=== PATIENT | female | born 1975 | race Caucasian/White ===

== ENCOUNTER → 2021-03-05 10:38 | Outpatient (CLI) | payer OTHER, SELFPAY ==
[2021-03-05 20:55] LABS: SARS-CoV-2 RNA PCR Negative
== END ==
PROVIDERS: PCP Physician Assistant; Visit Provider Physician Assistant
DX: R50.9 Fever, unspecified (principal); Z20.822 Contact with and (suspected) exposure to COVID-19
CPT/HCPCS: C9803; U0003; U0005

== ENCOUNTER 2021-09-01 18:06 | Emergency (ER) | payer OTHER, SELFPAY ==
--- NOTE | ~2021-09-01 | XR_ITS ---
EXAM: XR knee LT min 4V DATE: 09/01/2021 19:47 HISTORY: pain, swelling . COMPARISON: None available. FINDINGS: Normal mineralization. No fracture or dislocation. No lytic or blastic lesion. Joint space s are maintained. No erosion or periosteal change. Soft tissues within normal limits. IMPRESSION: No acute osseous finding in the left knee. Reviewed, dictated and finalized at location K.
[2021-09-01 18:10] VITALS: BP 152/83; PULSE 87; RESP 20; TEMP 36.8; O2SAT 99
--- NOTE | 2021-09-01 19:10 | ED.LOWEXIN ---
HPI - Extremity Injury (Lower) General Chief Complaint: Extremity Injury, Lower <Gracy Griffin PA-C - Last Filed: 09/02/21 01:37> Stated Complaint: left knee injury <CONRADO Garcia Last Filed: 09/02/21 01:37> Time Seen by Provider: 09/01/21 18:53 <CONRADO Garcia Last Filed: 09/02/21 01:37> Source: patient <CONRADO Garcia Last Filed: 09/02/21 01:37> Mode of arrival: ambulatory <CONRADO Garcia Last Filed: 09/02/21 01:37> Limitations: no limitations <CONRADO Garcia Last Filed: 09/02/21 01:37> History of Present Illness HPI Narrative: Patient is a 45-year-old female who presents the ED with report of left knee pain. Patient reports she sustained a twisting injury in June and has had significant pain in her left knee since then. No fall at that time. She was seen at a hospital in [place] in July and had x-rays done, which did not show any acute findings. She has not seen her primary or any usability specialist for this. The pain has since continued. Pain became worse yesterday and today, prompting her evaluation to the ED. She states the pain is worse after prolonged sitting or with walking. She has been utilizing ibuprofen, Tylenol, ice, elevation at home without much relief. No further injury. No fever, chills, redness or warmth of knee. No significant swelling. No numbness/tingling. Patient does have a history of rheumatoid arthritis. <CONRADO Garcia Last Filed: 09/02/21 01:37> Related Data Allergies/Adverse Reactions: Allergies Allergy/AdvReac Type Severity Reaction Status Date / Time Quinolones Allergy Severe throat Verified 09/01/21 18:34 swells [id number] Antimigraine Allergy Mild Unknown Verified 09/01/21 18:34 Agents amoxicillin Allergy Unknown Unknown Verified 09/01/21 18:34 ciprofloxacin Allergy Unknown Rash Verified 09/01/21 18:34 levofloxacin Allergy Unknown Rash Verified 09/01/21 18:34 zolpidem Allergy Unknown Rash Verified 09/01/21 18:34 PIPERACILLIN SODIUM Allergy Unknown Unknown Uncoded 09/01/21 18:34 TAZOBACTAM SODIUM Allergy Unknown Unknown Uncoded 09/01/21 18:34 <Gracy Griffin PA-C - Last Filed: 09/02/21 01:37> Review of Systems Review of Systems: CONSTITUTIONAL: Denies fever, chills. CARDIOVASCULAR: Denies chest pain. RESPIRATORY: Denies dyspnea. SKIN: Denies redness or warmth of L knee. Denies L knee swelling. MUSCULOSKELETAL: Reports L knee pain. NEUROLOGIC: Denies numbness, tingling, or weakness. <Gracy Griffin PA-C - Last Filed: 09/02/21 01:37> All systems reviewed & are unremarkable except as noted in HPI and below <Gracy Griffin PA-C - Last Filed: 09/02/21 01:37> [facility] Past Medical History Medical History: Medical History Anemia, unspecified Yajaira's thyroiditis Hypothyroidism, unspecified Restless leg syndrome Rheumatoid arthritis Vitamin D deficiency <Gracy Griffin PA-C - Last Filed: 09/02/21 01:37> Surgical History Surgical History: Surgical History (Updated 09/01/21 @ 20:07 by Gracy Griffin PA-C) History of section History of ear surgery <Gracy Griffin PA-C - Last Filed: 09/02/21 01:37> Family History Family History: Family History (Updated 09/26/15 @ 23:21 by DOCTOR UNKNOWN) Mother Family history of diabetes mellitus in first degree relative Family history of type 2 diabetes mellitus Father Patient's father is in good health Grandparent Family history of type 2 diabetes mellitus Other Family history of cardiovascular disease <Gracy Griffin PA-C - Last Filed: 09/02/21 01:37> Social History Social History: Social History Smoking status: Never smoker Alcohol intake: never <Gracy Griffin PA-C - Last Filed: 09/02/21 01:37> Exam Narrative: GENERAL: Well appearing, well-nourished, non-t
[2021-09-01] MEDS: KETOROLAC (*BKC) 60 MG/2 ML VIAL IM (20:08)
== END 2021-09-01 20:11 | disposition home or self-care (01) ==
PROVIDERS: Emergency Provider Emergency Medicine; PCP Physician Assistant
DX: M23.92 Unspecified internal derangement of left knee (principal); D64.9 Anemia, unspecified; E03.9 Hypothyroidism, unspecified; M19.90 Unspecified osteoarthritis, unspecified site; G25.81 Restless legs syndrome
CPT/HCPCS: 73564; 96372; 99283; J1885

== ENCOUNTER → 2021-09-17 09:14 | Outpatient (CLI) | payer OTHER, SELFPAY ==
--- NOTE | ~2021-09-17 | MR_ITS ---
EXAMINATION: MR knee LT wo con DATE: 09/17/2021 09:43 INDICATION: Left knee pain and swelling post injury one month prior. TECHNIQUE: Magnetic resonance imaging (MRI) of the left knee was performed without intravenous contra st. Sequences included coronal PD-weighted FSE, coronal PD-weighted FS FSE, sagittal T2-weighted FSE , sagittal PD-weighted FS FSE and axial PD weighted fat saturated FSE. COMPARISON: None. FINDINGS: Medial compartment: Medial meniscus is normal. There is a nondisplaced chondral flap tear which begins along the surface of the articular cartilage at the lateral aspect of the anterior weightbearing medial femoral condyle and which extends approximately 8 mm posteriorly and medially where it involves greater than 50% the cartilage thickness. Articular cartilage is otherwise normal. Lateral compartment: Lateral meniscus is normal. Articular cartilage is normal. Patellofemoral compartment: Additional small deep chondral fissuring with small region of delamination along the bone chondral in terface measuring approximate 5 mm medial to lateral at the central aspect of the medial patellar fac et. Heterogeneous cartilage signal suggesting deep fissuring at the caudal left. The trochlear groove . Ligaments and tendons: Anterior and posterior cruciate ligaments are normal. The medial collateral ligament and fibular libia ateral ligament complex are normal. The extensor mechanism is normal. The visualized medial and later al hamstring tendons as well as the iliotibial band are normal. Fluid: Physiologic amount of fluid in the joint space. No loose osteochondral bodies identified. Focal mild pretibial edema without discrete bursal fluid collection. Osseous/other: Normal marrow signal. No fracture or pathologic marrow replacing process. IMPRESSION: 1. Nondisplaced deep chondral flap tear at the anterior weightbearing medial femoral condyle. 2. Deep chondral fissuring at the central medial patellar facet and inferior aspect of the trochlear groove, the former also with associated small region of delamination at the bone chondral interface. Reviewed, dictated and finalized at location A. IMPRESSION: 1. Nondisplaced deep chondral flap tear at the anterior weightbearing medial fe moral condyle. 2. Deep chondral fissuring at the central medial patellar facet and inferior as pect of the trochlear groove, the former also with associated small region of d elamination at the bone chondral interface.
== END ==
PROVIDERS: PCP Physician Assistant; Visit Provider Orthopaedic Surgery
DX: S76.012A Strain of muscle, fascia and tendon of left hip, initial encounter (principal); X58.XXXA Exposure to other specified factors, initial encounter
CPT/HCPCS: 73721

== ENCOUNTER 2021-10-20 00:51 | Day surgery (SDC) | payer OTHER, SELFPAY ==
[2021-10-13 14:05] VITALS: BMI 33.6
--- NOTE | 2021-10-13 17:31 | SUR.PREOP ---
Report to the Outpatient Waiting Room, entrance under the green pavilion located off [facility], at time 1030 on date 10/20/21. OR Time: 1230. - You and your visitor will be asked to self-screen and do not enter if you have any COVID symptoms. - Only one visitor and NO children visitors are allowed at this time. - The patient visitor is requested to leave or wait in car when not with patient due to restrictions. - A mask is required within the hospital. Patients may have clear liquids (water, carbonated beverages, clear teas, apple juice) until 3 hours prior to surgery with a maximum of 20 ounces. - No food from midnight until time of surgery - Infants may have breast milk until 4 hours before surgery, infant formula 6 hours prior to surgery. - Children will be allowed to drink immediately following surgery. If applicable, please bring a bottle or sippy cup to assist with drinking. Juice, water, soda, and popsicles are readily available. For infants on formula, please bring formula the day of surgery. Pacifiers are allowed. Take the following medications with a SIP of water the morning of surgery: levothyroxine Medications to discontinue per physician n/a Date to take last dose n/a Please no make-up, nail bulgarian, hairspray, perfume, deodorant, or body powder the day of surgery. No jewelry (including any body piercings) or valuables the day of surgery, leave them at home. Please take a shower or bath the night before, or the morning of, surgery with an antibacterial soap. Wear comfortable, loose fitting clothing. Children are encouraged to wear pajamas. - Jewelry must be removed prior to entering the operating room. Rings and piercings that are not removed may be cut off. - The hospital will not accept responsibility for valuables. - Please leave all valuables, including medications, at home the day of surgery. If you are going home after surgery, a licensed [employer] company driver must drive you home. - NO public transportation without another adult. - We recommend that an adult stay with you for 24 hours following discharge. - We also recommend that you do not drive, make important decision, drink alcoholic beverages, or take any drugs that were not prescribed by your health care provider for at least 24 hours after your discharge time. For Pediatric surgeries, we recommend two adults accompany the child home (only one inside the building at this time). Follow any additional instructions given to you from your surgeon. If you or anyone in your household have experienced Covid symptoms in the past week, please notify your surgeon or the nurse liaison at the phone number below for possible testing. Telephone instructions given to miladys cano and asked if any additional questions and then verbalized understanding. Patient advised to call surgeon office or pre surgery nurse liaison [phone] if any additional questions.
--- NOTE | 2021-10-19 11:36 | WPDANESEPPF ---
Anes - Initial Pre Proc Eval Procedure: Operation Date: 10/20/21 12:30 Proposed Procedures p Left Knee Arthroscopy with Repair Chondral Flap Versus Chondroplasty - Lukasz Rubio MD <Asa Rojas MD - Last Filed: 10/23/21 11:50> Date/Time: 10/19/21 11:36 <Asa Rojas MD - Last Filed: 10/23/21 11:50> Surgeon: Lukasz Rubio MD <Asa Rojas MD - Last Filed: 10/23/21 11:50> Pre Op Diagnosis: left knee medial chondral flap tear <Asa Rojas MD - Last Filed: 10/23/21 11:50> Patient Data Age: 45 Gender: F Height: 1.55 m Weight: 80.78 kg <Asa Rojas MD - Last Filed: 10/23/21 11:50> Allergies Allergy/AdvReac Type Severity Reaction Status Date / Time ciprofloxacin Allergy Severe Anaphylaxis Verified 10/20/21 12:01 levofloxacin Allergy Intermediate Hives Verified 10/20/21 12:01 zolpidem Allergy Mild Rash Verified 10/20/21 12:01 <Asa Rojas MD - Last Filed: 10/23/21 11:50> Home Medications Medication Instructions Recorded Confirmed Type infliximab-dyyb 100 mg intravenous See Rx Instructions IV .COMPLEX 10/06/21 10/20/21 History solution (Inflectra) levothyroxine 112 mcg capsule 112 mcg PO DAILY 10/06/21 10/20/21 History methotrexate sodium 10 mg tablet 20 mg PO WEEKLY 10/06/21 10/20/21 History hydrocodone 5 mg-acetaminophen 325 1 tablet PO BID PRN pain #14 tabs 10/20/21 Rx mg tablet <Asa Rojas MD - Last Filed: 10/23/21 11:50> Patient hx anesthesia problems: none <Taras Paulino DO - Last Filed: 10/20/21 13:48> Family hx anesthesia problems: none <Taras Paulino DO - Last Filed: 10/20/21 13:48> Results Review: All pre-operative results and documents have been reviewed as part of the pre-operative evaluation. <Asa Rojas MD - Last Filed: 10/23/21 11:50> [facility] Past Medical History Medical History: Medical History (Updated 10/06/21 @ 08:16 by Zeynep Aguillon RT(R)) Anemia, unspecified Yajaira's thyroiditis Hypothyroidism, unspecified Restless leg syndrome Rheumatoid arthritis Vitamin D deficiency Wears glasses <Asa Rojas MD - Last Filed: 10/23/21 11:50> Surgical History Surgical History: Surgical History (Updated 10/06/21 @ 08:17 by Zeynep Aguillon RT(R)) History of section History of ear surgery History of kidney surgery History of tympanoplasty <Asa Rojas MD - Last Filed: 10/23/21 11:50> Family History Family History: Family History (Updated 10/06/21 @ 08:18 by Zeynep Aguillon RT(R)) Mother Family history of diabetes mellitus in first degree relative Family history of type 2 diabetes mellitus Father Patient's father is in good health Grandparent Family history of type 2 diabetes mellitus Sibling Amyloidosis Other Diabetes mellitus Family history of cardiovascular disease <Asa Rojas MD - Last Filed: 10/23/21 11:50> Social History Social History: Social History Smoking status: Never smoker Alcohol intake: never Substance use: never Living arrangements: with family Gender identity (if verbalized by the patient): Female Spiritual care concerns: No <Asa Rojas MD - Last Filed: 10/23/21 11:50> Anes - Eval Final PreProcedure Day of Procedure 10/19/21 11:36 <Asa Rojas MD - Last Filed: 10/23/21 11:50> Patient weight: obese <Asa Rojas MD - Last Filed: 10/23/21 11:50> Heart: regular rate and rhythm <Asa Rojas MD - Last Filed: 10/23/21 11:50> Lungs: clear to auscultation and normal air movement <Asa Rojas MD - Last Filed: 10/23/21 11:50> Airway: Mallampati scale class II <Asa Rojas MD - Last Filed: 10/23/21 11:50> Neurological: alert and oriented <Asa Rojas MD - Last Filed: 10/23/21 11:50> Last oral intake:
[2021-10-20] VITALS (9 sets, daily range): BP systolic 107–134; BP diastolic 65–78; PULSE 65–91; RESP 10–16; TEMP 36.3–36.5; O2SAT 99–100
--- NOTE | 2021-10-20 07:11 | WPDHPUPDATE1 ---
History and Physical Update Update Date/Time: 10/20/21 07:11 History and Physical has been reviewed, including an updated exam of the patient. There are NO changes in the patient's condition. Risks, benefits, and alternatives have been discussed and questions answered. Patient agrees to proceed with procedure.
[2021-10-20] MEDS: LACTATED RINGERS 1,000 ML 30 ML IV CONT ×2 (12:05→16:04)
[2021-10-20] MEDS: ACETAMINOPHEN 500 MG TABLET 1000 MG PO (12:05)
[2021-10-20] MEDS: CELECOXIB 200 MG CAPSULE PO (12:05)
--- NOTE | 2021-10-20 12:10 | SUR.PREOP ---
pt states has used crutches before and comfortable using,ordered crutches for discharge.
[2021-10-20] MEDS: ceFAZolin 2 GM/D5W 50 ML 2 GM/50 ML BAG IVPB (15:03)
--- NOTE | 2021-10-20 16:10 | W.PM.PROC2 ---
Procedure Note - Detailed Date of Procedure 10/20/21 Pre-op Diagnosis left knee medial chondral flap tear Post-op Diagnosis Same Procedure Performed LEFT KNEE SCOPE Surgeon Lukasz Rubio MD Anesthesia General Description of Procedure PATIENT WAS TAKEN TO THE OPERATING ROOM SUITE. ANESTHESIA WAS INDUCED. THE LEFT LEG WAS PREPPED AND DRAPED STERILE. TROCARS WERE PLACED IN TO THE KNEE JOINT IN THE USUAL FASHION. THE CAMERA WAS INTRODUCED. THERE WAS MILD CHONDROMALACIA TO THE PATELLA FEMORAL JOINT. THE MEDIAL COMPARTMENT SHOWED A CHONDRAL FLAP LESION ON THE MAIN WEIGHT BEARING SURFACE OF THE MEDIAL FEMORAL CONDYLE MEASURING APPROXIMATELY [id number] WITH A DEPTH OF 3 MM. THE TEAR WAS IRREGULAR. THERE WAS VARYING THICKNESS. THERE WAS NO FULL THICKNESS COMPONENT TO THE TEAR AND THEREFORE NO SUBCHONDRAL BONE EXPOSED. THERE WAS NO CHONDROMALACIA TO THE PLATEAU. THERE WAS NO MEDIAL MENISCUS TEAR. USING A SHAVER THE TEAR WAS RESECTED DOWN TO A SMOOTH BASE AND CHONDROPLASTY WAS PREFORMED. SYNOVIUM WAS IMPINGING ON THE FLAP AND A SYNOVECTOMY WAS PREFORMED IN THE REGION. THE ACL WAS INTACT. THE LATERAL MENISCUS WAS NOT TORN. THE LATERAL COMPARTMENT HAD NO CHONDROMALACIA AT THE LATERAL PLATEAU OR LATERAL FEMORAL CONDYLE. THE PATELLA TRACKED WELL WITH THE TROCHLEA AND HAD NO TILT. THE INSTRUMENTS WERE REMOVED AFTER THOROUGH IRRIGATION OF THE KNEE JOINT. THE WOUNDS WERE APPROXIMATED WITH 4.0 NYLON. STERILE DRESSING WAS APPLIED. PATIENT WAS EXTUBATED. Estimated Blood Loss 5 Complications No immediate complications Condition Stable Disposition PACU
== END 2021-10-20 18:15 | disposition home or self-care (01) ==
PROVIDERS: PCP Physician Assistant; Visit Provider Orthopaedic Surgery
PROC: (CPT 29870; principal; 2021-10-20 12:30)
DX: M22.42 Chondromalacia patellae, left knee (principal); M23.8X2 Other internal derangements of left knee; S89.92XA Unspecified injury of left lower leg, initial encounter; X50.1XXA Overexertion from prolonged static or awkward postures, initial encounter; E06.3 Autoimmune thyroiditis; M06.9 Rheumatoid arthritis, unspecified; E55.9 Vitamin D deficiency, unspecified
CPT/HCPCS: 29877; A9270; J0690; J1100; J1170; J1885; J2250; J2405; J2704; J3010; J7120

== ENCOUNTER 2022-04-28 10:25 | Emergency (ER) | payer OTHER, BC, SELFPAY ==
--- NOTE | ~2022-04-28 | CT_ITS ---
EXAMINATION: CT abdomen pelvis wo con DATE: 04/28/2022 15:01 INDICATION: Left flank pain. Hematuria. CVA tenderness. TECHNIQUE: Computed tomography (CT) of the abdomen and pelvis was performed without intravenous contr ast. The dose-length product was 223.27 mGy-cm. Automated exposure control and iterative reconstructi on technique were employed. COMPARISON: CT dated 12/21/2013. FINDINGS: Heart size is normal. No significant pleural or pericardial effusion. The liver, spleen, pa ncreas, adrenal glands and kidneys are unremarkable. Gallbladder is present. Nonobstructive bowel gas pattern. Lung bases are unremarkable. No acute bone or joint abnormality. Nonobstructive bowel patte rn. No abnormal pelvic masses or fluid collections. No significant vascular abnormality. No lymphaden opathy. There is atrophy of the lower pole of the left kidney. Bladder is unremarkable. No hydronephr osis. IMPRESSION: 1. No acute abdominal abnormality. No findings to account for patient's symptoms. Reviewed, dictated and finalized at location B. ENTARY SUPERVISOR IMPRESSION: 1. No acute abdominal abnormality. No findings to account for patient's symptom s.
[2022-04-28 10:56] VITALS: BP 131/78; PULSE 72; RESP 18; TEMP 36.8; O2SAT 99
[2022-04-28 11:14] LABS: Appearance Urine Clear (Clear); Bacteria Urine None Seen /hpf; Bilirubin Urine Negative (Negative); Blood Urine 2+ (Negative); Color Urine Yellow (Yellow); Glucose Urine UA Negative (Negative); Ketones Urine Negative (Negative); Leukocyte Esterase Ur Negative LEU/UL (Negative); Nitrate Urine Negative (Negative); Non Pathogenic Casts 0-2; Protein Urine Negative (Negative); Specific Grav Ur 1.006 (1.001-1.035); Squamous Epithelial Cell Urine Few /hpf (Few); Urobilinogen Urine 0.2 mg/dL (<2.0); WBC Urine 0-5 /hpf
[2022-04-28 11:17] LABS: Add Urine Microscopic? YES
[2022-04-28 13:44] LABS: Basophils Absolute Auto 0.1 K/mm3 (0.0-0.1); Basophils Percent Auto 1.1 % (0.2-1.2); Eosinophils Absolute Auto 0.2 K/mm3 (0-0.3); Eosinophils Percent Auto 2.4 % (0-4.4); Hematocrit 44.1 % (37.0-47.0); Hemoglobin 14.9 g/dL (12.0-15.0); Immature Granulocyte Absolute 0.01 K/mm3 (0.00-0.031); Immature Granulocyte Percent A 0.1 % (0-0.5); Lymphocytes Absolute Auto 2.55 K/mm3 (0.9-3.2); Lymphocytes Percent Auto 33.8 % (18.3-44.2); Mean Corpuscular HGB Conc 33.8 g/dl (32-36); Mean Corpuscular Hemoglobin 30.7 pg (26-34); Mean Corpuscular Volume 90.9 fl (80-100); Mean Platelet Volume 11.3 fl (7.4-10.4); Monocytes Absolute Auto 0.6 K/mm3 (0.1-0.6); Monocytes Percent Auto 7.4 % (2.6-8.5); Neutrophils Absolute Auto 4.2 K/mm3 (1.3-6.7); Neutrophils Percent Auto 55.2 % (45.5-73.1); Platelet Count Result 343 k/mm3 (150-375); Red Blood Count 4.85 M/mm3 (4.2-5.4); Red Cell Distribution Width 13.5 % (11.5-14.5); White Blood Count 7.6 K/mm3 (4.5-10.0)
--- NOTE | 2022-04-28 14:11 | PC.NURSE ---
Dr. Beckwith at bedside to assess pt.
[2022-04-28] MEDS: SODIUM CHLORIDE 0.9% IV 1,000 ML 999 ML IV CONT (14:29)
[2022-04-28] MEDS: PHENAZOPYRIDINE HCL 100 MG TABLET PO (14:30)
[2022-04-28 14:32] LABS: Alanine Aminotransferase 20 U/L (6-35); Albumin Level 4.8 g/dL (3.5-5.1); Alkaline Phosphatase 86 U/L (38-126); Anion Gap 9 mmol/L (8-16); Aspartate Amino Transferase 23 U/L (14-36); Bilirubin,Total 0.5 mg/dL (0.2-1.3); Blood Urea Nitrogen 16 mg/dL (7-17); Calcium 9.2 mg/dL (8.4-10.2); Carbon Dioxide 22 mmol/L (22-30); Chloride 104 mmol/L (98-107); Estimated Glomerular Filt Rate > 60; Glucose 81 mg/dL (65-110); Potassium 4.1 mmol/L (3.4-5.0); Sodium 135 mmol/L (137-145)
--- NOTE | 2022-04-28 15:01 | ED.GENADULT ---
HPI - General Adult General Chief complaint: Urogenital-Female Stated complaint: KIDNEY INFECTION, FLANK PAIN Time Seen by Provider: 04/28/22 13:52 History of Present Illness HPI narrative: 46-year-old female with history of urinary tract infection presenting to the emergency department for evaluation of worsening back pain. Patient had previously been on Augmentin and was switched on Tuesday to Bactrim. Patient states that she is still having some lower back pain with associated nausea and chills. Related Data Home Medications Medication Instructions Recorded Confirmed infliximab-dyyb 100 mg intravenous See Rx Instructions IV .COMPLEX 10/06/21 12/04/21 solution (Inflectra) levothyroxine 112 mcg capsule 112 mcg PO DAILY 10/06/21 12/04/21 methotrexate sodium 10 mg tablet 20 mg PO WEEKLY 10/06/21 12/04/21 Allergies Allergy/AdvReac Type Severity Reaction Status Date / Time ciprofloxacin Allergy Severe Anaphylaxis Verified 04/28/22 13:22 levofloxacin Allergy Intermediate Hives Verified 04/28/22 13:22 zolpidem Allergy Mild Rash Verified 04/28/22 13:22 Review of Systems Review of Systems: All systems reviewed & are unremarkable except as noted in HPI and below PMFSH Past Medical History Medical History Anemia, unspecified Yajaira's thyroiditis Hypothyroidism, unspecified Restless leg syndrome Rheumatoid arthritis Vitamin D deficiency Wears glasses Surgical History Surgical History History of section History of ear surgery History of kidney surgery History of tympanoplasty Family History Family History Mother Family history of diabetes mellitus in first degree relative Family history of type 2 diabetes mellitus Father Patient's father is in good health Grandparent Family history of type 2 diabetes mellitus Sibling Amyloidosis Other Diabetes mellitus Family history of cardiovascular disease Social History Social History Smoking status: Never smoker Alcohol intake: never Substance use: never Living arrangements: with family Gender identity (if verbalized by the patient): Female Spiritual care concerns: No Exam Narrative: APPEARANCE: Well appearing, no pain, no distress, well-nourished. HEAD: normocephalic, atraumatic. EYES: PERRLA/EOMI, conjunctivae clear. NOSE: Normal no drainage NECK: Supple. No adenopathy, no masses. RESPIRATORY: Airway patent, respirations nonlabored. Clear to auscultation bilaterally, no rales, rhonchi, wheezing. CARDIOVASCULAR: Regular rate and rhythm without murmurs rubs or gallops. ABDOMINAL: Soft, nontender, nondistended, normal bowel sounds MUSCULOSKELETAL: Moves all extremities. Strength/ROM intact, No edema, No calf tenderness. NEURO: Alert. Cranial nerves II through XII intact. SKIN: Warm, dry. Normal Color Course Course Emergency Course: 46-year-old female with hematuria currently on antibiotics with concern for pyelonephritis. Patient is afebrile with no leukocytosis. Patient's CMP is similar to her previous. UA does show evidence of hematuria but no evidence of infection. CT abdomen pelvis was ordered to rule out ureteral calculi, patient has no prior history of ureteral calculi. Patient is currently on antibiotics and patient was encouraged to continue taking her antibiotics. Patient was updated the results of her CT scan showing no significant retained urinary calculi and no evidence of pyelonephritis. Patient was afebrile with no leukocytosis no tachycardia and was normotensive. All question concerns were addressed and patient was well-appearing and be discharged from the emergency department. Vital Signs Vital signs: Vital Signs Temperature 98.2 F 04/28/22 10:56 Pulse Rate 72 04/28/22 10:56 Res
== END 2022-04-28 16:29 | disposition home or self-care (01) ==
PROVIDERS: Emergency Provider Emergency Medicine; PCP Physician Assistant
DX: N39.0 Urinary tract infection, site not specified (principal); R10.9 Unspecified abdominal pain; E06.3 Autoimmune thyroiditis; E03.9 Hypothyroidism, unspecified; E55.9 Vitamin D deficiency, unspecified; G25.81 Restless legs syndrome; M06.9 Rheumatoid arthritis, unspecified; Z86.2 Personal history of diseases of the blood and blood-forming organs and certain disorders involving the immune mechanism
CPT/HCPCS: 36415; 74176; 80053; 81001; 85025; 96360; 96361; 99284; A9270; J7030

== ENCOUNTER → 2022-12-02 13:35 | Outpatient (CLI) | payer OTHER, BC, SELFPAY ==
--- NOTE | ~2022-12-02 | XR_ITS ---
XR chest 2V DATE: 12/02/2022 13:59 INDICATION: Cough TECHNIQUE: 2 views COMPARISON: 07/30/2015 PA and lateral chest FINDINGS: Normal heart size. No hilar or mediastinal enlargement. No pulmonary infiltrate or consolid ation, pleural effusion or pulmonary vascular congestion or pneumothorax is detected. IMPRESSION: No active cardiopulmonary disease Reviewed, dictated and finalized at location L.
== END ==
PROVIDERS: PCP Physician Assistant; Visit Provider Physician Assistant
DX: R05.9 Cough, unspecified (principal)
CPT/HCPCS: 71046

== ENCOUNTER 2024-05-25 12:13 | Outpatient (CLI) | payer OTHER, SELFPAY ==
--- NOTE | ~2024-05-25 | XR_ITS ---
EXAMINATION: XR chest 2V 05/25/2024 12:26 INDICATION: Low-grade pyrexia. Fever. PROCEDURE: 2 view chest COMPARISON: Comparison to multiple prior studies sequentially, with oldest reviewed study dated 09/2011. FINDINGS: The lungs are clear. The cardiomediastinal silhouette is within normal limits. There are no pleural effusions. There is no pneumothorax suspected. IMPRESSION: 1: NO ACUTE CARDIOPULMONARY DISEASE. Reviewed, dictated and finalized at location A.
== END 2024-05-25 12:14 | disposition home or self-care (01) ==
LOC: MICIMG 12:16
PROVIDERS: PCP Physician Assistant; Visit Provider Physician Assistant
DX: R50.9 Fever, unspecified (principal)
CPT/HCPCS: 71046

== ENCOUNTER 2024-07-04 09:37 | Emergency (ER) | payer OTHER, SELFPAY ==
--- NOTE | ~2024-07-04 | CT_ITS ---
EXAMINATION: CT abdomen pelvis w con DATE: 07/04/2024 12:25 INDICATION: Abdominal pain, nausea and vomiting TECHNIQUE: Computed tomography (CT) of the abdomen and pelvis was performed with 100 mL Omnipaque-350 intravenous contrast. Automated exposure control and iterative reconstruction technique were employe d. The dose-length product was 280.33 mGy-cm. COMPARISON: 04/28/2022 FINDINGS: Lung bases are clear. Heart size is normal. No pericardial or pleural effusion. 5 mm low-attenuation likely hepatic cyst versus hemangioma at the dome of the liver. Gallbladder, spleen, pancreas, bilate ral adrenal glands and right kidney are normal. 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 It is unclear from the provided images. There is fusion of the ureters proximal to the bladder or complete separate left ureters. Bladder is normal. 3.5 cm subserosal fibroid along the anterior body of the anteverted uterus. 1.7 cm left ovarian cyst/follicl e. Right ovary is unremarkable. Small amount of likely physiologic free fluid in the deep pelvis. [place] els including the appendix are normal. No abscess or free intraperineal gas. No pathologically enlarg ed abdominal or pelvic lymphadenopathy. Mild lumbar and lower thoracic spondylosis. IMPRESSION: 1. Small amount of likely physiologic free fluid in the deep pelvis. No other acute intra-abdominal/p elvic process. 2. Moderate atrophy at the lower pole of the left kidney likely secondary to a duplicated renal colle cting system which can predispose towards reflux and ascending urinary tract infection particularly i nvolving the lower pole and which may account for the chronic atrophy. Reviewed, dictated and finalized at location A. IMPRESSION: 1. Small amount of likely physiologic free fluid in the deep pelvis. No other a cute intra-abdominal/pelvic process. 2. 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
[2024-07-04 10:04] VITALS: BP 111/57; PULSE 84; RESP 16; TEMP 36.6; O2SAT 98
[2024-07-04 10:09] LABS: Basophils Percent Auto 0.2 % (0.2-1.2); Eosinophils Absolute Auto 0.1 K/mm3 (0-0.3); Eosinophils Percent Auto 1.3 % (0-4.4); Hematocrit 39.2 % (37.0-47.0); Hemoglobin 12.4 g/dL (12.0-15.0); Immature Granulocyte Absolute 0.03 K/mm3 (0.00-0.031); Immature Granulocyte Percent A 0.3 % (0-0.5); Lymphocytes Percent Auto 3.4 % (18.3-44.2); Mean Corpuscular HGB Conc 31.6 g/dl (32-36); Mean Corpuscular Volume 94.9 fl (80-100); Mean Platelet Volume 10.2 fl (7.4-10.4); Monocytes Absolute Auto 0.3 K/mm3 (0.1-0.6); Monocytes Percent Auto 3.2 % (2.6-8.5); Neutrophils Percent Auto 91.6 % (45.5-73.1); Platelet Count Result 230 k/mm3 (150-375); Red Blood Count 4.13 M/mm3 (4.2-5.4); Red Cell Distribution Width 14.6 % (11.5-14.5); White Blood Count 8.7 K/mm3 (4.5-10.0)
--- NOTE | 2024-07-04 10:10 | PC.NURSE ---
Patient asked to provide urine specimen. Patient reports she is unable at this time.
--- OUTSIDE RECORDS SUMMARY | 2024-07-04 10:12 | XMS_ITS | Encounter Summary ---
Author Organization [facility] Address [address] [place] [address] Care Team Providers Care Fbi Profiler Name Role Phone Gisele Medina Primary Care Pr ovider Rosita Aguilera MD Unavailable [phone] Encounter Details Date Type Department Care Team (Late st Contact Info) Description 07/03/2021 Orders Only [facility] Health Information Management [address] [place] [address] Scanning, Provider Social History Tobacco Use Types Packs/Day Years Used Date Smoking Tobacco: Never Smokeless Tobacco: Never Alcohol Use Standard Drinks/Week Comments Not Currently 0 (1 standard drink = 0.6 oz pur e alcohol) Comments Unknown Sex and Gender Information Value Date Recorded Sex Assigned at Not on file Legal Sex Female 11:57 PM [place]OVER Gender Identity Not on file Sexual Orientation Not on file documented as of this encounter Plan of Treatment Not on file documented as of this encounter Procedures Procedure Name Priority Date/Time Associated Diagnosis Comments SCAN - OTHER ORDERS 07/03/2021 documented in this encounter Results * SCAN - OTHER ORDERS (07/03/2021) us Provider Scanning Final Result documented in this encounter Visit Diagnoses Not on filedocumented in this encounter Additional Health Concerns Infection Onset Date Last Indicated Resolved Time COVID: Recovered Comment:Added based on recent COVID infection. 03/29/2021 03/31/2021 07/27/2021 3:05 AM C DT COVID: Suspected 01/01/2022 01/01/2022 01/02/2022 3:06 AM CDT COVID: Suspected 01/01/2022 01/01/2022 01/02/2022 8:59 AM CDT COVID: Suspected 07/02/2022 07/02/2022 07/02/2022 11:33 PM CDT COVID: Suspected 11/24/2022 11/24/2022 11/24/2022 3:44 PM CDT COVID: Suspected 05/18/2024 05/18/2024 05/18/2024 3:54 PM CDT documented as of this encounter Care Teams Fbi Profiler Relationship Specialty Start Date End Date Gisele Medina PA PCP - General 09/16/16 Rosita Aguilera MD [address] [place] [address] Medical Oncologist/Composition Weatherboard Installer Hematology 04/30/20 documented as of this encounter
--- OUTSIDE RECORDS SUMMARY | 2024-07-04 10:12 | XMS_ITS | Referral Summary ---
Author Organization [facility] Address [address] [place] [address] Care Team Providers Care Electric Blanket Wirer Name Role Phone Gisele Medina Primary Care Pr ovider Rosita Aguilera MD [facility] [phone] Encounters * This document contains information received from the source organization and may not represent a complete record from that organization. Date Type Department Care Team Description 06/14/2024 8:00 AM CDT Infusion [facility] Infusion Therapy [address] [facility] 5th [place] [address] [place] [address] Long-term current use of high risk medication other than anticoagulant (Primary Dx) 05/18/2024 9:39 AM CDT - 05/18/2024 11:59 PM CDT Hospital Encounter [facility] [address] [place] [address] Respiratory illness; Fever, unspecified fever cause; Cough, unspecified type; Body aches; Nonintractable headache, unspecified chronicity pattern, unspecified headache type; Sore throat; Nasal congestion; Runny nose; Fatigue, unspecified type Discharge Disposition: Discharge to home or self care 05/18/2024 9:45 AM CDT Clinical Support [facility] at [address] [address] Encounter for screening for COVID-19 [Z11.52] (Primary Dx) 05/17/2024 1:00 PM CDT Telemedicine [facility] Psychiatry [address] [facility] 2nd [address] [place] [id number] Leandra Yanez, JOSEPH Adjustment disorder with depressed mood in remission (Primary Dx) 05/10/2024 Telephone [facility] Cardiology [address] [facility] 8th [place] [address] [place] [address] Anand Portillo New Patient 05/03/2024 1:00 PM TEACHER OF GIFTED STUDENTS Infusion [facility] Infusion Therapy [address] [facility] 5th [place] [address] [place] [address] Long-term current use of high risk medication other than anticoagulant (Primary Dx) 04/19/2024 9:00 AM TEACHER OF GIFTED STUDENTS Office Visit [facility] Psychiatry [address] [facility] 2nd Floor [address] [place] [address] Leandra Yanez LCSW Adjustment disorder with depressed mood in remission (Primary Dx) 04/11/2024 10:15 AM TEACHER OF GIFTED STUDENTS Lab [facility] Endocrinology Metabolism and Lipid [address] [facility] 5th [place] [address] [place] [address] Rheumatoid arthritis of multiple sites with negative rheumatoid factor (HCC) 04/11/2024 9:40 AM TEACHER OF GIFTED STUDENTS Office Visit [facility] Rheumatology [address] [facility] 5th [place] [address] [place] [address] Denisa Izaguirre MD Rheumatoid arthritis of multiple sites with negative rheumatoid factor (HCC) (Primary Dx); Encounter for long-term (current) use of high-risk medication from Last 3 Months Allergies Active Allergy Reactions Criticality Noted Date Comments Ciprofloxacin Anaphylaxis High Levofloxacin Hives Medium 05/04/2016 Medications * This document contains information received from the source organization and may not represent a complete record from that organization. ALPRAZolam (XANAX) 0.25 mg tablet 2 12/21/19 18 Active omeprazole (PriLOSEC) 20 mg capsule Take by mouth daily 5 09/29/19 19 Active levothyroxine (SYNTHROID) 100 mcg tablet daily Active amoxicillin-clavul anate (AUGMENTIN) 875-125 mg per tablet amoxicillin 875 mg-potassium clavulanate 125 mg tablet TAKE 1 TABLET BY MOUTH EVERY 12 HOURS Active fluconazole (DIFLUCAN) 150 mg tablet fluconazole 150 mg tablet TAKE 1 TABLET BY MOUTH EVERY DAY FOR 1 DAY NEEDED Active ketorolac (ketorolac) 30 mg/mL (1 mL) injection 1 mL (30 mg total) every 6 hours Active Euthyrox 112 mcg tablet Take 1 tablet (112 mcg total) by mouth daily 05/29/19 22 Active folic acid (FOLVITE) 1 mg tablet Take 1 tablet (1 mg total) by mouth daily 90 tablet 3 04/07/19 23 Active ondansetron ODT (ZOFRAN-ODT) 4 mg disintegrating tablet DISSOLVE 1 TABLET ON THE TONGUE EVERY 6 HOURS NEEDED 09/10/19 24 Active levothyroxine (SYNTHROID) 75 mcg tablet Take 1 tablet (75 mcg total) by mouth daily 08/03/19 24 Active methotrexate 2.5 mg tabletIndications: Rheumatoid arthritis of multiple sites with negative rheumatoid factor (HCC) TAKE 8 TABLETS BY MOUTH ONCE A WEEK 96 tablet 04/23/19 25 Active Active Problems Problem Noted Date Diagnosed Date Rheumatoid arthritis [facility] with negative rheumatoid factor 12/24/2020 Assessment & Plan (12/24/2020 9:42 AM CDT): RA is well controlled on current therapy with MTX, SSZ, HCQ and Infliximab. She just finished loading dose regimen for infliximab in the beginning of November and will be starting maintenance dosing. We will wean off her triple therapy as she tolerates now that she is doing well on Infliximab. -Continue MTX 20 mg weekly, folic acid 1 mg daily, SSZ 1.5g BID, Infliximab 3 mg/kg Q8W -Stop HCQ -Consider weaning SSZ at next visit Corneal edema 04/02/2020 Assessment & Plan (04/02/2020 1:35 PM TEACHER OF GIFTED STUDENTS): Mild. Suspect was worse last 2 mornings. Pach ordered today- slightly thicker CCT than last measurements in 2018. rec no contact lens (CL) wear for 1 week, then remove earlier in the day after re-challenge. If symptoms return, rec corneal consult. If better- may consider dailies next Cl refit. Iron deficiency anemia 05/19/2018 Iron deficiency anemia, unspecified 05/18/2018 Long-term current use of hig h risk medication other than anticoagulant 09/15/2017 Assessment & Plan (12/24/2020 9:42 AM CDT): On MTX, SSZ, and infliximab for RA. She will be stopping HCQ. The Patient has had baseline CBC, CMP, HBV, HCV and TB screening. -CBC and CMP every 3 months -Ok to continue above medications unless results from above testing are concerning Optic disc cupping, bilateral 09/15/2017 Assessment & Plan (04/02/2020 1:34 PM TEACHER OF GIFTED STUDENTS): Monitor. Mild ocular HTN, chronic. Has follow up/ recall next Fall (and just saw Dr Calvo 12/28/19). Iron deficiency anemia due to chronic blood loss 09/16/2016 Menorrhagia 09/16/2016 Hypothyroidism 07/14/2013 Overview (06/02/2016): HYPOTHYROIDISM NOS Lymphocytic thyroiditis 07/14/2013 Overview (06/04/2016): CHR LYMPHOCYT THYROIDIT Immunizations Immunization Administration Dates Next Due Influenza, Trivalent, Cell C ulture-based MDCK, Preservative Free, Antibiotic Free, Intramuscular 12/20/2023 ZOSTER Recombinant 06/04/2020 Social History Tobacco Use Types Packs/Day Years Used Date Smoking Tobacco: Never Smokeless Tobacco: Never Tobacco Cessation:Counseling Given: Not Answered Alcohol Use Standard Drinks/Week Comments Not Currently 0 (1 standard drink = 0.6 oz pur e alcohol) AUDIT-C Answer Date Recorded Q1: How often do you have a drink containing alcohol? Never 02/16/2024 Q2: How many drinks containi ng alcohol do you have on a typical day when you are drinking? Patient does not drink Q3: How often do you have si x or more drinks on one occasion? Never 02/16/2024 PHQ-2 Answer Date Recorded PHQ-2 Total Score 2 02/23/2024 Exercise Vital Sign Answer Date Recorde d On average, how many days pe r week do you engage in moderate to strenuous exercise (like a brisk walk)? 6 days 02/16/2024 On average, how many minutes do you engage in exercise at this level? 40 min 02/16/2024 PHQ-9 Answer Date Recorded PHQ-9 Total Score 9 02/23/2024 Comments Unknown Sex and Gender Information Value Date Recorded Sex Assigned at Not on file Legal Sex Female 11:57 PM TEACHER OF GIFT[employer]UDENTS Gender Identity Not on file Sexual Orientation Not on file Last Filed Vital Signs Vital Sign Reading Time Taken Comments Blood Pressure 130/83 06/14/2024 8:01 AM CDT Pulse 69 06/14/2024 8:01 AM CDT Temperature 36.4 C (97.6 F) 04/11/2024 9:37 AM TEACHER OF GIFTED STUDENTS Respiratory Rate 14 06/14/2024 8:01 AM CDT Oxygen Saturation 100% 05/03/2024 1:13 PM TEACHER OF GIFT[employer]UDENTS Inhaled Oxygen Concentration - - Weight 62.6 kg (138 lb) 05/03/2024 12:40 PM TEACHER OF GIFT[employer]UD[employer] Height 157.5 cm (5' 2 ) 04/11/2024 9:37 AM TEACHER OF GIFTED STUDENTS Body Mass Index 25.24 04/11/2024 9:37 AM TEACHER OF GIFTED STUDENTS Plan of Treatment Not on file Procedures Procedure Name Priority Date/Time Associated Diagnosis Comments INFLUENZA A/B, RSV, AND COVID-19 PCR Routine 05/18/2024 9:39 AM CDT Respiratory illness Fever, unspecified fever cause Cough, unspecified type Body aches Nonintractable headache, unspecified chronicity pattern, unspecified headache type Sore throat Nasal congestion Runny nose Fatigue, unspecified type COMPREHENSIVE METABOLIC PANEL Routine 04/11/2024 10:15 AM TEACHER OF GIFTED STUDENTS Rheumatoid arthritis of multiple sites with negative rheumatoid factor (HCC) CBC WITH AUTO DIFFERENTIAL Routine 04/11/2024 10:15 AM TEACHER OF GIFTED STUDENTS Rheumatoid arthritis of multiple sites with negative rheumatoid factor (HCC) SCREENING MAMMOGRAM BILATERAL W HOLDEN Schedule Routine, Read Routine (OP Routine) 08/16/2023 8:13 AM CDT Screening mammogram, encounter for HEPATITIS C ANTIBODY Routine 06/04/2020 11:11 AM CDT Rheumatoid arthritis of multiple sites with negative rheumatoid factor (HCC) High risk medications (not anticoagulants) long-term use from Last 3 Months or Most Recently Relevant to Health Maintenance Results * Influenza A/B, RSV, and COVID-19 PCR Nasopharyngeal (05/18/2024 9:39 AM CDT) Pathologist [facility] [place] COVID-19 RNA Negative Negative Influenza A RNA Negative Negative [facility] Influenza B RNA Negative Negative [facility] RSV RNA Negative Negative [facility] Comment: Interpretive data: Testing performed by [facility]. This test is performed using the [employer] Xpert Xpress CoV-2/Flu/RSV plus assay. This is a multiplex, real-time reverse transcriptase PCR assay intended for the qualitative detection of nucleic acid from SARS-CoV-2, influenza A, influenza B, and respiratory syncytial virus. This assay has been cleared by the [place] Food and Drug administration. The performance characteristics have been verified by the [facility]. Results must be considered in the clinical context, and a negative result does not rule out infection. Interpretive Data last revised 2023 Nasopharyngeal 05/18/2024 9: 39 AM CDT 05/18/2024 3:04 PM CDT Narrative [facility] - 05/18/2024 3:53 PM CDT Bill to C0059 - [facility] Occupational Health Patient is employed by/enrolled at:->[facility] (All Locations) Type of [employer] employee/student:->[employer] Employee Is the patient experiencing any symptoms consistent with COVID (eg. Fever, cough, shortness of breath)?->Yes Reason for testing?->Symptomatic Is the Patient experiencing symptoms consistent with COVID?->Yes us Taras Rivera MD LAB MICROBIOLOGY - NERAL ORDERABLES Final Result [facility] [address] Department [place] [address] * CBC with auto differential (04/11/2024 10:15 AM TEACHER OF GIFTED STUDENTS) Pathologist [facility] White Blood Count 8.5 3.6 - 11.2 K/uL [facility] RBC 4.20 3.63 - 4.92 M/uL [facility] Hemoglobin 12.9 11.9 - 15.5 g/dL [facility] Hematocrit 38.5 36.1 - 44.3 % [facility] MCV 91.7 80.0 - 97.6 fL [facility] MCH 30.9 26.7 - 33.7 pg [facility] MCHC 33.7 32.7 - 35.5 g/dL [facility] RBC Dist Width 12.9 12.3 - 17.0 % [facility] Platelet Count 264 140 - 440 K/uL [facility] MPV 9.4 6.8 - 10.4 fL [facility] Neutrophils % 64.8 38.7 - 74.5 % [facility] Lymphocyte % 24.7 20.0 - 54.3 % [facility] Monocytes % 7.2 4.3 - 13.5 % [facility] Eosinophils % 2.4 0.0 - 6.0 % [facility] Basophil % 0.9 0.0 - 3.0 % [facility] Absolute Neutrophil 5.5 1.8 - 6.6 K/uL [facility] Absolute Lymphocyte 2.1 0.8 - 3.3 K/uL [facility] Absolute Monocyte 0.6 0.2 - 1.2 K/uL [facility] Absolute Eosinophil 0.2 0.0 - 0.5 K/uL [facility] Absolute Basophil 0.1 0.0 - 0.2 K/uL [facility] Nucleated RBC % 0.0 0.0 - 0.4 /100 WBC [facility] Blood 04/11/2024 10:1 5 AM TEACHER OF GIFTED STUDENTS 04/11/2024 11:06 AM TEACHER OF GIFTED STUDENTS us Denisa Izaguirre MD LAB BLOOD ORDERABLES Final Result [facility] * Comprehensive metabolic panel (04/11/2024 10:15 AM TEACHER OF GIFTED STUDENTS) Total Protein 7.5 6.1 - 8.4 g/dL [facility] Albumin 4.3 3.5 - 5.2 g/dL [facility] Calcium 9.3 8.6 - 10.3 mg/dL [facility] BUN 17 7 - 23 mg/dL [facility] Total Bilirubin 0.25 0.20 - 1.40 mg/dL [facility] Alk Phos, Total 53 35 - 129 IU/L [facility] AST (SGOT) 19 11 - 47 IU/L [facility] ALT (SGPT) 16 6 - 53 IU/L [facility] Creatinine 0.69 0.60 - 1.10 mg/dL [facility] Sodium 140 135 - 145 mmol/L [facility] Potassium 4.1 3.3 - 5.1 mmol/L [facility] Chloride 104 95 - 107 mmol/L [facility] CO2 Content 25 21 - 29 mmol/L [facility] Glucose 93 64 - 99 mg/dL [facility] Comment: NONFASTING GLUCOSE RANGE = 64-199 mg/dL FASTING GLUCOSE 64 - 99 = NORMAL FASTING GLUCOSE 100 - 125 = IMPAIRED FASTING GLUCOSE FASTING GLUCOSE >=126 = PROVISIONAL DIAGNOSIS OF DIABETES eGFR >90.0 >60.0 mL/min/1.7 3 m2 [facility] Blood 04/11/2024 10:1 5 AM TEACHER OF GIFTED STUDENTS 04/11/2024 11:06 AM TEACHER OF GIFTED STUDENTS Denisa Izaguirre MD LAB BLOOD ORDERABLES Final Result [facility] * Screening Mammogram Bilateral W Holden (08/16/2023 8:13 AM CDT) Anatomical Region Laterality Modality Breast Bilateral Mammography Narrative 08/17/2023 10:28 AM CDT Mammogram Technique: Bilateral Digital Breast Tomosynthesis, Bilateral C-view 2D Screening mammogram. Views obtained: bilateral craniocaudal and bilateral mediolateral oblique. Computer Aided Detection was performed. Mammogram Findings: The present examination has been compared to prior imaging studies performed at [facility] on 08/14/2020, 09/23/2021 and 08/13/2022. The breasts are heterogeneously dense, which may obscure small masses. There is no suspicious abnormality in either breast. There are no significant changes from the prior study. Impression: There is no mammographic evidence of malignancy. Annual screening mammography is recommended. If supplemental screening is desired, breast MRI would be recommended in this patient with heterogeneously dense breasts. OVERALL FINAL ASSESSMENT: BI-RADS CATEGORY 1: Negative. Procedure Note Xiomara Damon MD - 08/17/2023 Mammogram Technique: Bilateral Digital Breast Tomosynthesis, Bilateral C-view 2D Screening mammogram. Views obtained: bilateral craniocaudal and bilateral mediolateral oblique. Computer Aided Detection was performed. Mammogram Findings: The present examination has been compared to prior imaging studies performed at [facility] on 08/14/2020, 09/23/2021 and 08/13/2022. The breasts are heterogeneously dense, which may obscure small masses. There is no suspicious abnormality in either breast. There are no significant changes from the prior study. Impression: There is no mammographic evidence of malignancy. Annual screening mammography is recommended. If supplemental screeningis desired, breast MRI would be recommended in this patient with heterogeneously dense breasts. OVERALL FINAL ASSESSMENT: BI-RADS CATEGORY 1: Negative. us Self Screening Mammogram IMG MAMMO PROCEDURES Fi nal Result * Hepatitis C antibody (06/04/2020 11:11 AM CDT) Hep C Ab Nonreactive Nonreactive [facility] Comment:Antibodies to HCV no t detected. Does NOT exclude the possibility of recent exposure to HCV. Blood specimen (specimen) 06/04/2020 11:11 AM CDT 06/04/2020 11:25 AM CDT Piyush Yap MD LAB MICROBIOLOGY - GENER AL ORDERABLES Edited Result - Final [facility] Department [place] [address] from Last 3 Months or Most Recently Relevant to Health Maintenance Insurance [employer] H[employer] Address: [address] [address] [place] [address] [employer] Address: [address] [address] [place] [address] [employer] Address: [facility] [address] [place] [address] Care Teams Electric Blanket Wirer Relationship Specialty Start Date End Date Gisele Medina PA PCP - General 09/16/16 Rosita Aguilera MD [address] [place] [address] Medical Oncologist/Dragline Mechanic Hematology 04/30/20
--- OUTSIDE RECORDS SUMMARY | 2024-07-04 10:12 | XMS_ITS | Data Portability ---
Author Organization [facility], Main Office Address [address] [place] [address] Assessment No assessment recorded. Plan of Treatment Reminders Order Date Submit Date Provider Last Modified By Organization Details Last Modified Time Details Appointments None recorded. Lab TSH + free T4, serum 2022 024 [employer] [facility], [address], [address], [place], [address], 4 11:51:40 T3, free, serum or plasma 2022 024 [employer] [facility], [address], [address], [place], [address], 4 11:51:44 CMP, serum or plasma 2022 024 [employer] [facility], [address], [place], [address], 4 11:51:42 HbA1c (hemoglobin A1c), blood 2022 024 [employer] [facility], [address], [place], [address], 4 11:51:43 lipid panel, serum 2022 024 [employer] [facility], [address], [place], [address], 4 11:51:41 CBC w/ auto diff 2022 024 [employer] [facility], [address], [address], [place], [address], 4 11:51:45 iron + TIBC + ferritin, serum 2022 024 [employer] [facility], [address], [address], [place], [address], 4 11:51:38 TSH + free T4, serum 2022 023 [employer] [facility], [address], [address], [place], [address], 3 15:45:07 T3, free, serum or plasma 2022 023 [employer] [facility], [address], [address], [place], [address], 3 15:45:10 noninvasive colorectal cancer DNA + occult blood screening, QL, stool 2022 023 [employer] (Cologuard Orders Only), [address], [address], [place], [address], 3 14:27:07 lipid panel, serum 2022 023 [employer] [facility], [address], [address], [place], [address], 3 15:45:08 CMP, serum or plasma 2022 023 [employer] [facility], [address], [address], [place], [address], 3 15:45:09 Referral None recorded. Procedures None recorded. Surgeries None recorded. Imaging None recorded. Medication Orders None recorded. Patient TargetsNo targets recorded. Patient InstructionsNo instructions recorded. Reason for Referral None Reported. Results Created Date Observation Date Name Description Value Unit Range Abnormal Flag Note LastModifiedBy Organization Detail LastModifiedTime 06/30/19 23 06/29/2022 COLOG UARD cologuard result reportable Sample Could Not Be Proces sed n/a An empty colle ction kit was recei willie in the labor atory . The patie nt will be conta cted to initi ate a new sampl e colle ction . Not Available [facility] (Cologuard Orders Only) [address], [place], [address], 06/29/2022 14:27:07 06/21/19 24 06/21/2023 COLOG UARD cologuard result Cancel led - Order d not applic able Not Available [facility] (Cologuard Orders Only) [address], [place], [address], 06/21/2023 11:39:10 10/06/19 23 10/05/2022 COLOG UARD cologuard result Cancel led - Duplic ate Order not applic able Not Available [facility] (Cologuard Orders Only) [address], [place], [address], 10/05/2022 22:28:13 06/15/19 23 06/15/2022 TSH+F REE T4 TSH 3.17 mIU/L normal Refer ence Range > or = 20 Years 0.40- 4.50 Pregn mahendra Range s First trime ster 0.26- 2.66 Secon d trime ster 0.55- 2.73 Third trime ster 0.43- 2.91 Not Available [facility] [address] [place], [address], 06/15/2022 04:32:23 06/15/1906/15/2022 TSH+F REE T4 T4, free 1.1 NG/dL 0.8-1. 8 normal Not Available [facility] [address] [place], [address], 06/15/2022 04:32:23 06/15/19 23 06/15/2022 LIPID PANEL WITH RATIO S cholesterol, total 191 mg/dL <200 normal Not Available [facility] [address] [address] [place], [address], 06/15/2022 04:32:24 06/15/19 23 06/15/2022 LIPID PANEL WITH RATIO S HDL cholesterol 51 mg/dL > or = 50 normal Not Available [facility] [address] [address] [place], [address], 06/15/2022 04:32:24 06/15/19 23 06/15/2022 LIPID PANEL WITH RATIO S triglyceride s 166 mg/dL <150 high Not Available [facility] [address] [address] [place], [address], 06/15/2022 04:32:24 06/15/19 23 06/15/2022 LIPID PANEL WITH RATIO S LDL-choleste rol 112 mg/dL _(david c) high Refer ence range : <100 Andrew able range <100 mg/dL for prima ry preve ntion ; <70 mg/dL for patie nts with CHD or diabe tic patie nts with > or = 2 CHD risk facto rs. LDL-C is now calcu lated using the Esther n-Hop kins calcu jaden n, which is a valid ated novel bustero darlyn cuencate r accur acy than the Fried seb equat ion in the estim ation of LDL-C . Esther mccord SS et al. KARTHIK. 2013; 310(1 9): 2061- 2068 (http ://ed ucati on.Qu Adrian preston [employer]. com/f aq/FA Q164) Not Available [facility] [address] [address] [place], [address], 06/15/2022 04:32:24 06/15/19 23 06/15/2022 LIPID PANEL WITH RATIO S chol/HDLC ratio 3.7 (calc ) <5.0 normal Not Available [facility] [address] [address] [place], [address], 06/15/2022 04:32:24 06/15/19 23 06/15/2022 LIPID PANEL WITH RATIO S LDL/HDL ratio 2.2 (calc ) Below avera ge Risk: <2.34 [place] ge Risk: 2.35- 4.12 Moder ate Risk: 4.13- 5.56 High Risk: >5.57 Not Available [address], [address], 06/15/2022 04:32:24 06/15/19 23 06/15/2022 LIPID PANEL WITH RATIO S non HDL cholesterol 140 mg/dL _(david c) <130 high For patie nts with diabe tish plus 1 major ASCVD risk facto r, treat ing to a non-H DL-C goal of <100 mg/dL (LDL- C of <70 mg/dL ) is shaan reinoso pekatarzyna c optio n. Not Available [address], [address], 06/15/2022 04:32:24 06/15/1906/15/2022 COMPR EHENS EDNA METAB OLIC PANEL glucose 78 mg/dL 65-99 normal Fasti ng refer ence inter amanda Not Available [address], [address], 06/15/2022 04:32:25 06/15/1906/15/2022 COMPR EHENS EDNA METAB OLIC PANEL urea nitrogen (BUN) 13 mg/dL 7-25 normal Not Available [address], [address], 06/15/2022 04:32:25 06/15/1906/15/2022 COMPR EHENS EDNA METAB OLIC PANEL creatinine 0.85 mg/dL 0.50-0 .99 normal Not Available [address], [address], 06/15/2022 04:32:25 06/15/19 23 06/15/2022 COMPR EHENS EDNA METAB OLIC PANEL eGFR 85 mL/mi n/1.7 3m2 > or = 60 normal The eGFR is based on the CKD-E PI 2020 equat ion. To calcu late the new eGFR from a previ ous Creat inine or Cysta tin C resul t, go to https ://artie kendall.sánchez chavez/pr ofess ional s/ kdoqi /gfr% 5Fcal culat or Not Available [address], [address], 06/15/2022 04:32:25 06/15/19 23 06/15/2022 COMPR EHENS EDNA METAB OLIC PANEL BUN/creatini ne ratio NOT APPLIC ABLE (calc ) 6-22 Not Available [address], [address], 06/15/2022 04:32:25 06/15/19 23 06/15/2022 COMPR EHENS EDNA METAB OLIC PANEL sodium 135 mmol/ L 135-14 6 normal Not Available [address], [address], 06/15/2022 04:32:25 06/15/19 23 06/15/2022 COMPR EHENS EDNA METAB OLIC PANEL potassium 4.7 mmol/ L 3.5-5. 3 normal Not Available [facility] [place] [place] [address] [place], [address], 06/15/2022 04:32:25 06/15/19 23 06/15/2022 COMPR EHENS EDNA METAB OLIC PANEL chloride 102 mmol/ L 98-110 normal Not Available [facility] [address], [address], 06/15/2022 04:32:25 06/15/19 23 06/15/2022 COMPR EHENS EDNA METAB OLIC PANEL carbon dioxide 24 mmol/ L 20-32 normal Not Available [facility] [address], [address], 06/15/2022 04:32:25 06/15/19 23 06/15/2022 COMPR EHENS EDNA METAB OLIC PANEL calcium 9.1 mg/dL 8.6-10 .2 normal Not Available [address], [address], 06/15/2022 04:32:25 06/15/19 23 06/15/2022 COMPR EHENS EDNA METAB OLIC PANEL protein, total 7.4 g/dL 6.1-8. 1 normal Not Available [address], [address], 06/15/2022 04:32:25 06/15/19 23 06/15/2022 COMPR EHENS EDNA METAB OLIC PANEL albumin 4.2 g/dL 3.6-5. 1 normal Not Available [address], [address], 06/15/2022 04:32:25 06/15/19 23 06/15/2022 COMPR EHENS EDNA METAB OLIC PANEL globulin 3.2 g/dL_ (calc ) 1.9-3. 7 normal Not Available [address], [address], 06/15/2022 04:32:25 06/15/19 23 06/15/2022 COMPR EHENS EDNA METAB OLIC PANEL albumin/glob ulin ratio 1.3 (calc ) 1.0-2. 5 normal Not Available [address], [address], 06/15/2022 04:32:25 06/15/19 23 06/15/2022 COMPR EHENS EDNA METAB OLIC PANEL bilirubin, total 0.4 mg/dL 0.2-1. 2 normal Not Available [address], [address], 06/15/2022 04:32:25 06/15/19 23 06/15/2022 COMPR EHENS EDNA METAB OLIC PANEL alkaline phosphatase 83 U/L 31-125 normal Not Available [facility] [address] [address] [place], [address], 06/15/2022 04:32:25 06/15/19 23 06/15/2022 COMPR EHENS EDNA METAB OLIC PANEL AST 16 U/L 10-35 normal Not Available [facility] [address] [address] [place], [address], 06/15/2022 04:32:25 06/15/19 23 06/15/2022 COMPR EHENS EDNA METAB OLIC PANEL ALT 14 U/L 6-29 normal Not Available [facility] [address] [address] [place], [address], 06/15/2022 04:32:25 06/15/19 23 06/15/2022 HEMOG LOBIN A1C hemoglobin A1C 4.7 %_of_ total _HGB <5.7 normal For the purpo se of scree vibha for the prese nce of diabe tish: <5.7% Consi stent with the absen ce of diabe tish 5.7-6 .4% Consi stent with incre ased risk for diabe tish (pred iabet es) > or =6.5% Consi stent with diabe tish This assay resul t is consi stent with a decre ased risk of diabe tish. Curre ntly, no conse nsus exist s laura abdullahi use of hemog lobin A1c for diagn osis of diabe tish in child eleni. Accor ding to Ameri can Diabe tish Assoc iatio n (ADA) guide lines , hemog lobin A1c <7.0% repre sents optim al contr ol in non-p regna nt diabe tic patie nts. Diffe rent metri cs may apply to speci fic patie nt popul ation s. Stand ards of Medic al Care in Diabe tish(A DA). Not Available [facility] [address] [address] [place], [address], 06/15/2022 04:32:26 06/15/19 23 06/15/2022 T3, FREE T3, free 2.5 pg/mL 2.3-4. 2 normal Not Available [address], [address], 06/15/2022 04:32:26 06/15/19 23 06/15/2022 CBC (INCL UDES DIFF/ PLT) white blood cell count 6.2 thous and/u L 3.8-10 .8 normal Not Available [address], [address], 06/15/2022 04:32:27 06/15/19 23 06/15/2022 CBC (INCL UDES DIFF/ PLT) red blood cell count 4.24 tracey on/uL 3.80-5 .10 normal Not Available [address], [address], 06/15/2022 04:32:27 06/15/19 23 06/15/2022 CBC (INCL UDES DIFF/ PLT) hemoglobin 13.3 g/dL 11.7-1 5.5 normal Not Available [address], [address], 06/15/2022 04:32:27 06/15/1906/15/2022 CBC (INCL UDES DIFF/ PLT) hematocrit 40.6 % 35.0-4 5.0 normal Not Available [address], [address], 06/15/2022 04:32:27 06/15/19 23 06/15/2022 CBC (INCL UDES DIFF/ PLT) MCV 95.8 fL 80.0-1 00.0 normal Not Available [address], [address], 06/15/2022 04:32:27 04/17/06/15/2022 CBC (INCL UDES DIFF/ PLT) MCH 31.4 pg 27.0-3 3.0 normal Not Available [address], [address], 06/15/2022 04:32:27 06/15/19 23 06/15/2022 CBC (INCL UDES DIFF/ PLT) MCHC 32.8 g/dL 32.0-3 6.0 normal Not Available [address], [address], 06/15/2022 04:32:27 06/15/19 23 06/15/2022 CBC (INCL UDES DIFF/ PLT) RDW 14.4 % 11.0-1 5.0 normal Not Available [address], [address], 06/15/2022 04:32:27 06/15/19 23 06/15/2022 CBC (INCL UDES DIFF/ PLT) platelet count 264 thous and/u L 140-40 0 normal Not Available [address], [address], 06/15/2022 04:32:27 06/15/19 23 06/15/2022 CBC (INCL UDES DIFF/ PLT) MPV 10.7 fL 7.5-12 .5 normal Not Available [address], [address], 06/15/2022 04:32:27 06/15/19 23 06/15/2022 CBC (INCL UDES DIFF/ PLT) absolute neutrophils 3360 cells /uL 1500-7 800 normal Not Available [address], [address], 06/15/2022 04:32:27 06/15/19 23 06/15/2022 CBC (INCL UDES DIFF/ PLT) absolute lymphocytes 2127 cells /uL 850-39 00 normal Not Available [address] [place], [address], 06/15/2022 04:32:27 06/15/19 23 06/15/2022 CBC (INCL UDES DIFF/ PLT) absolute monocytes 546 cells /uL 200-95 0 normal Not Available [facility] [address], [address], 06/15/2022 04:32:27 06/15/19 23 06/15/2022 CBC (INCL UDES DIFF/ PLT) absolute eosinophils 99 cells /uL 15-500 normal Not Available [facility] [address], [address], 06/15/2022 04:32:27 06/15/19 23 06/15/2022 CBC (INCL UDES DIFF/ PLT) absolute basophils 68 cells /uL 0-200 normal Not Available [facility] [address], [address], 06/15/2022 04:32:27 06/15/19 23 06/15/2022 CBC (INCL UDES DIFF/ PLT) neutrophils 54.2 % normal Not Available [address], [address], 06/15/2022 04:32:27 06/15/19 23 06/15/2022 CBC (INCL UDES DIFF/ PLT) lymphocytes 34.3 % normal Not Available [address], [address], 06/15/2022 04:32:27 06/15/19 23 06/15/2022 CBC (INCL UDES DIFF/ PLT) monocytes 8.8 % normal Not Available [address], [address], 06/15/2022 04:32:27 06/15/19 23 06/15/2022 CBC (INCL UDES DIFF/ PLT) eosinophils 1.6 % normal Not Available [address], [address], 06/15/2022 04:32:27 06/15/19 23 06/15/2022 CBC (INCL UDES DIFF/ PLT) basophils 1.1 % normal Not Available [address], [address], 06/15/2022 04:32:27 06/15/19 23 06/15/2022 URINA LYSIS , COMPL ETE W/REF MADDISON TO CULTU RE color YELLOW yellow normal Not Available [address], [address], 06/15/2022 04:32:27 06/15/19 23 06/15/2022 URINA LYSIS , COMPL ETE W/REF MADDISON TO CULTU RE appearance CLEAR clear normal Not Available [address], [address], 06/15/2022 04:32:27 06/15/19 23 06/15/2022 URINA LYSIS , COMPL ETE W/REF MADDISON TO CULTU RE specific gravity 1.016 1.001- 1.035 normal Not Available [address], [address], 06/15/2022 04:32:27 06/15/19 23 06/15/2022 URINA LYSIS , COMPL ETE W/REF MADDISON TO CULTU RE pH 7.0 5.0-8. 0 normal Not Available [address], [address], 06/15/2022 04:32:27 06/15/19 23 06/15/2022 URINA LYSIS , COMPL ETE W/REF MADDISON TO CULTU RE glucose NEGATI VE negati ve normal Not Available [address], [address], 06/15/2022 04:32:27 06/15/19 23 06/15/2022 URINA LYSIS , COMPL ETE W/REF MADDISON TO CULTU RE bilirubin NEGATI VE negati ve normal Not Available [address], [address], 06/15/2022 04:32:27 06/15/19 23 06/15/2022 URINA LYSIS , COMPL ETE W/REF MADDISON TO CULTU RE ketones NEGATI VE negati ve normal Not Available [facility] [address], [address], 06/15/2022 04:32:27 06/15/19 23 06/15/2022 URINA LYSIS , COMPL ETE W/REF MADDISON TO CULTU RE occult blood NEGATI VE negati ve normal Not Available [address], [address], 06/15/2022 04:32:27 06/15/19 23 06/15/2022 URINA LYSIS , COMPL ETE W/REF MADDISON TO CULTU RE protein NEGATI VE negati ve normal Not Available [address], [address], 06/15/2022 04:32:27 06/15/19 23 06/15/2022 URINA LYSIS , COMPL ETE W/REF MADDISON TO CULTU RE nitrite NEGATI VE negati ve normal Not Available [facility] [address], [address], 06/15/2022 04:32:27 06/15/19 23 06/15/2022 URINA LYSIS , COMPL ETE W/REF MADDISON TO CULTU RE leukocyte esterase NEGATI VE negati ve normal Not Available [facility] [address], [address], 06/15/2022 04:32:27 06/15/19 23 06/15/2022 URINA LYSIS , COMPL ETE W/REF MADDISON TO CULTU RE WBC NONE SEEN /hpf < or = 5 normal Not Available [address], [address], 06/15/2022 04:32:27 06/15/19 23 06/15/2022 URINA LYSIS , COMPL ETE W/REF MADDISON TO CULTU RE RBC 0-2 /hpf < or = 2 normal Not Available [address], [address], 06/15/2022 04:32:27 06/15/19 23 06/15/2022 URINA LYSIS , COMPL ETE W/REF MADDISON TO CULTU RE squamous epithelial cells 6-10 /hpf < or = 5 abnormal Not Available [address], [address], 06/15/2022 04:32:27 06/15/19 23 06/15/2022 URINA LYSIS , COMPL ETE W/REF MADDISON TO CULTU RE bacteria NONE SEEN /hpf none seen normal Not Available [address], [address], 06/15/2022 04:32:27 06/15/19 23 06/15/2022 URINA LYSIS , COMPL ETE W/REF MADDISON TO CULTU RE hyaline cast NONE SEEN /lpf none seen normal Not Available [address], [address], 06/15/2022 04:32:27 06/15/19 23 06/15/2022 URINA LYSIS , COMPL ETE W/REF MADDISON TO CULTU RE note This urine was joann zed for the prese nce of WBC, RBC, bacte marlee, casts , and other forme d eleme nts. Only those eleme nts seen were repor yves. Not Available [address], [address], 06/15/2022 04:32:27 06/15/19 23 06/15/2022 REFLE XIVE URINE CULTU RE reflexive urine culture NO CULTU RE INDIC ATED Not Available [address], [address], 06/15/2022 04:32:28 06/15/19 23 06/15/2022 VITAM IN B12/F OLATE , SERUM PANEL vitamin B12 811 pg/mL 200-11 00 normal Not Available [address], [address], 06/15/2022 04:32:29 06/15/1906/15/2022 VITAM IN B12/F OLATE , SERUM PANEL folate, serum 15.5 NG/mL normal Refer ence Range Low: <3.4 Borde rline : 3.4-5 .4 Steph l: >5.4 Not Available [address], [address], 06/15/2022 04:32:29 12/12/1912/13/2022 TSH+F REE T4 TSH 3.48 mIU/L normal Refer ence Range > or = 20 Years 0.40- 4.50 Pregn mahendra Range s First trime ster 0.26- 2.66 Secon d trime ster 0.55- 2.73 Third trime ster 0.43- 2.91 Not Available [address], [address], 12/13/2022 15:45:06 12/12/1912/13/2022 TSH+F REE T4 T4, free 1.0 NG/dL 0.8-1. 8 normal Not Available [address], [address], 12/13/2022 15:45:06 12/12/19 23 12/13/2022 LIPID PANEL WITH RATIO S cholesterol, total 176 mg/dL <200 normal Not Available [address], [address], 12/13/2022 15:45:08 12/12/19 23 12/13/2022 LIPID PANEL WITH RATIO S HDL cholesterol 49 mg/dL > or = 50 low Not Available [address] [address] [place], [address], 12/13/2022 15:45:08 12/12/1912/13/2022 LIPID PANEL WITH RATIO S triglyceride s 85 mg/dL <150 normal Not Available [address] [address] [place], [address], 12/13/2022 15:45:08 12/12/1912/13/2022 LIPID PANEL WITH RATIO S LDL-choleste rol 109 mg/dL _(david c) high Refer ence range : <100 Andrew able range <100 mg/dL for prima ry preve ntion ; <70 mg/dL for patie nts with CHD or diabe tic patie nts with > or = 2 CHD risk facto rs. LDL-C is now calcu lated using the Esther n-Hop kins calcu jaden n, which is a valid ated novel kourtney viera r accur acy than the Fried seb equat ion in the estim ation of LDL-C . Esther mccord SS et al. KARTHIK. 2013; 310(1 9): 2061- 2068 (http ://ed ucati on.Usha [employer] com/f aq/FA Q164) Not Available [address] [address] [place], [address], 12/13/2022 15:45:08 12/12/1912/13/2022 LIPID PANEL WITH RATIO S chol/HDLC ratio 3.6 (calc ) <5.0 normal Not Available [address] [address] [place], [address], 12/13/2022 15:45:08 12/12/1912/13/2022 LIPID PANEL WITH RATIO S LDL/HDL ratio 2.2 (calc ) Below avera ge Risk: <2.34 [place] ge Risk: 2.35- 4.12 Moder ate Risk: 4.13- 5.56 High Risk: >5.57 Not Available [address] [address] [place], [address], 12/13/2022 15:45:08 12/12/1912/13/2022 LIPID PANEL WITH RATIO S non HDL cholesterol 127 mg/dL _(david c) <130 normal For patie nts with diabe tish plus 1 major ASCVD risk facto r, treat ing to a non-H DL-C goal of <100 mg/dL (LDL- C of <70 mg/dL ) is consi dered a thera peuti c optio n. Not Available [address] [address] [place], [address], 12/13/2022 15:45:08 12/12/1912/13/2022 COMPR EHENS EDNA METAB OLIC PANEL glucose 76 mg/dL 65-99 normal Fasti ng refer ence inter amanda Not Available [address] [address] [place], [address], 12/13/2022 15:45:09 12/12/1912/13/2022 COMPR EHENS EDNA METAB OLIC PANEL urea nitrogen (BUN) 11 mg/dL 7-25 normal Not Available [address], [address], 12/13/2022 15:45:09 12/12/1912/13/2022 COMPR EHENS EDNA METAB OLIC PANEL creatinine 0.68 mg/dL 0.50-0 .99 normal Not Available [address] [address] [place], [address], 12/13/2022 15:45:09 12/12/1912/13/2022 COMPR EHENS EDNA METAB OLIC PANEL eGFR 108 mL/mi n/1.7 3m2 > or = 60 normal Not Available [address] [address] [place], [address], 12/13/2022 15:45:09 12/12/1912/13/2022 COMPR EHENS EDNA METAB OLIC PANEL BUN/creatini ne ratio SEE NOTE: (calc ) 6-22 Not Repor yves: BUN and Creat inine are withi n refer ence range . Not Available [address], [address], 12/13/2022 15:45:09 12/12/1912/13/2022 COMPR EHENS EDNA METAB OLIC PANEL sodium 138 mmol/ L 135-14 6 normal Not Available [address], [address], 12/13/2022 15:45:09 12/12/1912/13/2022 COMPR EHENS EDNA METAB OLIC PANEL potassium 4.2 mmol/ L 3.5-5. 3 normal Not Available [address], [address], 12/13/2022 15:45:09 12/12/1912/13/2022 COMPR EHENS EDNA METAB OLIC PANEL chloride 106 mmol/ L 98-110 normal Not Available [address], [address], 12/13/2022 15:45:09 12/12/1912/13/2022 COMPR EHENS EDNA METAB OLIC PANEL carbon dioxide 26 mmol/ L 20-32 normal Not Available [address], [address], 12/13/2022 15:45:09 12/12/1912/13/2022 COMPR EHENS EDNA METAB OLIC PANEL calcium 9.0 mg/dL 8.6-10 .2 normal Not Available [address], [address], 12/13/2022 15:45:09 12/12/19 23 12/13/2022 COMPR EHENS EDNA METAB OLIC PANEL protein, total 6.6 g/dL 6.1-8. 1 normal Not Available [address], [address], 12/13/2022 15:45:09 12/12/1912/13/2022 COMPR EHENS EDNA METAB OLIC PANEL albumin 3.9 g/dL 3.6-5. 1 normal Not Available [address], [address], 12/13/2022 15:45:09 12/12/1912/13/2022 COMPR EHENS EDNA METAB OLIC PANEL globulin 2.7 g/dL_ (calc ) 1.9-3. 7 normal Not Available [address], [address], 12/13/2022 15:45:09 12/12/1912/13/2022 COMPR EHENS EDNA METAB OLIC PANEL albumin/glob ulin ratio 1.4 (calc ) 1.0-2. 5 normal Not Available [address], [address], 12/13/2022 15:45:09 12/12/1912/13/2022 COMPR EHENS EDNA METAB OLIC PANEL bilirubin, total 0.4 mg/dL 0.2-1. 2 normal Not Available [address], [address], 12/13/2022 15:45:09 12/12/1912/13/2022 COMPR EHENS EDNA METAB OLIC PANEL alkaline phosphatase 66 U/L 31-125 normal Not Available [address] [address] [place], [address], 12/13/2022 15:45:09 12/12/1912/13/2022 COMPR EHENS EDNA METAB OLIC PANEL AST 14 U/L 10-35 normal Not Available [address], [address], 12/13/2022 15:45:09 12/12/1912/13/2022 COMPR EHENS EDNA METAB OLIC PANEL ALT 18 U/L 6-29 normal Not Available [address], [address], 12/13/2022 15:45:09 12/12/19 23 12/13/2022 T3, FREE T3, free 2.9 pg/mL 2.3-4. 2 normal Not Available [address], [address], 12/13/2022 15:45:10 07/22/19 24 07/23/2023 IRON, TIBC AND MONY TIN PANEL iron, total 64 mcg/d L 40-190 normal Not Available [address], [address], 07/23/2023 11:51:38 07/22/19 24 07/23/2023 IRON, TIBC AND MONY TIN PANEL iron binding capacity 357 mcg/d L_(ca lc) 250-45 0 normal Not Available [address], [address], 07/23/2023 11:51:38 07/22/19 24 07/23/2023 IRON, TIBC AND MONY TIN PANEL % saturation 18 %_(ca lc) 16-45 normal Not Available [address], [address], 07/23/2023 11:51:38 07/22/19 24 07/23/2023 IRON, TIBC AND MONY TIN PANEL ferritin 21 NG/mL 16-232 normal Not Available [address], [address], 07/23/2023 11:51:38 07/22/19 24 07/23/2023 TSH+F REE T4 TSH 0.93 mIU/L normal Refer ence Range > or = 20 Years 0.40- 4.50 Pregn mahendra Range s First trime ster 0.26- 2.66 Secon d trime ster 0.55- 2.73 Third trime ster 0.43- 2.91 Not Available [address], [address], 07/23/2023 11:51:40 07/22/19 24 07/23/2023 TSH+F REE T4 T4, free 1.8 NG/dL 0.8-1. 8 normal Not Available [address], [address], 07/23/2023 11:51:40 07/22/1907/23/2023 LIPID PANEL WITH RATIO S cholesterol, total 191 mg/dL <200 normal Not Available [address], [address], 07/23/2023 11:51:41 07/22/19 24 07/23/2023 LIPID PANEL WITH RATIO S HDL cholesterol 60 mg/dL > or = 50 normal Not Available [address], [address], 07/23/2023 11:51:41 07/22/19 24 07/23/2023 LIPID PANEL WITH RATIO S triglyceride s 58 mg/dL <150 normal Not Available [address], [address], 07/23/2023 11:51:41 07/22/19 24 07/23/2023 LIPID PANEL WITH RATIO S LDL-choleste rol 117 mg/dL _(david c) high Refer ence range : <100 Andrew able range <100 mg/dL for prima ry preve ntion ; <70 mg/dL for patie nts with CHD or diabe tic patie nts with > or = 2 CHD risk facto rs. LDL-C is now calcu lated using the Esther n-Hop kins calcu lataj n, which is a valid ated novel metho d julio viera r accur acsoco than the Fried seb equat ion in the estim ation of LDL-C . Esther n SS et al. KARTHIK. 2013; 310(1 1): 2061- 2068 (http ://ed ucati on.[employer] [employer] com/f aq/FA Q164) Not Available [address] [address] [place], [address], 07/23/2023 11:51:41 07/22/1907/23/2023 LIPID PANEL WITH RATIO S chol/HDLC ratio 3.2 (calc ) <5.0 normal Not Available [facility] [address] [address] [place], [address], 07/23/2023 11:51:41 07/22/19 24 07/23/2023 LIPID PANEL WITH RATIO S LDL/HDL ratio 2.0 (calc ) Below avera ge Risk: <2.34 [place] ge Risk: 2.35- 4.12 Moder ate Risk: 4.13- 5.56 High Risk: >5.57 Not Available [address] [address] [facility] [place], [address], 07/23/2023 11:51:41 07/22/1907/23/2023 LIPID PANEL WITH RATIO S non HDL cholesterol 131 mg/dL _(david c) <130 high For patie nts with diabe tish plus 1 major ASCVD risk facto r, treat ing to a non-H DL-C goal of <100 mg/dL (LDL- C of <70 mg/dL ) is consi dered a thera peuti c optio n. Not Available [facility] [address] [address] [place], [address], 07/23/2023 11:51:41 07/22/1907/23/2023 COMPR EHENS EDNA METAB OLIC PANEL glucose 77 mg/dL 65-99 normal Fasti ng refer ence inter amanda Not Available [facility] [address] [address] [place], [address], 07/23/2023 11:51:42 07/22/19 24 07/23/2023 COMPR EHENS EDNA METAB OLIC PANEL urea nitrogen (BUN) 18 mg/dL 7-25 normal Not Available [address], [address], 07/23/2023 11:51:42 07/22/19 24 07/23/2023 COMPR EHENS EDNA METAB OLIC PANEL creatinine 0.88 mg/dL 0.50-0 .99 normal Not Available [address], [address], 07/23/2023 11:51:42 07/22/19 24 07/23/2023 COMPR EHENS EDNA METAB OLIC PANEL eGFR 81 mL/mi n/1.7 3m2 > or = 60 normal Not Available [address], [address], 07/23/2023 11:51:42 07/22/19 24 07/23/2023 COMPR EHENS EDNA METAB OLIC PANEL BUN/creatini ne ratio SEE NOTE: (calc ) 6-22 Not Repor yves: BUN and Creat inine are withi n refer ence range . Not Available [address], [address], 07/23/2023 11:51:42 07/22/19 24 07/23/2023 COMPR EHENS EDNA METAB OLIC PANEL sodium 139 mmol/ L 135-14 6 normal Not Available [address], [address], 07/23/2023 11:51:42 07/22/19 24 07/23/2023 COMPR EHENS EDNA METAB OLIC PANEL potassium 4.9 mmol/ L 3.5-5. 3 normal Not Available [address], [address], 07/23/2023 11:51:42 07/22/19 24 07/23/2023 COMPR EHENS EDNA METAB OLIC PANEL chloride 103 mmol/ L 98-110 normal Not Available [address], [address], 07/23/2023 11:51:42 07/22/19 24 07/23/2023 COMPR EHENS EDNA METAB OLIC PANEL carbon dioxide 29 mmol/ L 20-32 normal Not Available [address], [address], 07/23/2023 11:51:42 07/22/19 24 07/23/2023 COMPR EHENS EDNA METAB OLIC PANEL calcium 9.8 mg/dL 8.6-10 .2 normal Not Available [address], [address], 07/23/2023 11:51:42 07/22/19 24 07/23/2023 COMPR EHENS EDNA METAB OLIC PANEL protein, total 7.3 g/dL 6.1-8. 1 normal Not Available [address], [address], 07/23/2023 11:51:42 07/22/19 24 07/23/2023 COMPR EHENS EDNA METAB OLIC PANEL albumin 4.3 g/dL 3.6-5. 1 normal Not Available [address], [address], 07/23/2023 11:51:42 07/22/19 24 07/23/2023 COMPR EHENS EDNA METAB OLIC PANEL globulin 3.0 g/dL_ (calc ) 1.9-3. 7 normal Not Available [address], [address], 07/23/2023 11:51:42 07/22/19 24 07/23/2023 COMPR EHENS EDNA METAB OLIC PANEL albumin/glob ulin ratio 1.4 (calc ) 1.0-2. 5 normal Not Available [address], [address], 07/23/2023 11:51:42 07/22/19 24 07/23/2023 COMPR EHENS EDNA METAB OLIC PANEL bilirubin, total 0.6 mg/dL 0.2-1. 2 normal Not Available [address] [address] [place], [address], 07/23/2023 11:51:42 07/22/19 24 07/23/2023 COMPR EHENS EDNA METAB OLIC PANEL alkaline phosphatase 58 U/L 31-125 normal Not Available [facility] [address] [address] [place], [address], 07/23/2023 11:51:42 07/22/19 24 07/23/2023 COMPR EHENS EDNA METAB OLIC PANEL AST 13 U/L 10-35 normal Not Available [address], [address], 07/23/2023 11:51:42 07/22/19 24 07/23/2023 COMPR EHENS EDNA METAB OLIC PANEL ALT 9 U/L 6-29 normal Not Available [address], [address], 07/23/2023 11:51:42 07/22/19 24 07/23/2023 HEMOG LOBIN A1C hemoglobin A1C 5.4 %_of_ total _HGB <5.7 normal For the purpo se of screnyla dunne for the prese nce of diabe tish: <5.7% Consi stent with the absen ce of diabe tish 5.7-6 .4% Consi stent with incre ased risk for diabe tish (pred iabet es) > or =6.5% Consi stent with diabe tish This assay resul t is consi stent with a decre ased risk of diabe tish. Curre ntly, no conse nsus exist vinny abdullahi use of hemog lobin A1c for diagn osis of diabe tish in child eleni. Accor ding to Ameri can Diabe tish Assoc iatio n (ADA) guide lines , hemog lobin A1c <7.0% repre sents optim al contr ol in non-p regna nt diabe tic patie nts. Diffe rent metri cs may apply to speci fic patie nt popul ation s. Stand ards of Medic al Care in Diabe tish(A DA). This test was perfo rmed on the [facility] c503 platf orm. Effec tive , a roman e in test platf orms from the [facility] to the [facility]il [facility]ers c503 may have shift ed HbA1c resul ts baljeet red to histo rical resul ts. Based on labor atory valid ation testi ng condu cted at [facility] , the [facility]ahlil platf orm relat edna to the [facility] platf orm had an avera ge incre ase in HbA1c value of < or = 0.3%. This diffe rence is withi n accep yves varia bilit y estab lishe d by the [employer] [employer] hemog lobin Stand ardiz ation Progr am. Note that not all indiv idual s will have had a shift in their resul ts and direc t baljeet rison s betwe en histo rical and curre nt resul ts for testi ng condu cted on diffe rent platf orms is not recom gary d. Not Available [facility] [address] [address] [place], [address], 07/23/2023 11:51:43 07/22/19 24 07/23/2023 T3, FREE T3, free 3.0 pg/mL 2.3-4. 2 normal Not Available [facility] [address] [address] [place], [address], 07/23/2023 11:51:44 07/22/19 24 07/23/2023 CBC (INCL UDES DIFF/ PLT) white blood cell count 4.4 thous and/u L 3.8-10 .8 normal Not Available [facility] [address] [address] [place], [address], 07/23/2023 11:51:45 07/22/19 24 07/23/2023 CBC (INCL UDES DIFF/ PLT) red blood cell count 4.33 tracey on/uL 3.80-5 .10 normal Not Available [address], [address], 07/23/2023 11:51:45 07/22/19 24 07/23/2023 CBC (INCL UDES DIFF/ PLT) hemoglobin 13.3 g/dL 11.7-1 5.5 normal Not Available [address], [address], 07/23/2023 11:51:45 07/22/19 24 07/23/2023 CBC (INCL UDES DIFF/ PLT) hematocrit 41.0 % 35.0-4 5.0 normal Not Available [address], [address], 07/23/2023 11:51:45 07/22/19 24 07/23/2023 CBC (INCL UDES DIFF/ PLT) MCV 94.7 fL 80.0-1 00.0 normal Not Available [address], [address], 07/23/2023 11:51:45 07/22/1907/23/2023 CBC (INCL UDES DIFF/ PLT) MCH 30.7 pg 27.0-3 3.0 normal Not Available [address], [address], 07/23/2023 11:51:45 07/22/19 24 07/23/2023 CBC (INCL UDES DIFF/ PLT) MCHC 32.4 g/dL 32.0-3 6.0 normal Not Available [address], [address], 07/23/2023 11:51:45 07/22/19 24 07/23/2023 CBC (INCL UDES DIFF/ PLT) RDW 13.6 % 11.0-1 5.0 normal Not Available [address], [address], 07/23/2023 11:51:45 07/22/19 24 07/23/2023 CBC (INCL UDES DIFF/ PLT) platelet count 245 thous and/u L 140-40 0 normal Not Available [address], [address], 07/23/2023 11:51:45 07/22/19 24 07/23/2023 CBC (INCL UDES DIFF/ PLT) MPV 11.5 fL 7.5-12 .5 normal Not Available [address], [address], 07/23/2023 11:51:45 07/22/19 24 07/23/2023 CBC (INCL UDES DIFF/ PLT) absolute neutrophils 2257 cells /uL 1500-7 800 normal Not Available [address], [address], 07/23/2023 11:51:45 07/22/19 24 07/23/2023 CBC (INCL UDES DIFF/ PLT) absolute lymphocytes 1698 cells /uL 850-39 00 normal Not Available [address], [address], 07/23/2023 11:51:45 07/22/19 24 07/23/2023 CBC (INCL UDES DIFF/ PLT) absolute monocytes 295 cells /uL 200-95 0 normal Not Available [facility] [address], [address], 07/23/2023 11:51:45 07/22/19 24 07/23/2023 CBC (INCL UDES DIFF/ PLT) absolute eosinophils 101 cells /uL 15-500 normal Not Available [facility] [address], [address], 07/23/2023 11:51:45 07/22/19 24 07/23/2023 CBC (INCL UDES DIFF/ PLT) absolute basophils 48 cells /uL 0-200 normal Not Available [address], [address], 07/23/2023 11:51:45 07/22/19 24 07/23/2023 CBC (INCL UDES DIFF/ PLT) neutrophils 51.3 % normal Not Available [facility] [address], [address], 07/23/2023 11:51:45 07/22/19 24 07/23/2023 CBC (INCL UDES DIFF/ PLT) lymphocytes 38.6 % normal Not Available [address], [address], 07/23/2023 11:51:45 07/22/19 24 07/23/2023 CBC (INCL UDES DIFF/ PLT) monocytes 6.7 % normal Not Available [address], [address], 07/23/2023 11:51:45 07/22/19 24 07/23/2023 CBC (INCL UDES DIFF/ PLT) eosinophils 2.3 % normal Not Available [address], [address], 07/23/2023 11:51:45 07/22/19 24 07/23/2023 CBC (INCL UDES DIFF/ PLT) basophils 1.1 % normal Not Available [address], [address], 07/23/2023 11:51:45 06/18/19 21 06/17/2020 XR, knee No observ ation record ed. [id number] Not Available 04/28/2022 18:35:14 08/15/19 21 08/14/2020 MAMMO , diagn ostic , bilat eral No observ ation record ed. MIGRATION. Not Available 04/28/2022 18:35:14 08/15/19 21 08/14/2020 XR, foot No observ ation record ed. MIGRATION. [facility] ([facility]) [address] [place], [address], 04/28/2022 18:35:14 08/27/19 21 08/26/2020 XR, ankle No observ ation record ed. MIGRATION. [facility] ([facility]) [address] [place], [address], 04/28/2022 18:35:14 07/15/19 22 07/13/2021 XR, knee No observ ation record ed. MIGRATION. Not Available 04/28/2022 18:35:14 09/03/19 22 09/01/2021 XR, knee No observ ation record ed. MIGRATION. [address] [place], [place], [address], 04/28/2022 18:35:14 09/19/19 22 09/17/2021 MRI, knee, w/o contr ast No observ ation record ed. MIGRATION. [facility] [address], [place], [address], 04/28/2022 18:35:14 09/24/19 22 09/23/2021 MAMMO , diagn ostic , digit al, bilat eral No observ ation record ed. MIGRATION. [facility] [address], [place], [address], 04/28/2022 18:35:14 01/28/20 22 12/04/2021 XR, knee No observ ation record ed. MIGRATION. Not Available 04/28/2022 18:35:14 04/30/19 23 04/28/2022 CT, abdom en + pelvi s, w/o contr ast No observ ation record ed. [email or web address] [address], [place], [address], 06/21/2022 10:43:11 08/17/19 23 08/13/2022 MAMMO , deepake vibha, digit al, bilat eral No observ ation record ed. [email or web address] Not Available 2022 18:21:38 12/03/19 23 12/02/2022 XR, chest , 2 view No observ ation record ed. [email or web address] [facility] [address], [place], [address], 12/06/2022 09:41:24 Result Notes None recorded. Problems Name Problem SNOMED Code Status Onset Date Resolution Date Notes Provider Name and Address Organization Details Recorded Time Anti-nucle ar factor detected 902791085 Active Not Available [facility] 3 18:34:20 Mammograph y abnormal 291198321 Active 2021 Not Available [facility] 3 18:34:20 Hypothyroi dism due to Yajaira' s thyroiditi s 600725083 Active Not Available [facility] 3 18:34:20 Seronegati ve rheumatoid arthritis 082894304 Active 2020 Not Available [facility] 3 18:34:20 Acute urinary tract infection 656099623 Active 2022 Not Available [facility] 3 18:34:20 Pain of left knee joint 7091686336984 07 Active 2021 Not Available [facility] 3 18:34:20 Anxiety 02044883 Active 2021 Not Available [facility] 3 18:34:21 Hyperlipid emia 62092836 Active 2021 FADUMO Auguste, [place] - S [place] [employer] [facility] 3 11:16:17 Pain of joint 88758756 Active Not Available [facility] 3 18:34:21 Swelling 89366733 Active Not Available [facility] 3 18:34:21 Candidiasi s of vagina 67458348 Active 2021 Not Available [facility] 3 18:34:21 Fatigue 81163282 Active Not Available [facility] 3 18:34:21 Iron deficiency anemia 70114291 Active Not Available [facility] 3 18:34:21 Nausea 058162221 Active 2022 HANNAH Rodriguez [address] [facility], [facility] [address], [place], [address] , [employer] 3 13:24:41 Cough 81153852 Active 2022 HANNAH Rodriguez [address] [facility], [place], [address] , [employer] 3 12:55:33 COVID-19 240034072 Active 2022 HANNAH oRdriguez [address] [facility], [place], [address] , [employer] 3 15:23:28 Problem Notes None recorded. Procedures Surgical History Date Name Laterality Status Provider Name and Address Organization Details Recorded Time 08/19/19 17 Date of Last Colonoscopy completed Not Available [facility] 04/28/2022 18:33:56 02/28/19 08 section completed Not Available [facility] 04/28/2022 18:33:56 02/28/18 96 section completed Not Available [facility] 04/28/2022 18:33:56 02/28/18 91 ENT Surgery completed Not Available [facility] 04/29/19 23 18:33:56 02/28/18 80 Kidney/Bladder Surgery completed Not Available [facility] 04/28/2022 18:33:56 ENT Surgery completed Not Available [facility] 04/28/2022 18:33:56 Imaging Results Imaging Date Name Status LastModified by Organiz ation Details LastModified Time 07/13/2021 XR, knee completed [id number] Information not available 04/28/2022 18:35:14 06/17/2020 XR, knee completed [id number] Information not available 04/28/2022 18:35:14 08/14/2020 MAMMO, diagnostic, bilateral completed [id number] Information not available 04/28/2022 18:35:14 08/14/2020 XR, foot completed [id number] [facility] ([facility]) [address] [place], [address], 04/28/2022 18:35:14 08/26/2020 XR, ankle completed [id number] [facility] ([facility]) [address] [place], [address], 04/28/2022 18:35:14 12/04/2021 XR, knee completed [id number] Information not available 04/28/2022 18:35:14 09/23/2021 MAMMO, diagnostic, digital, bilateral completed [id number] [facility] [address], [place], [address], 04/28/2022 18:35:14 09/17/2021 MRI, knee, w/o contrast completed [id number] [facility] [address], [place], [address], 04/28/2022 18:35:14 09/01/2021 XR, knee completed [id number] [facility], [place], [address], 04/28/2022 18:35:14 04/28/2022 CT, abdomen + pelvis, w/o contrast completed [email or web address] [address] [facility], [place], [address], 06/21/2022 10:43:11 08/13/2022 MAMMO, screening, digital, bilateral completed [email or web address] Information not available 11/16/2022 18:21:38 12/02/2022 XR, chest, 2 view completed [email or web address] [address], [address], 12/06/2022 09:41:24 Procedure Notes None recorded. Medical Equipment None Reported. Allergies Allergen ID Allergen Name Allergen Category Reaction Reaction Severity Criticality Documentation Date Start Date Code Code System Note Provider Name and Address Organization Details Recorded Time 48685 Levaquin medicatio n hives Not available Not available 04/28/2022 98504 2 RxNorm Not Available [facility] 3 18:35:13 [address]291 Cipro medicatio n anaphylax is Not available Not available 04/28/2022 74033 3 RxNorm Not Available [facility] 3 18:35:13 Medications Name Sig Start Date Stop Date Status Note LastModified by Organization Details LastModified Time Xanax 0.5 mg tablet Take 1 tablet twice a day by oral route. 06/18 completed Not Available Not Available Not Available potassium chloride ER 10 mEq capsule,ext ended release Take 1 capsule every day by oral route in the morning. active Not Available Not Available No t Available prednisone 10 mg tablet TAKE 2 TABLETS BY MOUTH ONCE DAILY FOR 7 DAYS, THEN 1 TABLET DAILY FOR 7 DAYS 12/18 completed Not Available Not Available Not Available sulfasalazi ne 500 mg tablet TAKE 3 TABLETS BY MOUTH TWICE DAILY 12/13 completed Not Available Not Available Not Available clindamycin HCl 300 mg capsule 03/08 completed Not Available Not Available Not Available hydrocodone 5 mg-acetamin ophen 325 mg tablet TAKE 1 TABLET BY MOUTH TWICE DAILY NEEDED FOR PAIN 12/18 completed Not Available Not Available Not Available meloxicam 15 mg tablet 12/11 completed Not Available Not Available Not Available famotidine 40 mg tablet 03/08 completed Not Available Not Available Not Available prednisone 5 mg tablet TAKE 4 TABLETS BY MOUTH ONCE DAILY FOR 7 DAYS THEN 3 ONCE DAILY FOR 7 DAYS THEN 2 ONCE DAILY FOR 7 DAYS THEN 1 ONCE DAILY FOR 7 DAYS 12/18 completed Not Available Not Available Not Available Diflucan 150 mg tablet take one tab po as directed. may repeat another day if needed 06/18 completed Not Available Not Available Not Available sulfamethox azole 800 mg-trimetho prim 160 mg tablet TAKE 1 TABLET BY MOUTH EVERY 12 HOURS 06/18 completed Not Available Not Available Not Available tramadol 50 mg tablet TAKE 1 TABLET BY MOUTH EVERY 6 HOURS NEEDED 12/05 completed Not Available Not Available Not Available ketorolac 30 mg/mL (1 mL) injection solution Inject 1 mL every 6 hours by intramusc ular route. 06/05 completed [facility]: [address] -00 Not Available Not Available Not Available Euthyrox 100 mcg tablet TAKE 1 TABLET BY MOUTH ONCE DAILY IN THE MORNING active Not Available Not Available No t Available levothyroxi ne 75 mcg tablet Take 1 tablet every day by oral route for 90 days. 03/19 completed Not Available Not Available Not Available meloxicam 7.5 mg tablet TAKE 1 TABLET BY MOUTH TWICE DAILY 07/03 completed Not Available Not Available Not Available amoxicillin 875 mg tablet Take 1 tablet every 12 hours by oral route. 05/25 completed Not Available Not Available Not Available alprazolam 0.25 mg tablet TAKE 1 TABLET BY MOUTH THREE TIMES DAILY NEEDED active Not Available Not Available No t Available methotrexat e sodium 2.5 mg tablet TAKE 8 TABLETS BY MOUTH ONCE A WEEK active Not Available Not Available No t Available phenazopyri dine 100 mg tablet TAKE 1 TABLET BY MOUTH THREE TIMES DAILY NEEDED FOR FOR PAIN 06/18 completed Not Available Not Available Not Available levothyroxi ne 50 mcg tablet 03/08 completed Not Available Not Available Not Available Euthyrox 88 mcg tablet TAKE 1 TABLET BY MOUTH ONCE DAILY active Not Available Not Available No t Available omeprazole 20 mg capsule,del ayed release Take 1 capsule every day by oral route for 30 days. 06/17 completed Not Available Not Available Not Available folic acid 1 mg tablet TAKE 1 TABLET BY MOUTH ONCE DAILY active Not Available Not Available No t Available furosemide 20 mg tablet Take 1 tablet every day by oral route in the morning. 05/27 completed Not Available Not Available Not Available ergocalcife rol (vitamin D2) 1,250 mcg (50,000 unit) capsule weekly 05/27 completed Not Available Not Available Not Available hydroxychlo roquine 200 mg tablet TAKE 1 TABLET BY MOUTH TWICE DAILY 07/03 completed Not Available Not Available Not Available ondansetron 4 mg disintegrat ing tablet DISSOLVE 1 TABLET ON THE TONGUE EVERY 6 HOURS NEEDED 12/13 completed Not Available Not Available Not Available naproxen 500 mg tablet TAKE 1 TABLET BY MOUTH TWICE DAILY NEEDED FOR PAIN 12/18 completed Not Available Not Available Not Available levothyroxi ne 112 mcg tablet TAKE 1 TABLET BY MOUTH ONCE DAILY active Not Available Not Available No t Available amoxicillin 875 mg-tayiu m clavulanate 125 mg tablet TAKE 1 TABLET BY MOUTH EVERY 12 HOURS 06/18 completed Not Available Not Available Not Available iron 325 mg (65 mg iron) tablet Take 1 tablet every day by oral route. 05/27 completed Not Available Not Available Not Available nitrofurant oin monohydrate /macrocryst als 100 mg capsule Take 1 capsule every 12 hours by oral route. 05/26 completed Not Available Not Available Not Available Enbrel SureClick 50 mg/mL (1 mL) subcutaneou s pen injector 07/03 completed Not Available Not Available Not Available Suprep Bowel Prep Kit 17.5 gram-3.13 gram-1.6 gram oral solution 05/27 completed Not Available Not Available Not Available Vitals Date Recorded Body mass index (BMI) Body height Oxygen saturation Oxygen saturation in Arterial blood by Pulse oximetry Heart rate Respiratory rate Body temperature Body weight Systolic blood pressure Diastolic blood pressure Provider Name and Address Organization Details Last Updated DateTime 1 35.3 kg/m2 157.48 cm 98 % 98 % 92 /min 16 /min 98.4 [degF] 24333.3 3 g 108 mm[Hg] 64 mm[Hg] Not Available [facility] 3 18:34:02 Date Recorded Body mass index (BMI) Body height Oxygen saturation Oxygen saturation in Arterial blood by Pulse oximetry Heart rate Respiratory rate Body temperature Body weight Systolic blood pressure Diastolic blood pressure Provider Name and Address Organization Details Last Updated DateTime 2 32.8 kg/m2 157.48 cm 98 % 98 % 99 /min 16 /min 97.6 [degF] 89701.4 7 g 128 mm[Hg] 88 mm[Hg] Not Available [facility] 3 18:34:02 Date Recorded Body mass index (BMI) Body height Oxygen saturation Oxygen saturation in Arterial blood by Pulse oximetry Heart rate Respiratory rate Body temperature Body weight Systolic blood pressure Diastolic blood pressure Provider Name and Address Organization Details Last Updated DateTime 2 33.1 kg/m2 157.48 cm 98 % 98 % 95 /min 16 /min 97.3 [degF] 52801.2 2 g 120 mm[Hg] 80 mm[Hg] Not Available [facility] 3 18:34:02 Date Recorded Body height Body mass index (BMI) Body weight Respiratory rate Oxygen saturation Oxygen saturation in Arterial blood by Pulse oximetry Heart rate Systolic blood pressure Diastolic blood pressure Provider Name and Address Organization Details Last Updated DateTime 3 157.48 cm 32.3 kg/m2 21489.0 5 g 16 /min 98 % 98 % 94 /min 128 mm[Hg] 80 mm[Hg] FADUMO Auguste [facility] 3 10:20:53 Date Recorded Body height Body temperature Body mass index (BMI) Body weight Respiratory rate Oxygen saturation Oxygen saturation in Arterial blood by Pulse oximetry Heart rate Systolic blood pressure Diastolic blood pressure Provider Name and Address Organization Details Last Updated DateTime 3 157.48 cm 97.8 [degF] 28.9 kg/m2 86667.5 9 g 16 /min 99 % 99 % 78 /min 122 mm[Hg] 80 mm[Hg] FADUMO Auguste [employer] 3 14:59:37 Date Recorded Systolic blood pressure Diastolic blood pressure Provider Name and Address Organization Details Last Updated DateTime 12/13/2022 110 mm[Hg] 80 mm[Hg] HANNAH Rodriguez [address] [facility] [address], [place], [address], [employer] 12/13/2022 15:27:14 Social History Question Answer Notes LastModified by Organizat ion Details LastModified Time Tobacco Smoking Status Never Smoker FADUMO Auguste null, [employer] 06/21/2022 10:16:22 What Is Your Level Of Alcohol Consumption? None [id number] Information not available 04/28/2022 What Is Your Level Of Caffeine Consumption? Occasional [id number] Information not available 04/28/2022 How Much Tobacco Do You Chew? None [id number] Information not available 04/28/2022 In The 14 Days Before Symptom Onset, Have You Had Close Contact With A Laboratory-confir med COVID-19 While That Case Was Ill? No [email or web address] Information not available 06/21/2022 In The 14 Days Before Symptom Onset, Have You Had Close Contact With A Person Who Is Under Investigation For COVID-19 While That Person Was Ill? No Information not available 06/21/2022 Are You Currently Employed? Yes [email or web address] Information not available 06/21/2022 What Type Of Diet Are You Following? REGULAR [id number] Information not available 04/28/2022 Which Illicit Or Recreational Drugs Have You Used? None [email or web address] Information not available 06/21/2022 Do You Or Have You Ever Used E-cigarettes Or Vape? 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 No [email or web address] Information no t available 06/21/2022 Are There Any Guns Present In Your Home? No [email or web address] Information not available 06/21/2022 Do You Use Insect Repellent Routinely? No [email or web address] Information not available 06/21/2022 What Was The Date Of Your Most Recent Tobacco Screening? 06/05/2020 [email or web address] Information not available 06/21/2022 What Is Your Relationship Status? [id number] Information not available 04/28/2022 Do You Use Your Seat Belt Or Car Seat Routinely? Yes [email or web address] Information not available 06/21/2022 Do You Have Smoke And Carbon Monoxide Detectors In Your Home? Yes [email or web address] Information not available 06/21/2022 At What Age Did You Start Smoking Tobacco? 0 Information not available 06/21/2022 Are You Passively Exposed To Smoke? No [email or web address] Information no t available 06/21/2022 Do You Or Have You Ever Used Smokeless Tobacco? Never Used Smokeless Tobacco [id number] Information not available 04/28/2022 How Much Tobacco Do You Smoke? No [id number] Information not available 04/28/2022 Do You Use Any Illicit Or Recreational Drugs? No [email or web address] Information not available 06/21/2022 Do You Use Sunscreen Routinely? Yes Information not available 06/21/2022 How Many Years Have You Smoked Tobacco? 0 [email or web address] Information not available 06/21/2022 Have You Recently Traveled Abroad? No [email or web address] Information not available 06/21/2022 Do You Have Any Dietary Restrictions? No [email or web address] Information not available 06/21/2022 Do You Or Have You Ever Used Any Other Forms Of Tobacco Or Nicotine? No [email or web address] Information not available 06/21/2022 Sex: Unknown Functional Status Question Answer Note LastModified by Organizat ion Details LastModified Time What is your exercise level? Moderate walking 5 days weekly [id number] Information not available 04/28/2022 Mental Status None recorded. Family History Relationship Description Onset Age of this Age Resolved Age Notes LastModified by Organization Details LastModified Time Mother Diabetes mellitus [id number] Not available 04/28/2022 18:33:56 Mother Dialysis care [email or web address] Not available 06/21 10:16:22 Mother Congestive heart failure [email or web address] Not available 06/21 10:16:22 Father Alcoholism [email or web address] Not avail able 06/21/2022 10:16:22 Sister Amyloidosis [email or web address] Not avai lable 06/21/2022 10:16:22 Sister Malignant tumor of breast [email or web address] Not available 06/21 10:16:22 Medical History Condition Response NERVE DISEASE N BLINDNESS N RHEUMATIC FEVER N KIDNEY STONES N BLADDER PROBLEMS N OTHER # 1 N POLIO N LUNG DISEASE/DISORDER N RADIATION / CHEMOTHERAPY N COPD N Other # 2 N BLOOD DISEASES N SURGERY N EAR OR HEARING PROBLEMS N MUMPS N BOWEL PROBLEMS N DEPRESSION (INCLUDING POST ) N STROKE/TIA N ULCERS N BENIGN PROSTATIC HYPERPLASIA N MEASLES N MYOCARDIAL INFARCTION N OBESITY N GERD/NAUSEA N ANEURYSM N URINARY/BLADDER/KIDNEY PROBLEMS Y INPATIENT PSYCH CARE N CORONARY ARTERY DISEASE (CAD) N ADDICTION CONCERNS N ENDOMETRIOSIS N Impotence N USE OF BLOOD THINNERS N SKIN PROBLEMS N GASTROINTESTINAL DISORDER N PERIPHERAL VASCULAR DISEASE N MUSCLE,JOINT OR BONE PROBLEMS N GASTROINTESTINAL BLEEDING N BLOOD CLOTS N ASTHMA N CATARACTS N ERECTILE DYSFUNCTION N VARICOSITIES N GI PROBLEMS N Low Testosterone N INFERTILITY N AIDS/HIV N LIVER DISEASE N MALE HYPOGONADISM N HYPERTENSION N Deficiency N ANXIETY DISORDER Y BLOOD TRANSFUSION N ANEMIA/BLOOD DISORDER Y CHRONIC EAR INFECTIONS N BRONCHITIS N TUBERCULOSIS N GLAUCOMA N FOOT PROBLEM N DIVERTICULITIS N SLEEP APNEA Y CHICKENPOX N INFECTIOUS DISEASE N HEART ARRHYTHMIA N PROSTATE N INSOMNIA N HIGH CHOLESTEROL / HYPERLIPIDEMIA N HYPERTHYROIDISM N EYE PROBLEMS N NEUROLOGICAL PROBLEMS N EDEMA N CHRONIC PAIN SYNDROME N HYPOTHYROIDISM Y CAROTID BLOCKAGE N CONSTIPATION N BACK / NECK PROBLEMS N HAVE YOU BEEN HOSPITALIZED OR SEEN IN [facility] IN THE PAST YEAR ? N ATHEROSCLEROSIS N BREAST PROBLEMS Y DIALYSIS N ECZEMA N OSTEOPOROSIS N ARTHRITIS Y NO SIGNIFICANT PAST MEDICAL HISTORY N APPENDICITIS N DIABETES, TYPE N BAD TEETH N ENT N HEARTBURN / REFLUX N AUTISM SPECTRUM DISORDER (ASD) N HEPATITIS / LIVER DISEASE N PULMONARY DISEASE N GOUT N SLEEP DISORDER N ALZHEIMER'S DISEASE N Brain Problems N HERPES N DEMENTIA N HEADACHES/MIGRAINES N SEIZURES/EPILEPSY N VASCULAR DISEASE N PACEMAKER N Blood Disorder N DIZZINESS Y HEART DISEASE/HEART PROBLEMS N KIDNEY DISEASE N MULTIPLE SCLEROSIS N CARDIAC ARRHYTHMIA N CANCER: SPECIFY N ANESTHESIA COMPLICATIONS N ATRIAL FIBRILLATION N Gall Stones N PULMONARY EMBOLISM N AUTOIMMUNE DISEASE N Gynecological History Statement/Question Response How many live births 3 Date of Last Mammogram 09/23/2021 Date of Last Colonoscopy 08/18/2016 Sexually Active? Y Menses Monthly Y Date of Last Pap 02/28/2017 Current Control Method Tubal Ligat ion Obstetrics History GPAL:G 0 P 0 0 0 0 Immunizations Vaccine Type Date Status Note Provider Nam e and Address Organization Details Recorded Time zoster, unspecified formulation 1 completed Not Available [facility] 04/28/2022 18:35:11 COVID-19, mRNA, LNP-S, PF, 100 mcg/0.5mL dose or 50 mcg/0.25mL dose 1 completed Not Available [facility] 04/28/2022 18:35:11 COVID-19, mRNA, LNP-S, PF, 30 mcg/0.3 mL dose 0 completed Not Available [facility] 04/28/2022 18:35:11 influenza, unspecified formulation 6 completed Not Available [facility] 04/28/2022 18:35:11 tetanus toxoid, unspecified formulation 5 completed Not Available [facility] 04/28/2022 18:35:11 Influenza, split virus, quadrivalent, PF 0 completed Not Available [facility] 04/28/2022 18:35:12 Past Encounters Encounter ID Performer Location Encounter Start Date Encounter Closed Date Diagnosis/Indication Diagnosis SNOMED-CT Code Diagnosis ICD10 Code Diagnosis Note [id number] HANNAH Rodriguez [facility] [place] [address] [place] [address] 05/14/2020 00:00:00 05/20/2020 23:15:14 [id number] HANNAH Rodriguez [facility] [place] [address] [place] [address] 06/05/2020 00:00:00 06/26/2020 23:35:21 [id number] Genaro Hamilton MD [facility] Internal [facility] [place] [address] [place] [address] 07/03/2021 00:00:00 07/28/2021 21:54:11 [id number] HANNAH Rodriguez [facility] Internal [facility] [place] [address] [place] [address] 12/21/2021 00:00:00 12/26/2021 15:00:26 [id number] HANNAH Rodriguez [facility] Internal [facility] [place] [address] [place] [address] 06/21/2022 10:16:08 06/21/2022 10:52:40 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 due for next TFTs in 2022 Hyperlipidemia 65441410 E78.5 diet controlled . due for fasting lipids in nov Long-term drug therapy 819016819 Z79.899 Screening for malignant neoplasm of colon 277695902 Z12.11 pt opts for cologuard testing method Seronegati ve rheumatoid arthritis 838327435 M06.00 following with Rheumatolo gy routinely and on MTX (plus folic acid) and sulfasalaz ine now. Anxiety 26455283 F41.9 stable with PRN alprazolam low dose. 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 labs are pending results. repeat panel in may 2023 Hyperlipidemia 67852625 E78.5 diet and exercise managed. labs pending results. next labs due in may Iron defic iency anemia 71665668 D50.9 check labs the next time in may Seronegati ve rheumatoid arthritis 011085046 M06.00 following with Rheumatolo gy routinely and on MTX (plus folic acid) and inflectra infusion. Long-term drug therapy 273022260 Z79.899 Diabetes m ellitus screening 372901413 Z13.1 Health Concerns Section Related Observation LastModified by Organization Detai ls LastModified Time None Recorded Concern Status LastModified by Organization Details LastModified Time None Recorded Advance Directives Directive None Recorded Payers Encounter Date Sequence Insurance Name Policy Number Policy [place] Covered Member ID [place] Member ID Guarantor Name 06/21/2022 1 [facility] [id number] Rhianna Quinn Katherine [id number] [facility] [place] 06/21/2022 2 [place] [id number] Ulices Murphy [id number] [facility] 12/13/2022 1 [facility] [id number] Rhianna Quinn Katherine [id number] [facility]na [facility] [place] 12/13/2022 2 [place] [id number] Ulices Murphy [id number] [facility] Notes Date Note Type Note Provider Name and Address Organization Details Recorded Time 06/06/19 21 text/ht ml Musculoskeletal PainReported bypatient.Location:right knee Quality:dull Severity:worsening Duration:present <1 month Timing:constant Alleviating factors:rest Aggravating factors:movement/positioning; bending over; twisting Associated Symptoms:no fever; no weak limbs; no tingling; no numbness of the legs/feet Not Available [facility] [employer] 06/26/2020 23:35:21 07/04/19 22 text/ht ml HypothyroidismReported bypatient.Quality:not changing Duration:constant Onset/Timing:still present Context/Risk:normal thyroid levels; no history of head or neck radiation during childhood; no history of thyroid disease; no history of hyperthyroidism; no excess iron exposure;history of hypothyroidism;female gender Modifying Factors:medication Exercisegets exercise Associated Symptoms:no cold intolerance; no heat intolerance; no weight loss; no weight gain; no double vision; no dry eyes; no hoarseness; no difficulty swallowing; no neck masses; no deepening of the voice; no fast heart rate; no increased blood pressure; no palpitations; no chest pain; no chest tightess or pressure; no constipation; no diarrhea; no vomiting; no decreased appetite; no loose stools; no irregular menstrual periods; no excessive sweating; no joint pain; no numbness; no tingling of the hands or feet; no dry skin; no tremor; no nervousness; no anxiety; no depression; no fatigue; no sleep difficulties; no skin changes; no hair changes Not Available [employer] 07/28/2021 21:54:11 12/22/19 22 text/ht ml HypothyroidismReported bypatient.Quality:not changing Duration:constant Onset/Timing:still present Context/Risk:normal thyroid levels; no history of head or neck radiation during childhood; no history of thyroid disease; no history of hyperthyroidism; no excess iron exposure;history of hypothyroidism;female gender Modifying Factors:medication Exercisegets exercise Associated Symptoms:no cold intolerance; no heat intolerance; no weight loss; no weight gain; no double vision; no dry eyes; no hoarseness; no difficulty swallowing; no neck masses; no deepening of the voice; no fast heart rate; no increased blood pressure; no palpitations; no chest pain; no chest tightess or pressure; no constipation; no diarrhea; no vomiting; no decreased appetite; no loose stools; no irregular menstrual periods; no excessive sweating; no joint pain; no numbness; no tingling of the hands or feet; no dry skin; no tremor; no nervousness; no anxiety; no depression; no fatigue; no sleep difficulties; no skin changes; no hair changes Not Available [employer] 12/26/2021 15:00:26 06/22/19 23 text/ht ml HyperlipidemiaReported bypatient.Duration:chronic Control:usually well controlled Compliance:compliant; compliant with diet; exercises Complications:no coronary artery disease; no peripheral artery disease; no cardiovascular diseaseHypothyroidismReported bypatient.Quality:not changing Duration:constant Onset/Timing:still present Context/Risk:normal thyroid levels; no history of head or neck radiation during childhood; no history of thyroid disease; no history of hypothyroidism; no history of hyperthyroidism; no excess iron exposure;history of hypothyroidism;female gender Modifying Factors:medication Exercisegets exercise Associated Symptoms:no cold intolerance; no heat intolerance; no weight loss; no weight gain; no double vision; no dry eyes; no hoarseness; no difficulty swallowing; no neck masses; no deepening of the voice; no fast heart rate; no increased blood pressure; no palpitations; no chest pain; no chest tightess or pressure; no constipation; no diarrhea; no vomiting; no decreased appetite; no loose stools; no irregular menstrual periods; no excessive sweating; no joint pain; no numbness; no tingling of the hands or feet; no dry skin; no tremor; no nervousness; no anxiety; no depression; no fatigue; no sleep difficulties; no skin changes; no hair changes Wellness HANNAH Rodriguez [address], [address], [place] [facility] [employer] [employer] 06/24/2022 16:38:53 12/14/19 23 text/ht ml Anxiety/DepressionReported bypatient.Quality:symptoms worse during the day Severity:denies suicidal ideations; able to maintain relationships;interference with sleep Duration:symptoms lasting over 2 weeks Onset/Timing:still present Context:no major life stressors Associated Symptoms:denies homicidal ideations; no significant weight gain; no significant weight loss; no visual/auditory hallucinations; no delusions; no shortness of breathHyperlipidemiaReported bypatient.Duration:chronic Control:usually well controlled Compliance:compliant; compliant with diet; exercises Complications:no coronary artery disease; no peripheral artery disease; no cardiovascular diseaseHypothyroidismReported bypatient.Quality:not changing Duration:constant Onset/Timing:still present Context/Risk:normal thyroid levels; no history of head or neck radiation during childhood; no history of thyroid disease; no history of hypothyroidism; no history of hyperthyroidism; no excess iron exposure;history of hypothyroidism;female gender Modifying Factors:medication Exercisegets exercise Associated Symptoms:no cold intolerance; no heat intolerance; no weight loss; no weight gain; no double vision; no dry eyes; no hoarseness; no difficulty swallowing; no neck masses; no deepening of the voice; no fast heart rate; no increased blood pressure; no palpitations; no chest pain; no chest tightess or pressure; no constipation; no diarrhea; no vomiting; no decreased appetite; no loose stools; no irregular menstrual periods; no excessive sweating; no joint pain; no numbness; no tingling of the hands or feet; no dry skin; no tremor; no nervousness; no anxiety; no depression; no fatigue; no sleep difficulties; no skin changes; no hair changes HANNAH Rodriguez [address] [facility], [address], [address], [facility] 12/26/2022 22:19:10 OBGyn Episode No OBEpisode recorded.
--- OUTSIDE RECORDS SUMMARY | 2024-07-04 10:12 | XMS_ITS | Clinical Summary ---
Author Organization [facility] Address [address] [place] [address] Care Team Providers Care Modern Languages Professor Name Role Phone Pilardavin Gisele YOUNG Primary Care Pr ovider Rosita Aguilera MD Unavailable [phone] Allergies Active Allergy Reactions Criticality Noted Date [...] Noted Date Diagnosed Date Rheumatoid arthritis of mult iple sites with negative rheumatoid factor 12/24/2020 Assessment [...] 04/02/2020 Assessment & Plan (04/02/2020 1:35 PM HEADER SET UP OPERATOR): Mild. Suspect was worse last 2 mornings. Pach ordered today- slightly thicker CCT than last measurements in 2018. rec no contact lens (CL) wear for 1 week, then remove earlier in the day after re-challenge. If symptoms return, rec corneal consult. If better- may consider ainsley next Cl refit. Iron deficiency anemia 05/19/2018 [...] 09/15/2017 Assessment & Plan (04/02/2020 1:34 PM HEADER SET UP OPERATOR): Monitor. Mild ocular HTN, chronic. Has follow up/ recall next Fall (and just saw Dr Calvo 12/28/19). Iron deficiency anemia due to chronic blood loss 09/16/2016 Menorrhagia 09/16/2016 Hypothyroidism 07/14/2013 Overview (06/02/2016): HYPOTHYROIDISM NOS Lymphocytic thyroiditis 07/14/2013 Overview (06/04/2016): CHR LYMPHOCYT THYROIDIT Encounters * This document contains information received from the source organization and may not represent a complete record from that organization. Date Type Department Care Team Description 06/14/2024 8:00 AM CDT Infusion [facility] Infusion Therapy [address] [place] [address] 5th [place] [address] [place] [address] Long-term current use of high risk medication other than anticoagulant (Primary Dx) 05/18/2024 9:45 AM CDT Clinical Support [facility] at [address] [address] Encounter for screening for COVID-19 [Z11.52] (Primary Dx) 05/18/2024 9:39 AM CDT - 05/18/2024 11:59 PM CDT Hospital Encounter [address] [place] [address] Respiratory illness; Fever, unspecified fever cause; Cough, unspecified type; Body aches; Nonintractable headache, unspecified chronicity pattern, unspecified headache type; Sore throat; Nasal congestion; Runny nose; Fatigue, unspecified type Discharge Disposition: Discharge to home or self care 05/17/2024 1:00 PM CDT Telemedicine [facility] Psychiatry [address] 2nd [address] [place] [address] Leandra Yanez, DIRECTOR OF AUDIOLOGY Adjustment disorder with depressed mood in remission (Primary Dx) 05/10/2024 Telephone [facility] Cardiology [address] [facility] 8th [place] [address] [place] [address] Anand Portillo New Patient 05/03/2024 1:00 PM HEADER SET UP OPERATOR Infusion [facility] Infusion Therapy [address] [facility] 5th [place] [address] [place] [address] Long-term current use of high risk medication other than anticoagulant (Primary Dx) 04/19/2024 9:00 AM HEADER SET UP OPERATOR Office Visit [facility] Psychiatry [address] 2nd Floor [address] [place] [id number] Leandra Yanez, DIRECTOR OF AUDIOLOGY Adjustment disorder with depressed mood in remission (Primary Dx) 04/11/2024 10:15 AM HEADER SET UP OPERATOR Lab [facility] Endocrinology Metabolism and Lipid [address] [facility] 5th [place] [address] [place] [id number] Rheumatoid arthritis of multiple sites with negative rheumatoid factor (HCC) 04/11/2024 9:40 AM HEADER SET UP OPERATOR Office Visit [facility] Rheumatology [address] [facility] 5th [place] [address] [place] [id number] Denisa Izaguirre MD Rheumatoid arthritis of multiple sites with negative rheumatoid factor (HCC) (Primary Dx); Encounter for long-term (current) use of high-risk medication from Last 3 Months Immunizations Immunization Administration Dates Next Due Influenza, Trivalent, Cell C ulture-based MDCK, Preservative Free, Antibiotic Free, Intramuscular 12/20/2023 ZOSTER Recombinant 06/04/2020 Surgical History Surgery Date Site/Laterality Comments KIDNEY SURGERY Kidney Surgery - (Added by TW Conv) AL DELIVERY ONLY Section - (Added by TW Conv) AL TYMPANOPLASTY W/O MASTOID ECT W/O OSSICLE RECNSTJ Tympanoplasty - (Added by TW Conv) MYRINGOTOMY W/ TUBES Myringotomy - (Added by TW Conv) Medical History Medical History Date Comments Personal history of other me ntal and behavioral disorders History of depression - (Add ed by TW Conv) Personal history of other di seases of urinary system History of pyelonephritis - (Added by TW Conv) Autoimmune thyroiditis Yajaira 's thyroiditis - (Added by TW Conv) Hypersomnia Sleeping excessi ve - (Added by TW Conv) Family History Medical History Relation Name Comments Diabetes Mother Family history of diabetes mellitus - (Added by TW Conv) Diabetes Other 1 Diabetes Mellit us - mom and MGM (Added by JEMMA Conv) Migraines Other 2 Migraine Headac he - sister (Added by JEMMA Conv) Breast cancer Sister Family history of malignant neoplasm of breast - (Added by JEMMA Conv) Relation Name Status Comments Mother Other 1 Other 2 Sister Social History Tobacco Use Types Packs/Day Years [...] on file Legal Sex Female 11:57 PM HEADER SET UP OPERATOR Gender Identity Not on file Sexual Orientation Not on file Obstetrics History Last Filed Vital Signs Vital Sign Reading Time Taken Comments Blood Pressure 130/83 06/14/2024 8:01 AM CDT Pulse 69 06/14/2024 8:01 AM CDT Temperature 36.4 C (97.6 F) 04/11/2024 9:37 AM HEADER SET UP OPERATOR Respiratory Rate 14 06/14/2024 8:01 AM CDT Oxygen Saturation 100% 05/03/2024 1:13 PM HEADER SET UP OPERATOR Inhaled Oxygen Concentration - - Weight 62.6 kg (138 lb) 05/03/2024 12:40 PM HEADER SET UP OPERATOR Height 157.5 cm (5' 2 ) 04/11/2024 9:37 AM HEADER SET UP OPERATOR Body Mass Index 25.24 04/11/2024 9:37 AM HEADER SET UP OPERATOR Plan of Treatment Health Maintenance Due Date Last Done Comments Cervical Cancer Screening 1974 Colon Cancer Screening-Colonoscopy 1974 DTaP/Tdap/Td Vaccine (1 - Tdap) 1985 Hepatitis B Screening 1992 Regular Well Visit/Exam 18-64 1992 Pneumococcal vaccine <65 (1 of 2 - PCV) 1993 Zoster Vaccine (2 of 2) 07/30/2020 06/04/2020 Covid-19 Vaccine (4 - 2023-2 5 season) 2023 10/15/2020, 03/12/2020, 03/12/2020, Additional history exists Breast Cancer Screening-Mammogram 08/15/2024 08/16/2023, 08/13/2022, 09/23/2021, Additional history exists Depression Screening 02/22/2025 02/23/2024, 02/23/20 Hepatitis C Screening Completed 06/04/2020 Influenza Vaccine Completed 12/20/2023, , 12/08/2015 Procedures Procedure Name Priority Date/Time Associated Diagnosis Comments INFLUENZA A/B, RSV, AND COVID-19 PCR Routine 05/18/2024 9:39 AM CDT Respiratory illness Fever, unspecified fever cause Cough, unspecified type Body aches Nonintractable headache, unspecified chronicity pattern, unspecified headache type Sore throat Nasal congestion Runny nose Fatigue, unspecified type COMPREHENSIVE METABOLIC PANEL Routine 04/11/2024 10:15 AM HEADER SET UP OPERATOR Rheumatoid arthritis of multiple sites with negative rheumatoid factor (HCC) CBC WITH AUTO DIFFERENTIAL Routine 04/11/2024 10:15 AM HEADER SET UP OPERATOR Rheumatoid arthritis of multiple sites with negative [...] Nasopharyngeal (05/18/2024 9:39 AM CDT) Pathologist [facility] COVID-19 RNA Negative Negative Influenza A RNA Negative Negative [facility] Influenza B RNA Negative Negative [facility] RSV RNA Negative Negative [facility] Comment: Interpretive data: Testing performed by Laboratory. This test is performed using the [employer] Xpert Xpress CoV-2/Flu/RSV plus assay. This is a multiplex, real-time reverse transcriptase PCR assay intended for the qualitative detection of nucleic acid from SARS-CoV-2, influenza A, influenza B, and respiratory syncytial virus. This assay has been cleared by the [place] Food and Drug administration. The performance characteristics have been verified by the Laboratory. Results must be considered in the clinical context, and a negative result does not rule out infection. 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 Fever, cough, shortness of breath)?->Yes Reason for testing?->Symptomatic Is the Patient experiencing symptoms consistent with COVID?->Yes Taras Rivera MD LAB MICROBIOLOGY - NERAL ORDERABLES Final Result [facility] [address] Department [place] [address] * CBC with auto differential (04/11/2024 10:15 AM HEADER SET UP OPERATOR) [facility] White Blood Count 8.5 3.6 - 11.2 [...] - [facility] Blood 04/11/2024 10:1 5 AM HEADER SET UP OPERATOR 04/11/2024 11:06 AM HEADER SET UP OPERATOR us Denisa Izaguirre MD LAB BLOOD ORDERABLES Final Result [facility] * Comprehensive metabolic panel (04/11/2024 10:15 AM HEADER SET UP OPERATOR) Pathologist [facility] Total Protein 7.5 6.1 - 8.4 g/dL [...] - [facility] Blood 04/11/2024 10:1 5 AM HEADER SET UP OPERATOR 04/11/2024 11:06 AM HEADER SET UP OPERATOR Denisa Izaguirre MD LAB BLOOD ORDERABLES Final [...] compared to prior imaging studies performed at [facility] on 08/14/2020, 09/23/2021 and 08/13/2022. The [...] compared to prior imaging studies performed at [facility] on 08/14/2020, 09/23/2021 and 08/13/2022. The [...] OVERALL FINAL ASSESSMENT: BI-RADS CATEGORY 1: Negative. Self Screening Mammogram IMG MAMMO PROCEDURES Fi nal Result * Hepatitis C antibody (06/04/2020 11:11 AM CDT) Hep C Ab Nonreactive Nonreactive [facility] Comment:Antibodies to HCV no t detected. Does NOT exclude the possibility of recent exposure to HCV. Blood specimen (specimen) 06/04/2020 11:11 AM CDT 06/04/2020 11:25 AM CDT Piyush Yap MD LAB MICROBIOLOGY - GENER AL ORDERABLES Edited Result - Final [facility] [place] [address] from Last 3 Months or Most Recently Relevant to Health [place] [address] [employer] Care Teams Modern Languages Professor Relationship Specialty Start Date End Date Gisele Medina PA PCP - General 09/16/16 Rosita Aguilera MD [address] [place] [address] Medical Oncologist/Diesel Power Mechanic Hematology 04/30/20
--- OUTSIDE RECORDS SUMMARY | 2024-07-04 10:12 | XMS_ITS ---
ic 1999 panel - Serum or Plasm a chloride [moles/volum e] in serum or plasma chlor gilson Not Available Not Available 05/08/2024 13:23:23 07/22/19 24 07/23/2023 [facility] 1999 panel - Serum or Plasm a carbon dioxide, total [moles/volum e] in serum or plasma carbo n dioxi de Not Available Not Available 05/08/2024 13:23:23 07/22/19 24 07/23/2023 [facility] 1999 panel - Serum or Plasm a calcium [mass/volume ] in serum or plasma calci um Not Available Not Available 05/08/2024 13:23:23 07/22/19 24 07/23/2023 [facility] 1999 panel - Serum or Plasm a protein [mass/volume ] in serum or plasma prote in, total Not Available Not Available 05/08/2024 13:23:23 07/22/19 24 07/23/2023 [facility] 1999 panel - Serum or Plasm a albumin [mass/volume ] in serum or plasma album in Not Available Not Available 05/08/2024 13:23:23 07/22/19 24 07/23/2023 [facility] 1999 panel - Serum or Plasm a globulin [mass/volume ] in serum by calculation globu [place]renton Not Available Not Available 05/08/2024 13:23:23 07/22/19 24 07/23/2023 [facility] 1999 panel - Serum or Plasm a albumin/glob ulin [mass ratio] in serum or plasma album in/gl obuli n ratio Not Available Not Available 05/08/2024 13:23:23 07/22/19 24 07/23/2023 [facility] 1999 panel - Serum or Plasm a bilirubin.to clara [mass/volume ] in serum or plasma bilir ubin, total Not Available Not Available 05/08/2024 13:23:23 07/22/19 24 07/23/2023 [facility] 1999 panel - Serum or Plasm a alkaline phosphatase [enzymatic activity/vol ume] in serum or plasma alkal ine phosp hatas e Not Available Not Available 05/08/2024 13:23:23 07/22/19 24 07/23/2023 Compr ehens edna metab olic 1999 panel - Serum or Plasm a aspartate aminotransfe rase [enzymatic activity/vol ume] in serum or plasma AST Not Available Not Available 04/28 13:23:23 07/22/19 24 07/23/2023 Compr ehens edna metab olic 1999 panel - Serum or Plasm a alanine aminotransfe rase [enzymatic activity/vol ume] in serum or plasma ALT Not Available Not Available 04/28 13:23:23 07/22/19 24 07/23/2023 Lipid 1995 panel - Serum or Plasm a cholesterol [mass/volume ] in serum or plasma mariama stero l, total Not Available Not Available 05/08/2024 13:23:23 07/22/19 24 07/23/2023 Lipid 1995 panel - Serum or Plasm a cholesterol in HDL [mass/volume ] in serum or plasma HDL mariama stero l Not Available Not Available 05/08/2024 13:23:23 07/22/19 24 07/23/2023 Lipid 1996 panel - Serum or Plasm a triglyceride [mass/volume ] in serum or plasma trigl yceri driss Not Available Not Available 05/08/2024 13:23:23 07/22/19 24 07/23/2023 Lipid 1996 panel - Serum or Plasm a cholesterol in LDL [mass/volume ] in serum or plasma by calculation high LDL-c holes terol Not Available Not Available 05/08/2024 13:23:23 07/22/19 24 07/23/2023 Lipid 1996 panel - Serum or Plasm a cholesterol. total/choles terol in HDL [mass ratio] in serum or plasma chol/ HDLC ratio Not Available Not Available 05/08/2024 13:23:23 07/22/19 24 07/23/2023 Lipid 1996 panel - Serum or Plasm a cholesterol in LDL/choleste rol in HDL [mass ratio] in serum or plasma LDL/H DL ratio Not Available Not Available 05/08/2024 13:23:23 07/22/19 24 07/23/2023 Lipid 1996 panel - Serum or Plasm a cholesterol non HDL [mass/volume ] in serum or plasma high non HDL mariama stero l Not Available Not Available 05/08/2024 13:23:23 07/22/19 24 07/23/2023 Free T4 and TSH panel - Serum or Plasm a thyrotropin [units/volum e] in serum or plasma TSH Not Available Not Available 13:23:23 07/22/19 24 07/23/2023 Free T4 and TSH panel - Serum or Plasm a thyroxine (T4) free [mass/volume ] in serum or plasma T4, free Not Available Not Available 05/08/2024 13:23:23 02/07/20 24 02/07/2024 CBC W Auto Diffe renti al panel - Blood leukocytes [#/volume] in blood by automated count 7.4 K/uL low: 3.6K/u Lhigh: 11.2K/ uL White Blood Count 7.4 3.6 - 11.2 K/uL [facility] - [facility] Not Available Not Available 04/11/2024 17:25:37 02/07/20 24 02/07/2024 CBC W Auto Diffe renti al panel - Blood erythrocytes [#/volume] in blood by automated count 3.99 text: 3.63 - 4.92 M/uL RBC 3.99 3.63 - 4.92 M/uL [facility] - [facility] Not Available Not Available 04/11/2024 17:25:37 02/07/20 24 02/07/2024 CBC W Auto Diffe renti al panel - Blood hemoglobin [mass/volume ] in blood 12.8 g/dL low: 11.9g/ dLhigh : 15.5g/ dL Hemog lobin 12.8 11.9 - 15.5 g/dL [facility] - [facility] Not Available Not Available 04/11/2024 17:25:37 02/07/20 24 02/07/2024 CBC W Auto Diffe renti al panel - Blood hematocrit [volume fraction] of blood by automated count 37.7 % low: 36.1%h igh: 44.3% Hemat ocrit 37.7 36.1 - 44.3 % [facility] - [facility] Not Available Not Available 04/11/2024 17:25:37 02/07/20 24 02/07/2024 CBC W Auto Diffe renti al panel - Blood MCV [entitic volume] by automated count 94.3 fL low: 80fLhi gh: 97.6fL MCV 94.3 80.0 - 97.[address] - [facility] Not Available Not Available 04/11/2024 17:25:37 02/07/20 24 02/07/2024 CBC W Auto Diffe renti al panel - Blood MCH [entitic mass] by automated count 31.9 pg low: 26.7pg high: 33.7pg MCH 31.9 26.7 - 33.[address] - [facility] Not Available Not Available 04/11/2024 17:25:37 02/07/20 24 02/07/2024 CBC W Auto Diffe renti al panel - Blood MCHC [mass/volume ] by automated count 33.9 g/dL low: 32.7g/ dLhigh : 35.5g/ dL MCHC 33.9 32.7 - 35.5 g/dL [facility] - [facility] Not Available Not Available 04/11/2024 17:25:37 02/07/20 24 02/07/2024 CBC W Auto Diffe renti al panel - Blood erythrocyte distribution width [ratio] by automated count 13.1 % low: 12.3%h igh: 17% RBC Dist Width 13.1 12.3 - 17.0 % [facility] - [facility] Not Available Not Available 04/11/2024 17:25:37 02/07/20 24 02/07/2024 CBC W Auto Diffe renti al panel - Blood platelets [#/volume] in blood by automated count 293 K/uL low: 140K/u Lhigh: 440K/u L Plate let Count 293 140 - 440 K/uL [facility] - [facility] Not Available Not Available 04/11/2024 17:25:37 02/07/20 24 02/07/2024 CBC W Auto Diffe renti al panel - Blood platelet mean volume [entitic volume] in blood by automated count 9.3 fL low: 6.8fLh igh: 10.4fL MPV 9.3 6.8 - 10.[address] - [facility] Not Available Not Available 04/11/2024 17:25:37 02/07/20 24 02/07/2024 CBC W Auto Diffe renti al panel - Blood neutrophils/ 100 leukocytes in blood by automated count 54.5 % low: 38.7%h igh: 74.5% Neutr ophil s % 54.5 38.7 - 74.5 % [facility] - [facility] Not Available Not Available 04/11/2024 17:25:37 02/07/20 24 02/07/2024 CBC W Auto Diffe renti al panel - Blood lymphocytes/ 100 leukocytes in blood by automated count 32.9 % low: 20%hig h: 54.3% Lymph ocyte % 32.9 20.0 - 54.3 % [facility] - [facility] Not Available Not Available 04/11/2024 17:25:37 02/07/20 24 02/07/2024 CBC W Auto Diffe renti al panel - Blood monocytes/10 0 leukocytes in blood by automated count 7.1 % low: 4.3%hi gh: 13.5% Monoc ytes % 7.1 4.3 - 13.5 % [facility] - [facility] Not Available Not Available 04/11/2024 17:25:37 02/07/20 24 02/07/2024 CBC W Auto Diffe renti al panel - Blood eosinophils/ 100 leukocytes in blood by automated count 4.5 % low: 0%high : 6% Eosin ophil s % 4.5 0.0 - 6.0 % [facility] - [facility] Not Available Not Available 04/11/2024 17:25:37 02/07/20 24 02/07/2024 CBC W Auto Diffe renti al panel - Blood basophils/10 0 leukocytes in blood by automated count 1 % low: 0%high : 3% Basop hil % 1.0 0.0 - 3.0 % [facility] - [facility] Not Available Not Available 04/11/2024 17:25:37 02/07/20 24 02/07/2024 CBC W Auto Diffe renti al panel - Blood neutrophils [#/volume] in blood by automated count 4 K/uL low: 1.8K/u Lhigh: 6.6K/u L Absol [place] Neutr ophil 4.0 1.8 - 6.6 K/uL [facility] - [facility] Not Available Not Available 04/11/2024 17:25:37 02/07/20 24 02/07/2024 CBC W Auto Diffe renti al panel - Blood lymphocytes [#/volume] in blood by automated count 2.4 K/uL low: 0.8K/u Lhigh: 3.3K/u L Absol [place] Lymph ocyte 2.4 0.8 - 3.3 K/uL [facility] - [facility] Not Available Not Available 04/11/2024 17:25:37 02/07/20 24 02/07/2024 CBC W Auto Diffe cindy al panel - Blood monocytes [#/volume] in blood by automated count 0.5 K/uL low: 0.2K/u Lhigh: 1.2K/u L Absol [place] Monoc yte 0.5 0.2 - 1.2 K/uL [facility] - [facility] Not Available Not Available 04/11/2024 17:25:37 02/07/20 24 02/07/2024 CBC W Auto Diffe cindy al panel - Blood eosinophils [#/volume] in blood by automated count 0.3 K/uL low: 0K/uLh igh: 0.5K/u L Absol [place] Eosin ophil 0.3 0.0 - 0.5 K/uL [facility] - [facility] Not Available Not Available 04/11/2024 17:25:37 02/07/20 24 02/07/2024 CBC W Auto Diffe cindy lai panel - Blood basophils [#/volume] in blood by automated count 0.1 K/uL low: 0K/uLh igh: 0.2K/u L Absol [place] Basop hil 0.1 0.0 - 0.2 K/uL [facility] - [facility] Not Available Not Available 04/11/2024 17:25:37 02/07/20 24 02/07/2024 CBC W Auto Diffe eleniti al panel - Blood nucleated erythrocytes /100 leukocytes [ratio] in blood by automated count 0.1 text: 0.0 - 0.4 /100 WBC Nucle ated RBC % 0.1 0.0 - 0.4 /[address] - [facility] Not Available Not Available 04/11/2024 17:25:37 02/07/20 24 02/07/2024 Compr ehens edna metab olic 2000 panel - Serum or Plasm a protein [mass/volume ] in serum or plasma 7.5 g/dL low: 6.1g/d Lhigh: 8.4g/d L Total Prote in 7.5 6.1 - 8.4 g/dL [facility] - [facility] Not Available Not Available 04/11/2024 17:25:37 02/07/20 24 02/07/2024 [facility] [employer] [facility] 1999 panel - Serum or Plasm a albumin [mass/volume ] in serum or plasma by bromocresol green (bcg) dye binding method 4.2 g/dL low: 3.5g/d Lhigh: 5.2g/d L Album in 4.2 3.5 - 5.2 g/dL [facility] - [facility] Not Available Not Available 04/11/2024 17:25:37 02/07/20 24 02/07/2024 [facility] [employer] 1999 panel - Serum or Plasm a calcium [mass/volume ] in serum or plasma 9.6 mg/dL low: 8.6mg/ dLhigh : 10.3mg /dL Calci um 9.6 8.6 - 10.3 mg/dL [facility] - [facility] Not Available Not Available 04/11/2024 17:25:37 02/07/20 24 02/07/2024 [facility] [employer] 1999 panel - Serum or Plasm a urea nitrogen [mass/volume ] in serum or plasma 16 mg/dL low: 7mg/dL high: 23mg/d L BUN 16 7 - 23 mg/dL [facility] - [facility] Not Available Not Available 04/11/2024 17:25:37 02/07/20 24 02/07/2024 [facility] [employer] 1999 panel - Serum or Plasm a bilirubin.to clara [mass/volume ] in serum or plasma 0.22 mg/dL low: 0.2mg/ dLhigh : 1.4mg/ dL Total Bilir ubin 0.22 0.20 - 1.40 mg/dL [facility] - [facility] Not Available Not Available 04/11/2024 17:25:37 02/07/20 24 02/07/2024 [facility] [employer] [facility] 1999 panel - Serum or Plasm a alkaline phosphatase [enzymatic activity/vol ume] in serum or plasma 59 text: 35 - 129 IU/L Alk Phos, Total 59 35 - 129 IU/L [facility] - [facility] Not Available Not Available 04/11/2024 17:25:37 02/07/20 24 02/07/2024 Compr [employer] olic 1999 panel - Serum or Plasm a aspartate aminotransfe rase [enzymatic activity/vol ume] in serum or plasma 20 text: 11 - 47 IU/L AST (SGOT ) 20 11 - 47 IU/L [facility] - [facility] Not Available Not Available 04/11/2024 17:25:37 02/07/20 24 02/07/2024 Compr Categoricalens edna metab olic 1999 panel - Serum or Plasm a alanine aminotransfe rase [enzymatic activity/vol ume] in serum or plasma by no addition of P-5'-P 15 text: 6 - 53 IU/L ALT (SGPT ) 15 6 - 53 IU/L [facility] - [facility] Not Available Not Available 04/11/2024 17:25:37 02/07/20 24 02/07/2024 [facility] [employer] olic 1999 panel - Serum or Plasm a creatinine [mass/volume ] in serum or plasma 0.88 mg/dL low: 0.6mg/ dLhigh : 1.1mg/ dL Creat inine 0.88 0.60 - 1.10 mg/dL [facility] - [facility] Not Available Not Available 04/11/2024 17:25:37 02/07/20 24 02/07/2024 Compr [employer] olic 1999 panel - Serum or Plasm a sodium [moles/volum e] in serum or plasma 141 mmol/ L low: 135mmo l/Lhig h: 145mmo l/L Sodiu m 141 135 - 145 mmol/ L [facility] - [facility] Not Available Not Available 04/11/2024 17:25:37 02/07/20 24 02/07/2024 Compr [employer] olic 2000 panel - Serum or Plasm a potassium [moles/volum e] in serum or plasma 4.3 mmol/ L low: 3.3mmo l/Lhig h: 5.1mmo l/L Potas sium 4.3 3.3 - 5.1 mmol/ L [facility] - [facility] Not Available Not Available 04/11/2024 17:25:37 02/07/20 24 02/07/2024 [facility] [employer] olic 1999 panel - Serum or Plasm a chloride [moles/volum e] in serum or plasma 104 mmol/ L low: 95mmol /Lhigh : 107mmo l/L Chlor gilson 104 95 - 107 mmol/ L [facility] - [facility] Not Available Not Available 04/11/2024 17:25:37 02/07/20 24 02/07/2024 Compr Categoricalens edna metab olic 1999 panel - Serum or Plasm a bicarbonate [moles/volum e] in serum or plasma 29 mmol/ L low: 21mmol /Lhigh : 29mmol /L CO2 Stephanie nt 29 21 - 29 mmol/ L [facility] - [facility] Not Available Not Available 04/11/2024 17:25:37 02/07/20 24 02/07/2024 [facility] [employer] metab olic 1999 panel - Serum or Plasm a glucose [mass/volume ] in serum or plasma 75 mg/dL low: 64mg/d Lhigh: 99mg/d L Gluco se 75 64 - 99 mg/dL [facility] - [facility] Not Available Not Available 04/11/2024 17:25:37 02/07/20 24 02/07/2024 [facility] [employer] ic 1999 panel - Serum or Plasm a glomerular filtration rate/1.73 sq M.predicted among non-blacks [volume rate/area] in serum, plasma or blood by creatinine-b ased formula (MDRD) 80.5 text: >60.0 mL/min /1.73 m2 eGFR 80.5 >60.0 mL/mi n/1.[address] - [facility] Not Available Not Available 04/11/2024 17:25:37 04/11/19 25 04/11/2024 CBC W Auto Diffe renti al panel - Blood leukocytes [#/volume] in blood by automated count 8.5 K/uL low: 3.6K/u Lhigh: 11.2K/ uL White Blood Count 8.5 3.6 - 11.2 K/uL [facility] - [facility] Not Available Not Available 04/11/2024 17:25:37 04/11/19 25 04/11/2024 CBC W Auto Diffe renti al panel - Blood erythrocytes [#/volume] in blood by automated count 4.2 text: 3.63 - 4.92 M/uL RBC 4.20 3.63 - 4.92 M/uL [facility] - [facility] Not Available Not Available 04/11/2024 17:25:37 04/11/19 25 04/11/2024 CBC W Auto Diffe renti al panel - Blood hemoglobin [mass/volume ] in blood 12.9 g/dL low: 11.9g/ dLhigh : 15.5g/ dL Hemog lobin 12.9 11.9 - 15.5 g/dL [facility] - [facility] Not Available Not Available 04/11/2024 17:25:37 04/11/19 25 04/11/2024 CBC W Auto Diffe cindy al panel - Blood hematocrit [volume fraction] of blood by automated count 38.5 % low: 36.1%h igh: 44.3% Hemat ocrit 38.5 36.1 - 44.3 % [facility] - [facility] Not Available Not Available 04/11/2024 17:25:37 04/11/19 25 04/11/2024 CBC W Auto Diffe renti al panel - Blood MCV [entitic volume] by automated count 91.7 fL low: 80fLhi gh: 97.6fL MCV 91.7 80.0 - 97.[address] - [facility] Not Available Not Available 04/11/2024 17:25:37 04/11/19 25 04/11/2024 CBC W Auto Diffe cindy al panel - Blood MCH [entitic mass] by automated count 30.9 pg low: 26.7pg high: 33.7pg MCH 30.9 26.7 - 33.[address] - [facility] Not Available Not Available 04/11/2024 17:25:37 04/11/19 25 04/11/2024 CBC W Auto Diffe cindy al panel - Blood MCHC [mass/volume ] by automated count 33.7 g/dL low: 32.7g/ dLhigh : 35.5g/ dL MCHC 33.7 32.7 - 35.5 g/dL [facility] - [facility] Not Available Not Available 04/11/2024 17:25:37 04/11/19 25 04/11/2024 CBC W Auto Diffe renti al panel - Blood erythrocyte distribution width [ratio] by automated count 12.9 % low: 12.3%h igh: 17% RBC Dist Width 12.9 12.3 - 17.0 % [facility] - [facility] Not Available Not Available 04/11/2024 17:25:37 04/11/19 25 04/11/2024 CBC W Auto Diffe renti al panel - Blood platelets [#/volume] in blood by automated count 264 K/uL low: 140K/u Lhigh: 440K/u L Plate let Count 264 140 - 440 K/uL [facility] - [facility] Not Available Not Available 04/11/2024 17:25:37 04/11/19 25 04/11/2024 CBC W Auto Diffe renti al panel - Blood platelet mean volume [entitic volume] in blood by automated count 9.4 fL low: 6.8fLh igh: 10.4fL MPV 9.4 6.8 - 10.[address] - [facility] Not Available Not Available 04/11/2024 17:25:37 04/11/19 25 04/11/2024 CBC W Auto Diffe renti al panel - Blood neutrophils/ 100 leukocytes in blood by automated count 64.8 % low: 38.7%h igh: 74.5% Neutr ophil s % 64.8 38.7 - 74.5 % [facility] - [facility] Not Available Not Available 04/11/2024 17:25:37 04/11/19 25 04/11/2024 CBC W Auto Diffe renti al panel - Blood lymphocytes/ 100 leukocytes in blood by automated count 24.7 % low: 20%hig h: 54.3% Lymph ocyte % 24.7 20.0 - 54.3 % [facility] - [facility] Not Available Not Available 04/11/2024 17:25:37 04/11/19 25 04/11/2024 CBC W Auto Diffe renti al panel - Blood monocytes/10 0 leukocytes in blood by automated count 7.2 % low: 4.3%hi gh: 13.5% Monoc ytes % 7.2 4.3 - 13.5 % [facility] - [facility] Not Available Not Available 04/11/2024 17:25:37 04/11/19 25 04/11/2024 CBC W Auto Diffe renti al panel - Blood eosinophils/ 100 leukocytes in blood by automated count 2.4 % low: 0%high : 6% Eosin ophil s % 2.4 0.0 - 6.0 % [facility] - [facility] Not Available Not Available 04/11/2024 17:25:37 04/11/19 25 04/11/2024 CBC W Auto Diffe renti al panel - Blood basophils/10 0 leukocytes in blood by automated count 0.9 % low: 0%high : 3% Basop hil % 0.9 0.0 - 3.0 % [facility] - [facility] Not Available Not Available 04/11/2024 17:25:37 04/11/19 25 04/11/2024 CBC W Auto Diffe renti al panel - Blood neutrophils [#/volume] in blood by automated count 5.5 K/uL low: 1.8K/u Lhigh: 6.6K/u L Absol [place] Neutr ophil 5.5 1.8 - 6.6 K/uL [facility] - [facility] Not Available Not Available 04/11/2024 17:25:37 04/11/19 25 04/11/2024 CBC W Auto Diffe renti al panel - Blood lymphocytes [#/volume] in blood by automated count 2.1 K/uL low: 0.8K/u Lhigh: 3.3K/u L Absol [place] Lymph ocyte 2.1 0.8 - 3.3 K/uL [facility] - [facility] Not Available Not Available 04/11/2024 17:25:37 04/11/19 25 04/11/2024 CBC W Auto Diffe renti al panel - Blood monocytes [#/volume] in blood by automated count 0.6 K/uL low: 0.2K/u Lhigh: 1.2K/u L Absol [place] Monoc yte 0.6 0.2 - 1.2 K/uL [facility] - [facility] Not Available Not Available 04/11/2024 17:25:37 04/11/19 25 04/11/2024 CBC W Auto Diffe renti al panel - Blood eosinophils [#/volume] in blood by automated count 0.2 K/uL low: 0K/uLh igh: 0.5K/u L Absol [place] Eosin ophil 0.2 0.0 - 0.5 K/uL [facility] - [facility] Not Available Not Available 04/11/2024 17:25:37 04/11/19 25 04/11/2024 CBC W Auto Diffe renti al panel - Blood basophils [#/volume] in blood by automated count 0.1 K/uL low: 0K/uLh igh: 0.2K/u L Absol [place] Basop hil 0.1 0.0 - 0.2 K/uL [facility] - [facility] Not Available Not Available 04/11/2024 17:25:37 04/11/19 25 04/11/2024 CBC W Auto Diffe renti al panel - Blood nucleated erythrocytes /100 leukocytes [ratio] in blood by automated count 0 text: 0.0 - 0.4 /100 WBC Nucle ated RBC % 0.0 0.0 - 0.4 /[address] - [facility] Not Available Not Available 04/11/2024 17:25:37 04/11/19 25 04/11/2024 Compr Categoricalens edna metab olic 2000 panel - Serum or Plasm a protein [mass/volume ] in serum or plasma 7.5 g/dL low: 6.1g/d Lhigh: 8.4g/d L Total Prote in 7.5 6.1 - 8.4 g/dL [facility] - [facility] Not Available Not Available 04/11/2024 17:25:37 04/11/19 25 04/11/2024 Compr Categoricalens edna metab olic 1999 panel - Serum or Plasm a albumin [mass/volume ] in serum or plasma by bromocresol green (bcg) dye binding method 4.3 g/dL low: 3.5g/d Lhigh: 5.2g/d L Album in 4.3 3.5 - 5.2 g/dL [facility] - [facility] Not Available Not Available 04/11/2024 17:25:37 04/11/19 25 04/11/2024 Compr Categoricalens edna metab olic 2000 panel - Serum or Plasm a calcium [mass/volume ] in serum or plasma 9.3 mg/dL low: 8.6mg/ dLhigh : 10.3mg /dL Calci um 9.3 8.6 - 10.3 mg/dL [facility] - [facility] Not Available Not Available 04/11/2024 17:25:37 04/11/19 25 04/11/2024 Compr [employer] olic 1999 panel - Serum or Plasm a urea nitrogen [mass/volume ] in serum or plasma 17 mg/dL low: 7mg/dL high: 23mg/d L BUN 17 7 - 23 mg/dL [facility] - [facility] Not Available Not Available 04/11/2024 17:25:37 04/11/19 25 04/11/2024 Compr [employer] olic 1999 panel - Serum or Plasm a bilirubin.to clara [mass/volume ] in serum or plasma 0.25 mg/dL low: 0.2mg/ dLhigh : 1.4mg/ dL Total Bilir ubin 0.25 0.20 - 1.40 mg/dL [facility] - [facility] Not Available Not Available 04/11/2024 17:25:37 04/11/19 25 04/11/2024 Compr [employer] olic 1999 panel - Serum or Plasm a alkaline phosphatase [enzymatic activity/vol ume] in serum or plasma 53 text: 35 - 129 IU/L Alk Phos, Total 53 35 - 129 IU/L [facility] - [facility] Not Available Not Available 04/11/2024 17:25:37 04/11/19 25 04/11/2024 Compr [employer] olic 2000 panel - Serum or Plasm a aspartate aminotransfe rase [enzymatic activity/vol ume] in serum or plasma 19 text: 11 - 47 IU/L AST (SGOT ) 19 11 - 47 IU/L [facility] Not Available Not Available 04/11/2024 17:25:37 04/11/19 25 04/11/2024 Compr [employer] olic 2000 panel - Serum or Plasm a alanine aminotransfe rase [enzymatic activity/vol ume] in serum or plasma by no addition of P-5'-P 16 text: 6 - 53 IU/L ALT (SGPT ) 16 6 - 53 IU/L [facility] Not Available Not Available 04/11/2024 17:25:37 04/11/19 25 04/11/2024 Compr [employer] olic 2000 panel - Serum or Plasm a creatinine [mass/volume ] in serum or plasma 0.69 mg/dL low: 0.6mg/ dLhigh : 1.1mg/ dL Creat inine 0.69 0.60 - 1.10 mg/dL [facility] - [facility] Not Available Not Available 04/11/2024 17:25:37 04/11/19 25 04/11/2024 Compr Categoricalens edna metab olic 1999 panel - Serum or Plasm a sodium [moles/volum e] in serum or plasma 140 mmol/ L low: 135mmo l/Lhig h: 145mmo l/L Sodiu m 140 135 - 145 mmol/ L [facility] - [facility] Not Available Not Available 04/11/2024 17:25:37 04/11/19 25 04/11/2024 Compr Categoricalens edna metab olic 1999 panel - Serum or Plasm a potassium [moles/volum e] in serum or plasma 4.1 mmol/ L low: 3.3mmo l/Lhig h: 5.1mmo l/L Potas sium 4.1 3.3 - 5.1 mmol/ L [facility] - [facility] Not Available Not Available 04/11/2024 17:25:37 04/11/19 25 04/11/2024 Compr Categoricalens edna metab olic 1999 panel - Serum or Plasm a chloride [moles/volum e] in serum or plasma 104 mmol/ L low: 95mmol /Lhigh : 107mmo l/L Chlor gilson 104 95 - 107 mmol/ L [facility] - [facility] Not Available Not Available 04/11/2024 17:25:37 04/11/19 25 04/11/2024 Compr [employer] edna metab olic 1999 panel - Serum or Plasm a bicarbonate [moles/volum e] in serum or plasma 25 mmol/ L low: 21mmol /Lhigh : 29mmol /L CO2 Stephanie nt 25 21 - 29 mmol/ L [facility] - [facility] Not Available Not Available 04/11/2024 17:25:37 04/11/19 25 04/11/2024 Compr Categoricalens edna metab olic 1999 panel - Serum or Plasm a glucose [mass/volume ] in serum or plasma 93 mg/dL low: 64mg/d Lhigh: 99mg/d L Gluco se 93 64 - 99 mg/dL [facility] - [facility] Not Available Not Available 04/11/2024 17:25:37 04/11/19 25 04/11/2024 Compr malaika edna metab olic 2000 panel - Serum or Plasm a glomerular filtration rate/1.73 sq M.predicted among non-blacks [volume rate/area] in serum, plasma or blood by creatinine-b ased formula (MDRD) >90.0 text: >60.0 mL/min /1.73 m2 eGFR >90.0 >60.0 mL/mi n/1.[address] [facility] Not Available Not Available 04/11/2024 17:25:37 05/26/19 25 05/26/2024 COMP. METAB OLIC PANEL (14) glucose 79 mg/dL 70-99 Not Available [facility] ([facility]) [address] [place], [address], 05/28/2024 15:07:52 05/26/19 25 05/26/2024 COMP. METAB OLIC PANEL (14) BUN 20 mg/dL 6-24 Not Available [facility] ([facility]) [address] [place], [address], 05/28/2024 15:07:52 05/26/19 25 05/26/2024 COMP. METAB OLIC PANEL (14) creatinine 0.73 mg/dL 0.57-1 .00 Not Available [facility] ([facility] [address] [place], [address], 05/28/2024 15:07:52 05/26/19 25 05/26/2024 COMP. METAB OLIC PANEL (14) eGFR 101 mL/mi n/1.7 3 >59 Not Available [facility] ([facility]) [address] [place], [address], 05/28/2024 15:07:52 05/26/19 25 05/26/2024 COMP. METAB OLIC PANEL (14) BUN/creatini ne ratio 27 9-23 above high normal Not Available [facility] ([facility]) [address] [place], [address], 05/28/2024 15:07:52 05/26/19 25 05/26/2024 COMP. METAB OLIC PANEL (14) sodium 139 mmol/ L 134-14 4 Not Available [facility] ([facility]) [address] [place], [address], 05/28/2024 15:07:52 05/26/19 25 05/26/2024 COMP. METAB OLIC PANEL (14) potassium 4.8 mmol/ L 3.5-5. 2 Not Available [facility] ([facility]) [address] [place], [address], 05/28/2024 15:07:52 05/26/19 25 05/26/2024 COMP. METAB OLIC PANEL (14) chloride 104 mmol/ L 96-106 Not Available [facility] ([facility]) [address] [place], [address], 05/28/2024 15:07:52 05/26/19 25 05/26/2024 COMP. METAB OLIC PANEL (14) carbon dioxide, total 24 mmol/ L Not Available [facility] ([facility]) [address] [place], [address], 05/28/2024 15:07:52 05/26/19 25 05/26/2024 COMP. METAB OLIC PANEL (14) calcium 9.4 mg/dL 8.7-10 .2 Not Available [facility] ([facility]) [address] [place], [address], 05/28/2024 15:07:52 05/26/19 25 05/26/2024 COMP. METAB OLIC PANEL (14) protein, total 6.9 g/dL 6.0-8. 5 Not Available [facility] ([facility]) [address] [place], [address], 05/28/2024 15:07:52 05/26/19 25 05/26/2024 COMP. METAB OLIC PANEL (14) albumin 4.2 g/dL 3.9-4. 9 Not Available [facility] ([facility]) [address] [facility], [place], [address], 05/28/2024 15:07:52 05/26/19 25 05/26/2024 COMP. METAB OLIC PANEL (14) globulin, total 2.7 g/dL 1.5-4. 5 Not Available [facility] ([facility]) [address] [facility], [place], [address], 05/28/2024 15:07:52 05/26/19 25 05/26/2024 COMP. METAB OLIC PANEL (14) bilirubin, total <0.2 mg/dL 0.0-1. 2 Not Available [facility] ([facility]) [address] [facility], [place], [address], 05/28/2024 15:07:52 05/26/19 25 05/26/2024 COMP. METAB OLIC PANEL (14) alkaline phosphatase 44 IU/L 44-121 Not Available [facility] ([facility]) [address] [facility], [place], [address], 05/28/2024 15:07:52 05/26/19 25 05/26/2024 COMP. METAB OLIC PANEL (14) AST (SGOT) 17 IU/L 0-40 Not Available [facility] ([facility]) [address] [facility], [place], [address], 05/28/2024 15:07:52 05/26/19 25 05/26/2024 COMP. METAB OLIC PANEL (14) ALT (SGPT) 14 IU/L 0-32 Not Available [facility] ([facility]) [address] [facility], [place], [address], 05/28/2024 15:07:52 05/26/19 25 05/26/2024 CBC WITH DIFFE RENTI AL/PL ATELE T WBC 8.1 x10e3 /uL 3.4-10 .8 Not Available [facility] ([facility]) [address] [facility], [place], [address], 05/28/2024 15:07:54 05/26/19 25 05/26/2024 CBC WITH DIFFE RENTI AL/PL ATELE T RBC 4.12 x10e6 /uL 3.77-5 .28 Not Available [facility] ([facility]) [address] [facility], [place], [address], 05/28/2024 15:07:54 05/26/19 25 05/26/2024 CBC WITH DIFFE RENTI AL/PL ATELE T hemoglobin 12.5 g/dL 11.1-1 5.9 Not Available [facility] ([facility]) [address] [place], [address], 05/28/2024 15:07:54 05/26/19 25 05/26/2024 CBC WITH DIFFE RENTI AL/PL ATELE T hematocrit 38.2 % 34.0-4 6.6 Not Available [facility] ([facility]) [address] [place], [address], 05/28/2024 15:07:54 05/26/19 25 05/26/2024 CBC WITH DIFFE RENTI AL/PL ATELE T MCV 93 fL 79-97 Not Available [facility] ([facility]) [address] [place], [address], 05/28/2024 15:07:54 05/26/19 25 05/26/2024 CBC WITH DIFFE RENTI AL/PL ATELE T MCH 30.3 pg 26.6-3 3.0 Not Available [facility] ([facility]) [address] [place], [address], 05/28/2024 15:07:54 05/26/19 25 05/26/2024 CBC WITH DIFFE RENTI AL/PL ATELE T MCHC 32.7 g/dL 31.5-3 5.7 Not Available [facility] ([facility]) [address] [facility], [place], [address], 05/28/2024 15:07:54 05/26/19 25 05/26/2024 CBC WITH DIFFE RENTI AL/PL ATELE T RDW 12.6 % 11.7-1 5.4 Not Available [facility] ([facility]) [address] [facility], [place], [address], 05/28/2024 15:07:54 05/26/19 25 05/26/2024 CBC WITH DIFFE RENTI AL/PL ATELE T platelets 267 x10e3 /uL 150-45 0 Not Available [facility] ([facility]) [address] [facility], [place], [address], 05/28/2024 15:07:54 05/26/19 25 05/26/2024 CBC WITH DIFFE RENTI AL/PL ATELE T neutrophils 59 % notest ab. Not Available [facility] ([facility]) [address] [facility], [place], [address], 05/28/2024 15:07:54 05/26/19 25 05/26/2024 CBC WITH DIFFE RENTI AL/PL ATELE T lymphs 32 % notest ab. Not Available [facility] ([facility]) [address] [facility], [place], [address], 05/28/2024 15:07:54 05/26/19 25 05/26/2024 CBC WITH DIFFE RENTI AL/PL ATELE T monocytes 5 % notest ab. Not Available [facility] ([facility]) [address] [facility], [place], [address], 05/28/2024 15:07:54 05/26/19 25 05/26/2024 CBC WITH DIFFE RENTI AL/PL ATELE T eos 3 % notest ab. Not Available [facility] ([facility]) [address] [facility], [place], [address], 05/28/2024 15:07:54 05/26/19 25 05/26/2024 CBC WITH DIFFE RENTI AL/PL ATELE T basos 1 % notest ab. Not Available [facility] ([facility]) [address] [facility], [place], [address], 05/28/2024 15:07:54 05/26/19 25 05/26/2024 CBC WITH DIFFE RENTI AL/PL ATELE T neutrophils (absolute) 4.8 x10e3 /uL 1.4-7. 0 Not Available [facility] ([facility]) [address] [facility], [place], [address], 05/28/2024 15:07:54 05/26/19 25 05/26/2024 CBC WITH DIFFE RENTI AL/PL ATELE T lymphs (absolute) 2.6 x10e3 /uL 0.7-3. 1 Not Available [facility] ([facility]) [address] [place], [address], 05/28/2024 15:07:54 05/26/19 25 05/26/2024 CBC WITH DIFFE RENTI AL/PL ATELE T monocytes(ab solute) 0.4 x10e3 /uL 0.1-0. 9 Not Available [facility] ([facility]) [address] [facility], [place], [address], 05/28/2024 15:07:54 05/26/19 25 05/26/2024 CBC WITH DIFFE RENTI AL/PL ATELE T eos (absolute) 0.3 x10e3 /uL 0.0-0. 4 Not Available [facility] ([facility]) [address] [facility], [place], [address], 05/28/2024 15:07:54 05/26/19 25 05/26/2024 CBC WITH DIFFE RENTI AL/PL ATELE T baso (absolute) 0.1 x10e3 /uL 0.0-0. 2 Not Available [facility] ([facility]) [address] [place], [address], 05/28/2024 15:07:54 05/26/19 25 05/26/2024 CBC WITH DIFFE RENTI AL/PL ATELE T immature granulocytes 0 % notest ab. Not Available [facility] ([facility]) [address] [facility], [place], [address], 05/28/2024 15:07:54 05/26/19 25 05/26/2024 CBC WITH DIFFE RENTI AL/PL ATELE T immature grans (abs) 0.0 x10e3 /uL 0.0-0. 1 Not Available [facility] ([facility]) [address] [facility], [place], [address], 05/28/2024 15:07:54 05/26/19 25 05/28/2024 EBVCA (IGG/ M) ebv Ab vca, IgM <36.0 U/mL 0.0-35 .9 Negat edna <36.0 Equiv ocal 36.0 - 43.9 Posit edna >43.9 Not Available [facility] ([facility]) [address] [place], [address], 05/28/2024 15:07:55 05/26/19 25 05/28/2024 EBVCA (IGG/ M) ebv Ab vca, IgG >600.0 above high normal Negat edna <18.0 Equiv ocal 18.0 - 21.9 Posit edna >21.9 Not Available [facility] ([facility]) [address] [place], [address], 05/28/2024 15:07:55 05/26/19 25 05/25/2024 rapid strep group A, throa t Strep negati ve Not Available In-Office Order Internal Use Only DO Not Attach Compendium DO Not Attach Compendium, Do Not Delete/merge, [id number] 05/25/2024 13:33:49 05/26/19 25 05/25/2024 influ channing virus A + B + SARS- CoV-2 (COVI D19) Ag panel , rapid IA, upper respi rator y speci men Flu A negati ve Not Available In-Office Order Internal Use Only DO Not Attach Compendium DO Not Attach Compendium, Do Not Delete/merge, 05/25/2024 13:31:55 05/26/19 25 05/25/2024 influ channing virus A + B + SARS- CoV-2 (COVI D19) Ag panel , rapid IA, upper respi rator y speci men Flu B positi ve Not Available In-Office Order Internal Use Only DO Not Attach Compendium DO Not Attach Compendium, Do Not Delete/merge, 05/25/2024 13:31:55 05/26/19 25 05/25/2024 influ channing virus A + B + SARS- CoV-2 (COVI D19) Ag panel , rapid IA, upper respi rator y speci men Rapid SARS CoV 2 Ag, QL IA, respiratory specimen negati ve Not Available In-Office Order Internal Use Only DO Not Attach Compendium DO Not Attach Compendium, Do Not Delete/merge, 05/25/2024 13:31:55 06/12/19 25 06/11/2024 COLOG UARD cologuard result reportable NEGATI VE negati ve normal The Colog uard (TM) test was perfo rmed on this speci men. NEGAT EDNA TEST RESUL T. A negat edna Colog uard resul t indic ates a low likel ihood that a color ectal cance r (CRC) or advan frankie adeno ma (christina omato us polyp s with more advan frankie pre-m align ant featu res) is prese nt. The chanc e that a perso n with a negat edna Colog uard test has a color ectal cance r is less than 1 in 1500 (nega tive predi ctive value >99.9 %) or has an advan frankie adeno ma is less than 5.3% (nega tive predi ctive value 94.7% ). These data are based on a prosp ectiv e cross -sect ional study of 10,00 0 indiv idual s at [facility] risk for color ectal cance r who were scree ish with both Colog uard and colon oscop y. (Felisha Dave et al, N Engl J Med 2014; 370(1 4):12 86-12 97) The skip l value (refe rence range ) for this assay is negat edna. COLOG UARD RE-SC REENI NG RECOM MENDA TION: Perio dic color ectal cance r scree vibha is an impor tant part of preve ntive healt hcare for asymp tomat ic indiv idual s at [facility] risk for color ectal cance r. Follo wing a negat edna Colog uard resul t, the Ameri can Cance r Socie ty and U.S. Multi -Soci ety Task Force scree vibha guide lines recom mend a Colog uard re-sc reeni ng inter amanda of 3 years . Refer ences : Ameri can Cance r Socie ty Guide line for Color ectal Cance r Scree vibha: https ://artie w.can cer.o rg/ca ncer/ colon -rect al-ca ncer/ detec tion- diagn osis- stagi ng/ac s-rec ommen datio ns.ht ml.; Charan WRIGHT, Altagracia santizo CR, Ari KyleK, Color ectal Cance r Scree vibha: Recom menda tions for Physi cians and Patie nts from the U.S. Multi -Soci ety Task Force on Color ectal Cance r Scree vibha , Am J Gastr oente rolog y 2017; 112:1 016-1 030. TEST DESCR IPTIO N: [place] site algor ithmi c joann sis of stool DNA-b iomar kers with hemog lobin immun oassa y. Quant itati ve value s of indiv idual bioma rkers are not repor table and are not assoc iated with indiv idual bioma rker resul t refer ence range s. Colog uard is inten ded for color ectal cance r scree vibha of adult s of eithe r sex, 45 years or older , who are at [facility] for color ectal cance r (CRC) . Colog uard has been appro willie for use by the U.S. FDA. The perfo rmanc e of Colog uard was estab lishe d in a cross secti onal study of [facility] adult s aged 50-84 . Colog uard perfo rmanc e in patie nts ages 45 to 49 years was estim ated by sub-g roup joann sis of near- age group s. Colon oscop ies perfo rmed for a posit edna resul t may find as the most clini josesito signi kimberly t mickey n: color ectal cance r [4.0% ], advan frankie adeno ma (incl uding sessi le yoon yves polyp s great er than or equal to 1cm diame ter) [20%] or non- advan frankie adeno ma [31%] ; or no color ectal neopl diana [45%] . These estim ates are deriv ed from a prosp ectiv e cross -sect ional scree vibha study of 0 indiv idual s at [facility] risk for color ectal cance r who were scree ish with both Colog uard and colon oscop y. (Felisha Morales al, N Engl J Med 2014; 370(1 4):12 86-12 97.) Colog uard may produ ce a false negat edna or false posit edna resul t (no color ectal cance r or preca ncero us polyp prese nt at colon oscop y follo w up). A negat edna Colog uard test resul t does not guara ntee the absen ce of CRC or advan frankie adeno ma (pre- cance r). The curre nt Colog uard scree vibha inter amanda is every 3 years . (Amer ican Cance r Socie ty and U.S. Multi -Soci ety Task Force ). Colog uard perfo rmanc e data in a 0 patie nt pivot al study using colon oscop y as the refer ence metho d can be acces sed at the follo wing locat ion: www.e xactl abs.c om/re martha . Addit ional descr iptio n of the Colog uard test proce ss, warni ngs and preca ution s can be found at www.c rosaura emerson.c om. Not Available [facility] (Cologuard Orders Only) [address], [place], [address], 06/19/2024 11:47:58 06/15/19 25 06/15/2024 IGP,A PTIMA HPV,A GE GDLN age gdln acog testing 30-65 Not Available [facility] ([facility]) [address] [facility], [place], [address], 06/19/2024 14:26:12 06/15/19 25 06/18/2024 IGP, APTIM A HPV, RFX 16/18 ,45 HPV aptima Negati ve negati ve This nucle ic acid ampli ficat ion test detec ts fourt een high- risk HPV types (16,1 8,31, 33,35 ,39,4 5,51, 52,56 ,58,5 9,66, 68) witho ut diffe renti ation . Not Available [facility] ([facility]) [address] [facility], [place], [address], 06/19/2024 14:26:13 06/15/19 25 06/19/2024 IGP, APTIM A HPV, RFX 16/18 ,45 diagnosis: Commen t NEGAT EDNA FOR INTRA EPITH ELIAL LESIO N OR LORAINE DRIVER . Not Available [facility] ([facility]) [address] [facility], [place], [address], 06/19/2024 14:26:13 06/15/19 25 06/19/2024 IGP, APTIM A HPV, RFX 16/18 ,45 specimen adequacy: Commen t Satis facto ry for evalu ation . Not Available [facility] ([facility]) [address] [place], [address], 06/19/2024 14:26:13 06/15/19 25 06/19/2024 IGP, APTIM A HPV, RFX 16/18 ,45 clinician provided ICD10: Jacinda marlow Z01.4 19 Not Available [facility] ([facility]) [address] [place], [address], 06/19/2024 14:26:13 06/15/19 25 06/19/2024 IGP, APTIM A HPV, RFX 16/18 ,45 performed by: Jacinda ramsey, Cytol ogist (ASCP ) Not Available [facility] ([facility]) [address] [place], [address], 06/19/2024 14:26:13 06/15/19 25 06/19/2024 IGP, APTIM A HPV, RFX 16/18 ,45 . . Not Available [facility] ([facility]) [address] [place], [address], 06/19/2024 14:26:13 06/15/19 25 06/19/2024 IGP, APTIM A HPV, RFX 16/18 ,45 note: Jacinda marlow The Pap smear is a scree vibha test desig ish to aid in the detec tion of frederic ligna nt and malig nant condi tions of the uteri ne cervi x. It is not a diagn ostic proce dure and shoul d not be used as the sole means of detec ting cervi david cance r. Both false -posi tive and false -nega tive repor ts do occur . Not Available [facility] ([facility]) [address] [place], [address], 06/19/2024 14:26:13 06/15/19 25 06/19/2024 IGP, APTIM A HPV, RFX 16/18 ,45 test methodology: Commen t This liqui d based ThinP rep(R ) pap test was candis deng with the use of an image guide darlyn villa Not Available [facility] ([facility]) [address] [facility], [place], [address], 06/19/2024 14:26:13 06/15/19 25 06/19/2024 IGP, APTIM A HPV, RFX 16/18 ,45 HPV genotype reflex Commen t Crite marlee not met, HPV Genot ype not perfo rmed. Not Available [facility] ([facility]) [address] [facility], [place], [address], 06/19/2024 14:26:13 08/17/19 24 08/16/2023 MAMMO , scree vibha, digit al, bilat eral No observ ation record ed. [email or web address] [facility] [address] [place] [address], [address], 04/12/2024 09:26:43 02/28/20 24 08/16/2022 MAMMO , scree vibha, digit al, bilat eral No observ ation record ed. BARCODE Not Available 2023 18:02:42 02/28/20 24 08/18/2016 colon oscop y proce dure (PROC ) No observ ation record ed. [email or web address] Not Available 2024 09:27:43 05/26/19 25 05/25/2024 XR, chest , 2 view No observ ation record ed. [facility] [address], [place], [address], 05/25/2024 18:33:23 Result Notes None recorded. Problems Name Problem SNOMED Code Status Onset Date Resolution Date Notes Provider Name and Address Organization Details Recorded Time Long-term drug therapy Active 2023 HANNAH Rodriguez Attn: Sree g,[address] [facility], [place], [address], [facility] 06/30/202 4 01:39:14 Seronegative rheumatoid arthritis 328138348 Active 2023 HANNAH Rodriguez Attn: Sree st,[address] [facility], [place], [address], [place] [facility] 4 01:39:15 Hypothyroidism 13238111 Active 2023 HANNAH Rodriguez Attn: Sree st,[address] [facility], [place], [address], [place] [facility] 4 01:39:27 Body mass index 20-24 - normal 108505428 Active 2024 Bebeto Goyal MA null, [place] - [facility] 5 09:13:09 Anxiety 54289671 Active 2024 HANNAH Rodriguez Attn: Sree st,[address] [facility], [place], [address], [place] - [facility] 5 09:31:14 Problem Notes None recorded. Procedures Surgical History Date Name Laterality Status Provider Name and Address Organization Details Recorded Time Knee Surgery completed Bebeto Goyal [place] [facility] 08/03/2023 15:06:41 excision of bilateral fallopian tubes and ovaries completed HANNAH MARTINEZ Attn: Accounting,[address] [facility], [place], [address], [place] [facility] 06/19/2024 08:19:01 section completed HANNAH MARTINEZ Attn: Accounting[address] [place], [address], [place] - [facility] 06/19/2024 08:18:50 Imaging Results Imaging Date Name Status [facility] Details LastModified Time 08/16/2023 MAMMO, screening, digital, bilateral completed [email or web address] [facility] [address] [place] [address], [address], 04/12/2024 09:26:43 08/16/2022 MAMMO, screening, digital, bilateral completed BARCODE Information not available 02/28/2024 18:02:42 08/18/2016 colonoscopy procedure (PROC) completed [email or web address] Information not available 04/12/2024 09:27:43 05/25/2024 XR, chest, 2 view completed [facility] [address], [place], [address], 05/25/2024 18:33:23 Procedure Notes None recorded. Medical Equipment None Reported. Allergies Allergen ID Allergen Name Allergen Category Reaction Reaction Severity Criticality Documentation Date Start Date Code Code System Note Provider Name and Address Organization Details Recorded Time 991181 Levaquin medicatio n hives Not available Not available 08/03/2023 47018 2 RxNorm HALEY Soriano, [place] - [facility] 4 14:58:18 644172 Cipro medicatio n anaphylax is Not available Not available 08/03/2023 87216 3 RxNorm HALEY [place], [place] - [facility] 4 15:05:43 864456 ciproflox acin medicatio n anaphylax is Not available [facility] 06/13/2024 2551 RxNorm Eryn Gonzalez MA null, [place] - [facility] 5 14:49:38 Medications Name Sig Start Date Stop Date Status Note LastModified by Organization Details LastModified Time sulfasala zine 500 mg tablet TAKE 3 TABLETS BY MOUTH TWICE DAILY 08/02 completed Not Available Not Available Not Available azithromy mikayla 250 mg tablet TAKE 2 TABLETS BY MOUTH ON DAY 1, AND THEN TAKE 1 TABLET BY MOUTH ONCE A DAY ON DAY 2 THROUGH DAY 5 04/02 completed Not Available Not Available Not Available fluconazo le 150 mg tablet Take by oral route for 6 days. 2024 active Not Available Not Available Not Avai lable levothyro xine 75 mcg tablet Take 1 tablet every day by oral route for 30 days. 04/12 completed pt stopped Not Available Not Available Not Available alprazola m 0.25 mg tablet TAKE 1 TABLET BY MOUTH THREE TIMES DAILY NEEDED active Not Available Not Available No t Available methotrex ate sodium 2.5 mg tablet TAKE 8 TABLETS BY MOUTH ONCE A WEEK active Not Available Not Available No t Available oseltamiv ir 75 mg capsule Take 1 capsule twice a day by oral route for 5 days, for flu B. active Not Available Not Available No t Available folic acid 1 mg tablet TAKE 1 TABLET BY MOUTH ONCE DAILY active Not Available Not Available No t Available ondansetr on 4 mg disintegr ating tablet DISSOLVE 1 TABLET ON THE TONGUE EVERY 6 HOURS NEEDED FOR NAUSEA active Not Available Not Available No t Available levothyro xine 112 mcg tablet TAKE 1 TABLET BY MOUTH ONCE DAILY 08/02 completed Not Available Not Available Not Available amoxicill in 875 mg-potass ium clavulana te 125 mg tablet TAKE 1 TABLET BY MOUTH EVERY 12 HOURS active Not Available Not Available No t Available Inflectra 100 mg intraveno us solution Inject by intraven ous route. active every 6 weeks Not Available Not Available Not Available Vitals Date Recorded Body height Body mass index (BMI) Body weight Respiratory rate Oxygen saturation Oxygen saturation in Arterial blood by Pulse oximetry Heart rate Systolic blood pressure Diastolic blood pressure Provider Name and Address Organization Details Last Updated DateTime 4 160.02 cm 23.9 kg/m2 31242.9 7 g 20 /min 99 % 99 % 93 /min 132 mm[Hg] 88 mm[Hg] Bebeto Goyal MA [facility] 4 15:02:10 Date Recorded Body height Body mass index (BMI) Body weight Oxygen saturation Oxygen saturation in Arterial blood by Pulse oximetry Heart rate Systolic blood pressure Diastolic blood pressure Provider Name and Address Organization Details Last Updated DateTime 5 160.02 cm 24.8 kg/m2 82080.9 3 g 100 % 100 % 73 /min 130 mm[Hg] 82 mm[Hg] Bebeto Goyal MA [facility] 5 09:14:39 Date Recorded Respiratory rate Provider Name a nd Address Organization Details Last Updated DateTime 04/12/2024 16 /min HANNAH Rodriguez Attn: [address]ing,[address] [place], [address], [facility] 04/12/2024 09:34:50 Date Recorded Body height Body mass index (BMI) Body weight Oxygen saturation Oxygen saturation in Arterial blood by Pulse oximetry Heart rate Respiratory rate Systolic blood pressure Diastolic blood pressure Provider Name and Address Organization Details Last Updated DateTime 5 160.02 cm 24.4 kg/m2 72121.7 5 g 100 % 100 % 55 /min 16 /min 130 mm[Hg] 82 mm[Hg] Bebeto Goyal MA [facility] 5 12:33:59 Date Recorded Body height Body mass index (BMI) Body weight Heart rate Oxygen saturation Oxygen saturation in Arterial blood by Pulse oximetry Systolic blood pressure Diastolic blood pressure Provider Name and Address Organization Details Last Updated DateTime 5 160.02 cm 25 kg/m2 78581.6 2 g 78 /min 98 % 98 % 139 mm[Hg] 66 mm[Hg] Eryn Gonzalez MA [facility] 5 16:14:52 Social History Question Answer Notes LastModified by Organizat ion Details LastModified Time Tobacco Smoking Status Never Smoker Bebeto Goyal MA null, [facility] 08/03/2023 14:59:55 Do You Have An Advance Directive? No Information not available 08/03/2023 What Is Your Level Of Alcohol Consumption? None Information not available 08/03/2023 Are You Blind Or Do You Have Difficulty Seeing? No Glasses Information not available 08/03/2023 What Is Your Level Of Caffeine Consumption? Occasional Information not available 08/03/2023 In The 14 Days Before Symptom Onset, Have You Had Close Contact With A Laboratory-confir med COVID-19 While That Case Was Ill? No Information not available 08/02/2023 In The 14 Days Before Symptom Onset, Have You Had Close Contact With A Person Who Is Under Investigation For COVID-19 While That Person Was Ill? No Information not available 08/02/2023 Have You Been To An Area Known To Be High Risk For COVID-19? No Information not available 08/02/2023 Are You Currently Employed? Yes Information not available 04/12/2024 Are You Deaf Or Do You Have Serious Difficulty Hearing? No Information not available 08/03/2023 What Type Of Diet Are You Following? REGULAR Low Carb Information not available 08/03/2023 Are There Any Guns Present In Your Home? No Information not available 08/03/2023 What Was The Date Of Your Most Recent Tobacco Screening? 05/25/2024 Information not available 05/25/2024 What Is Your Relationship Status? Information not available 08/03/2023 Do You Use Your Seat Belt Or Car Seat Routinely? Yes Information not available 08/02/2023 Do You Have Smoke And Carbon Monoxide Detectors In Your Home? Yes Information not available 08/02/2023 Do You Feel Stressed (tense, Restless, Nervous, Or Anxious, Or Unable To Sleep At Night)? [id number] Information not available 04/12/2024 Do You Use Any Illicit Or Recreational Drugs? No Information not available 08/03/2023 Do You Use Sunscreen Routinely? Yes Information not available 08/03/2023 Has Tobacco Cessation Counseling Been Provided? Yes Information not available 08/02/2023 On What Date Was Tobacco Cessation Counseling Provided? 05/25/2024 Information not available 05/25/2024 Do You Or Have You Ever Used Any Other Forms Of Tobacco Or Nicotine? No Information not available 08/03/2023 Sex: Female Functional Status Question Answer Note LastModified by Organization D etails LastModified Time Are you able to care for yourself? Yes Information not available 08/02/2023 What is your exercise level? Moderate Information not available 08/03/2023 Mental Status None recorded. Family History Relationship Description Onset Age of this Age Resolved Age Notes LastModified by Organization Details LastModified Time Mother Harmful pattern of use of alcohol [email or web address] Not available 2023 15:07:13 Sister Malignant tumor of breast 37 [email or web address] Not available 2024 16:37:23 Sister Amyloidosis [email or web address] Not avail able 08/03/2023 15:07:30 Medical History Condition Response Coronary Artery Disease N Other N High Blood Pressure N Atrial Fibrillation N Kidney or Bladder Problems N Thyroid Problems Y GI Problems N Depression N COPD N Blood Clots N Skin Problems N Anemia Y Heart Attack (ND) N Anxiety Disorder Y Diabetes N Muscle, Joint, or Bone Problems N Seizures/Epilepsy N Acid Reflux (GERD) N Cancer N Stroke N Asthma N Allergies N High Cholesterol N Hepatitis N Liver Disease N Headaches N Heart Failure N Osteoporosis N Gynecological History Statement/Question Response Menses Monthly N Duration of Flow (days) Obstetrics History GPAL:G 3 P 0 0 0 3 Type Value Full Term 0 Induced 0 Spontaneous 0 Premature 0 Living 3 Total 3 Immunizations Vaccine Type Date Status Note Provider Nam e and Address Organization Details Recorded Time zoster recombinant 06/04/2020 completed H[place], [place] - [facility] 04/12/2024 09:11:49 COVID-19, mRNA, LNP-S, PF, 30 mcg/0.3 mL dose 03/12/2020 [place] [facility] 04/12/2024 09:11:49 COVID-19, mRNA, LNP-S, PF, 30 mcg/0.3 mL dose 10/15/2020 [place] [facility] 04/12/2024 09:11:49 COVID-19, mRNA, LNP-S, PF, 30 mcg/0.3 mL dose 02/20/2020 [place] [facility] 04/12/2024 09:11:49 Influenza, MDCK, trivalent, PF 12/20/2023 completed HALEY [place] [facility] 06/13/2024 14:49:52 Past Encounters Encounter ID Performer Location Encounter Start Date Encounter Closed Date Diagnosis/Indication Diagnosis SNOMED-CT Code Diagnosis ICD10 Code Diagnosis Note [id number] Genaro Hamilton MD [facility] [facility] [address] [place] [address] 08/03/2023 14:29:59 08/29/2023 15:18:10 Adult health examination 076303906 Z00.00 annual wellness completed Hypothyroidism 79583628 E03.9 refill on levothyrox ine 75mcg daily. due for TFT panel. Seronegati ve rheumatoid arthritis 205503789 M06.00 stable on MTX weekly dosing. followed by specialist . Long-term drug therapy 492947760 Z79.861 [id number] Genaro Hamilton MD [facility] [employer] [address] [place] [address] 04/12/2024 09:04:07 04/12/2024 14:36:13 Body mass index 20-24 - normal 146292826 Z68.24 BMI 24.8 Hypothyroidism 30939938 E03.9 pt is now off levothyrox ine. she stopped medication 6 months ago. her labs are all normal still off medication . Seronegati ve rheumatoid arthritis 874397232 M06.00 stable on MTX weekly dosing. followed by specialist . Long-term drug therapy 764409241 Z79.899 Labs are up-to-date Alteration in heart rate 185932511 R00.9 Refer for a 14 day Holter monitor Anxiety 26219577 F41.9 very mild anxiety, uses alprazolam 4-5 times per week. Screening for malignant neoplasm of colon 602266955 Z12.11 Patient opts for Cologuard screening method [id number] Genaro Hamilton MD [facility] [employer] [address] [place] [address] 05/25/2024 12:22:06 05/25/2024 14:46:31 Low grade pyrexia 776076180 R50.9 Check chest x-ray to rule out walking pneumonia, check CBC, CMP and mono studies to evaluate for acute EBV infection. Patient has been sick for a few weeks at this point and is at high-risk for not only viral but bacterial infection also Upper resp iratory infection 20077660 J06.9 Start bacterial coverage with Augmentin therapy as directed with fluconazol e empiric dosing Influenza caused by Influenza B virus 06521909 J10.1 Patient ended up testing positive for influenza B on swab today in the office. We will also send out Tamiflu 5 day course Cough 29315182 R05.9 Influenza B positive, COVID negative Sore throat 184993070 J0 2.9 Strep negative on on swab [id number] Gorge Lake MD [facility] [address] [place] [address] 06/14/2024 16:08:55 06/14/2024 17:29:13 Gynecologic examination 81238053 Z01.419 Pap obtainedCB E performedB reast education providedma mmogra due in July 2024 Overweight 395437092 E66 .3 Family his tory of breast cancer 333691845 Z80.3 Patient's sister had breast cancer in her 30s. Patient completed mammogram July 2023. Health Concerns Section Related Observation LastModified by Organization Detai ls LastModified Time None Recorded Concern Status LastModified by Organization Details LastModified Time None Recorded Advance Directives Directive N: Payers Encounter Date Sequence Insurance Name Policy Number Policy [place] Covered Member ID [place] Member ID Guarantor Name 08/03/2023 1 [facility] [id number] Crystal KIS [employer]elsmann [id number] Crystal Huelsmann 04/12/2024 1 [facility] [id number] Crystal [employer] [id number] Crystal Huelsmann 05/25/2024 1 [facility] [id number] Crystal [employer] [id number] Crystal Huelsmann 06/14/2024 1 [facility] [id number] Crystal [employer] [id number] Crystal Bib + Tuckmann Notes Date Note Type Note Provider Name and Address Organization Details Recorded Time 4 text/html ThyroidReported bypatient.Notes:pt is taking levothyroxine 75mcg daily. stable. due for labs. Seronegative Rheumatoid arthritis. pt has specialist she is managed by. she is taking MTX weekly. HANNAH Rodriguez Attn: Accounting,[address] [place], [address], [facility] [place] 08/28/2023 01:39:53 5 text/html Anxiety/DepressionReported bypatient.Notes:Patient has alprazolam 0.25 mg that she uses on an as-needed basis. She is stable no acute complaints or concernsThyroidReported bypatient.Notes:pt is taking levothyroxine 75mcg daily. stable. Labs are up-to-date Seronegative Rheumatoid arthritis. pt has specialist she is managed by. she is taking MTX weekly. Patient reports she does have some fluctuations in her heart rate going lower at times and then going higher at times. She is interested in having this evaluated. Colon screening is due HANNAH Rodriguez Attn: Accounting,[address] [facility], [place], [address], [place] [facility] 04/29/2024 12:30:26 5 text/html Upper Respiratory SymptomsReported bypatient.Notes:cough , body aches, headaches, low grade fever, severe congestion in head. taking OTC meds. HANNAH Rodriguez Attn: Accounting,[address] [facility], [place], [address], [facility] [place] 06/04/2024 00:53:58 5 text/html Crystal is F here for pap cesarian 1995vbac 99cesarian fallopian tube excision 2007 LMP: May 28, 2024 , irregularLast Pap: 9+ yearsLast mammogram: ontraception: noneSTI hx:noneFam hx: breast cancer in sister age 37 (unknown type) denies: cervical, uterine, ovarian cancers HANNAH MARTINEZ Attn: Accounting,[address] [facility], [place], [address], [facility] [place] 06/19/2024 08:21:34 OBGyn Episode No OBEpisode recorded.
--- OUTSIDE RECORDS SUMMARY | 2024-07-04 10:12 | XMS_ITS | Encounter Summary ---
Author Organization [facility] Healthcare Address [address] [place] [address] Care Team Providers Care Bus Info Consultant Name Role Phone Gisele Medina Primary Care Pr ovider Rosita Aguilera MD Unavailable [phone] Encounter Details Date Type Department Care Team (Late st Contact Info) Description 12/24/2019 Orders Only [facility] Health Information Management [address] [place] [address] Scanning, Provider Social History Tobacco Use Types Packs/Day Years Used Date Smoking Tobacco: Never Smokeless Tobacco: Never Alcohol Use Standard Drinks/Week Comments Not Currently 0 (1 standard drink = 0.6 oz pur e alcohol) Comments Unknown Sex and Gender Information Value Date Recorded Sex Assigned at Not on file Legal Sex Female 11:57 PM TANK BUILDER SUPERVISOR Gender Identity Not on file Sexual Orientation Not on file documented as of this encounter Plan of Treatment Not on file documented as of this encounter Procedures Procedure Name Priority Date/Time Associated Diagnosis Comments SCAN - OTHER ORDERS 12/24/2019 documented in this encounter Results * SCAN - OTHER ORDERS (12/24/2019) us Provider Scanning Final Result documented in this encounter Visit Diagnoses Not on filedocumented in this encounter Additional Health Concerns Infection Onset Date Last Indicated Resolved Time COVID: Suspected 01/21/2020 01/21/2020 01/22/2020 3:42 AM TANK BUILDER SUPERVISOR Respiratory Infection (SHREYAS), contact + droplet Comment:Automatically added due to negative COVID-19 result. 01/22/2020 01/22/2020 02/05/2020 3:0 6 AM TANK BUILDER SUPERVISOR COVID: Suspected 04/22/2020 04/22/2020 04/23/2020 5:43 AM TANK BUILDER SUPERVISOR COVID: Suspected 10/29/2020 10/29/2020 10/29/2020 5:33 PM CDT COVID: Suspected 12/02/2020 12/02/2020 12/02/2020 11:13 PM CDT COVID: Suspected 03/03/2021 03/03/2021 03/03/2021 3:39 PM TANK BUILDER SUPERVISOR COVID: Suspected 03/03/2021 03/03/2021 03/04/2021 9:05 PM TANK BUILDER SUPERVISOR COVID: Suspected 03/13/2021 03/14/2021 03/14/2021 10:11 PM TANK BUILDER SUPERVISOR COVID: Suspected 03/19/2021 03/19/2021 03/20/2021 12:54 AM TANK BUILDER SUPERVISOR COVID19 03/19/2021 03/19/2021 03/29/2021 3:05 AM TANK BUILDER SUPERVISOR COVID: Recovered Comment:Added based on recent COVID infection. 03/29/2021 03/31/2021 07/27/2021 3:05 AM C DT COVID: Suspected 01/01/2022 01/01/2022 01/02/2022 3:06 AM CDT COVID: Suspected 01/01/2022 01/01/2022 01/02/2022 8:59 AM CDT COVID: Suspected 07/02/2022 07/02/2022 07/02/2022 11:33 PM CDT COVID: Suspected 11/24/2022 11/24/2022 11/24/2022 3:44 PM CDT COVID: Suspected 05/18/2024 05/18/2024 05/18/2024 3:54 PM CDT documented as of this encounter Care Teams Bus Info Consultant Relationship Specialty Start Date End Date Gisele Medina PA PCP - General 09/16/16 Rosita Aguilera MD [address] [place] [address] Medical Oncologist/Skiver Uppers Or Linings Hematology 04/30/20 documented as of this encounter
--- OUTSIDE RECORDS SUMMARY | 2024-07-04 10:12 | XMS_ITS | Continuity of Care Document ---
Author Organization [facility] Address [address] [place] [address] [address] [place] [address] Phone Care Team Providers Care Heater Planer Operator Name Role Phone Lawrence OD, Vic Unavailable Unavailable Procedures Procedure Date Eye Exam Established Pt Advance Directives Directive Yes / No Effective Date File Name No Information Encounters Encounter Description Practice Location Reason(s) For Visit Diagnoses Date Provider Providers Copied on Encounter [facility], [id number] [place] [address] [address], [place], [place], [id number], [place] tel:[phone] [facility] No Information [phone] Lawrence OD Vic. [address] , [address], [place], [address], [place]. tel:[phone] Family History Family Member Type Diagnosis Age At Onset No Information Payers Payer name Insurance type Covered green party ID Authoriza corine(s) [facility] [id number] Social History Type Description Quantity Date Captured Comments Sex Female Smoking Status No Information Chief Complaint And Reason For Visit No Information Reason For Referral Reason For Referral No Information History Of Present Illness Encounter Date Complaint History Of Prese nt Illness No Information Functional Status Date Functional Assessmen t No Information Instructions Date Instruction Additional Infor mation No Information Assessments Type Assessment Date No Information Patient Care Teams Name Effective Dates (start - stop) Status Members No Information
[2024-07-04 10:19] LABS: Alanine Aminotransferase 20 U/L (6-35); Albumin Level 4.3 g/dL (3.5-5.1); Alkaline Phosphatase 63 U/L (38-126); Anion Gap 8 mmol/L (4-12); Aspartate Amino Transferase 23 U/L (14-36); Bilirubin,Total 0.8 mg/dL (0.2-1.3); Blood Urea Nitrogen 21 mg/dL (7-17); Calcium 8.9 mg/dL (8.4-10.2); Carbon Dioxide 26 mmol/L (22-30); Chloride 104 mmol/L (98-107); Estimated CRCL calculation 66 ml/min; Estimated Glomerular Filt Rate > 60; Glucose 108 mg/dL (65-110); Lipase 60 U/L (23-300); Potassium 4.4 mmol/L (3.4-5.0); Sodium 138 mmol/L (137-145)
[2024-07-04 10:31] VITALS: BP 108/55; PULSE 79; RESP 14; O2SAT 100
--- OUTSIDE RECORDS SUMMARY | 2024-07-04 10:38 | XMS_ITS | Clinical Summary ---
Author Organization [facility] Address [address] [place] [address] Care Team Providers Care Net Repairer Name Role Phone Pilardavin Gisele YOUNG Primary Care Pr ovider Rosita Aguilera MD Unavailable [phone] Allergies Active Allergy Reactions Criticality Noted Date [...] 04/02/2020 Assessment & Plan (04/02/2020 1:35 PM SUPERVISOR SLITTING AND SHIPPING): Mild. Suspect was worse last 2 mornings. [...] 09/15/2017 Assessment & Plan (04/02/2020 1:34 PM SUPERVISOR SLITTING AND SHIPPING): Monitor. Mild ocular HTN, chronic. Has follow [...] Team Description 06/14/2024 8:00 AM CDT Infusion [facility] Infusion Therapy [address] [place] [address] 5th [place] [address] [place] [address] Long-term current use of high risk medication other than anticoagulant (Primary Dx) 05/18/2024 9:45 AM CDT Clinical Support [facility] Medical Group [facility] at [address] [address] Encounter for screening for COVID-19 [Z11.52] (Primary Dx) 05/18/2024 9:39 AM CDT - 05/18/2024 11:59 PM CDT Hospital Encounter [facility] [address] [place] [address] Respiratory illness; Fever, unspecified fever cause; Cough, unspecified type; Body aches; Nonintractable headache, unspecified chronicity pattern, unspecified headache type; Sore throat; Nasal congestion; Runny nose; Fatigue, unspecified type Discharge Disposition: Discharge to home or self care 05/17/2024 1:00 PM CDT Telemedicine [facility] Psychiatry [address] [facility] 2nd [address] [place] [address] Leandra Yanez, CHIEF EXECUTIVE OR MANAGING DIRECTOR Adjustment disorder with depressed mood in remission (Primary Dx) 05/10/2024 Telephone [facility] Cardiology [address] [facility] 8th [place] [address] [place] [address] Anand Portillo New Patient 05/03/2024 1:00 PM SUPERVISOR SLITTING AND SHIPPING Infusion [facility] Infusion Therapy [address] [facility] [address] 5th [place] [address] [place] [address] Long-term current use of high risk medication other than anticoagulant (Primary Dx) 04/19/2024 9:00 AM SUPERVISOR SLITTING AND SHIPPING Office Visit [facility] Psychiatry [address] [facility] [facility] [address] [place] [address] Leandra Yanez, CHIEF EXECUTIVE OR MANAGING DIRECTOR Adjustment disorder with depressed mood in remission (Primary Dx) 04/11/2024 10:15 AM SUPERVISOR SLITTING AND SHIPPING Lab [facility] Endocrinology Metabolism and Lipid [address] [facility] 5th [place] [address] [place] [address] Rheumatoid arthritis of multiple sites with negative rheumatoid factor (HCC) 04/11/2024 9:40 AM SUPERVISOR SLITTING AND SHIPPING Office Visit [facility] Rheumatology [address] [facility] 5th [place] [address] [place] [address] Denisa Izaguirre MD Rheumatoid arthritis of multiple sites with negative rheumatoid factor (HCC) (Primary Dx); Encounter for long-term (current) use of high-risk medication from Last 3 Months Immunizations Immunization Administration Dates Next Due Influenza, Trivalent, Cell C ulture-based MDCK, Preservative Free, Antibiotic Free, Intramuscular 12/20/2023 ZOSTER Recombinant 06/04/2020 Surgical History Surgery Date Site/Laterality Comments KIDNEY SURGERY Kidney Surgery - (Added by TW Conv) [place] DELIVERY ONLY Section - (Added by TW Conv) [place] TYMPANOPLASTY W/O MASTOID ECT W/O OSSICLE RECNSTJ [...] on file Legal Sex Female 11:57 PM SUPERVISOR SLITTING AND SHIPPING Gender Identity Not on file Sexual Orientation Not on file Obstetrics History Last Filed Vital Signs Vital Sign Reading Time Taken Comments Blood Pressure 130/83 06/14/2024 8:01 AM CDT Pulse 69 06/14/2024 8:01 AM CDT Temperature 36.4 C (97.6 F) 04/11/2024 9:37 AM SUPERVISOR SLITTING AND SHIPPING Respiratory Rate 14 06/14/2024 8:01 AM CDT Oxygen Saturation 100% 05/03/2024 1:13 PM SUPERVISOR SLITTING AND SHIPPING Inhaled Oxygen Concentration - - Weight 62.6 kg (138 lb) 05/03/2024 12:40 PM SUPERVISOR SLITTING AND SHIPPING Height 157.5 cm (5' 2 ) 04/11/2024 9:37 AM SUPERVISOR SLITTING AND SHIPPING Body Mass Index 25.24 04/11/2024 9:37 AM SUPERVISOR SLITTING AND SHIPPING Plan of Treatment Health Maintenance Due Date [...] COMPREHENSIVE METABOLIC PANEL Routine 04/11/2024 10:15 AM SUPERVISOR SLITTING AND SHIPPING Rheumatoid arthritis of multiple sites with negative rheumatoid factor (HCC) CBC WITH AUTO DIFFERENTIAL Routine 04/11/2024 10:15 AM SUPERVISOR SLITTING AND SHIPPING Rheumatoid arthritis of multiple sites with negative [...] Negative Negative Influenza A RNA Negative Negative [facility] Influenza B RNA Negative Negative [facility] RSV RNA Negative Negative [facility] Comment: Interpretive data: Testing performed by [facility]. This test is performed using the [employer] Xpert Xpress CoV-2/Flu/RSV plus assay. This is a multiplex, real-time reverse transcriptase PCR assay intended for the qualitative detection of nucleic acid from SARS-CoV-2, influenza A, influenza B, and respiratory syncytial virus. This assay has been cleared by the [place] Food and Drug administration. The performance characteristics have been verified by the [facility]. Results must be considered in the clinical context, and a negative result does not rule out infection. 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 Fever, cough, shortness of breath)?->Yes Reason for testing?->Symptomatic Is the Patient experiencing symptoms consistent with COVID?->Yes Taras Rivera MD LAB MICROBIOLOGY - NERAL ORDERABLES Final Result [facility] [address] Department [place] [address] * CBC with auto differential (04/11/2024 10:15 AM SUPERVISOR SLITTING AND SHIPPING) [facility] White Blood Count 8.5 3.6 - 11.2 [...] - [facility] Blood 04/11/2024 10:1 5 AM SUPERVISOR SLITTING AND SHIPPING 04/11/2024 11:06 AM SUPERVISOR SLITTING AND SHIPPING us Denisa Izaguirre MD LAB BLOOD ORDERABLES Final Result [facility] * Comprehensive metabolic panel (04/11/2024 10:15 AM SUPERVISOR SLITTING AND SHIPPING) Pathologist [facility] Total Protein 7.5 6.1 - 8.4 g/dL [...] - [facility] Blood 04/11/2024 10:1 5 AM SUPERVISOR SLITTING AND SHIPPING 04/11/2024 11:06 AM SUPERVISOR SLITTING AND SHIPPING Denisa Izaguirre MD LAB BLOOD ORDERABLES Final [...] compared to prior imaging studies performed at [facility] on 08/14/2020, 09/23/2021 and [...] compared to prior imaging studies performed at [facility] on 08/14/2020, 09/23/2021 and [...] CDT) Hep C Ab Nonreactive Nonreactive [facility] Comment:Antibodies to HCV no t detected. Does NOT exclude the possibility of recent exposure to HCV. Blood specimen (specimen) 06/04/2020 11:11 AM CDT 06/04/2020 11:25 AM CDT Piyush Yap MD LAB MICROBIOLOGY - GENER AL ORDERABLES Edited Result - Final [facility] Department [place] [address] from Last 3 Months or Most Recently Relevant to Health Maintenance [place] [address] [employer] Care Teams Net Repairer Relationship Specialty Start Date End Date Gisele Medina PA PCP - General 09/16/16 Rosita Aguilera MD [address] [place] [address] Medical Oncologist/Dry Janitor Hematology 04/30/20
--- OUTSIDE RECORDS SUMMARY | 2024-07-04 10:38 | XMS_ITS | Encounter Summary ---
Author Organization [facility] Healthcare Address [address] [place] [address] Care Team Providers Care Banquet Steward Name Role Phone Gisele Medina Primary Care Pr ovider Rosita Aguilera MD Unavailable [phone] Encounter Details Date Type Department Care Team (Late st Contact Info) Description 12/24/2019 Orders Only [facility] Health Information Management [address] [place] [address] Scanning, Provider Social History Tobacco Use Types Packs/Day Years Used Date Smoking Tobacco: Never Smokeless Tobacco: Never Alcohol Use Standard Drinks/Week Comments Not Currently 0 (1 standard drink = 0.6 oz pur e alcohol) Comments Unknown Sex and Gender Information Value Date Recorded Sex Assigned at Not on file Legal Sex Female 11:57 PM DIRECTOR OF RETAIL Gender Identity Not on file Sexual Orientation [...] COVID: Suspected 01/21/2020 01/21/2020 01/22/2020 3:42 AM DIRECTOR OF RETAIL Respiratory Infection (SHREYAS), contact + droplet Comment:Automatically added due to negative COVID-19 result. 01/22/2020 01/22/2020 02/05/2020 3:0 6 AM DIRECTOR OF RETAIL COVID: Suspected 04/22/2020 04/22/2020 04/23/2020 5:43 AM DIRECTOR OF RETAIL COVID: Suspected 10/29/2020 10/29/2020 10/29/2020 5:33 PM CDT COVID: Suspected 12/02/2020 12/02/2020 12/02/2020 11:13 PM CDT COVID: Suspected 03/03/2021 03/03/2021 03/03/2021 3:39 PM DIRECTOR OF RETAIL COVID: Suspected 03/03/2021 03/03/2021 03/04/2021 9:05 PM DIRECTOR OF RETAIL COVID: Suspected 03/13/2021 03/14/2021 03/14/2021 10:11 PM DIRECTOR OF RETAIL COVID: Suspected 03/19/2021 03/19/2021 03/20/2021 12:54 AM DIRECTOR OF RETAIL COVID19 03/19/2021 03/19/2021 03/29/2021 3:05 AM DIRECTOR OF RETAIL COVID: Recovered Comment:Added based on recent COVID infection. 03/29/2021 03/31/2021 07/27/2021 3:05 AM C DT COVID: Suspected 01/01/2022 01/01/2022 01/02/2022 3:06 AM CDT COVID: Suspected 01/01/2022 01/01/2022 01/02/2022 8:59 AM CDT COVID: Suspected 07/02/2022 07/02/2022 07/02/2022 11:33 PM CDT COVID: Suspected 11/24/2022 11/24/2022 11/24/2022 3:44 PM CDT COVID: Suspected 05/18/2024 05/18/2024 05/18/2024 3:54 PM CDT documented as of this encounter Care Teams Banquet Steward Relationship Specialty Start Date End Date Gisele Medina PA PCP - General 09/16/16 Rosita Aguilera MD [address] [place] [address] Medical Oncologist/Naphthol Soaping Machine Operator Hematology 04/30/20 documented as of this encounter
--- OUTSIDE RECORDS SUMMARY | 2024-07-04 10:38 | XMS_ITS | Encounter Summary ---
Author Organization [facility] Healthcare Address [address] [place] [address] Care Team Providers Care Ekg Tech Name Role Phone Gisele Medina Primary Care Pr ovider Rosita Aguilera MD Unavailable [phone] Encounter Details Date Type Department Care Team (Late st Contact Info) Description 07/03/2021 Orders Only [facility] Health Information Management [address] [place] [address] Scanning, Provider Social History Tobacco Use Types Packs/Day Years Used Date Smoking Tobacco: Never Smokeless Tobacco: Never Alcohol Use Standard Drinks/Week Comments Not Currently 0 (1 standard drink = 0.6 oz pur e alcohol) Comments Unknown Sex and Gender Information Value Date Recorded Sex Assigned at Not on file Legal Sex Female 11:57 PM SENIOR SYSTEM OPERATOR Gender Identity Not on file Sexual [...] documented as of this encounter Care Teams Ekg Tech Relationship Specialty Start Date End Date Gisele Medina PA PCP - General 09/16/16 Rosita Aguilera MD [address] [place] [address] Medical Oncologist/Substation Wireman Hematology 04/30/20 documented as of this encounter
--- OUTSIDE RECORDS SUMMARY | 2024-07-04 10:38 | XMS_ITS | Referral Summary ---
Author Organization [facility] Address [address] [place] [address] Care Team Providers Care Dry Transfer Worker Name Role Phone Gisele Medina Primary Care Pr ovider Rosita Aguilera MD [facility] [phone] Encounters * This document contains information received from the source organization and may not represent a complete record from that organization. Date Type Department Care Team Description 06/14/2024 8:00 AM CDT Infusion [facility] Infusion Therapy [address] [facility] 5th [place] [address] Long-term current use of high risk medication other than anticoagulant (Primary Dx) 05/18/2024 9:39 AM CDT - 05/18/2024 11:59 PM CDT Hospital Encounter [facility] [address] [place] [address] Respiratory illness; Fever, unspecified fever cause; Cough, unspecified type; Body aches; Nonintractable headache, unspecified chronicity pattern, unspecified headache type; Sore throat; Nasal congestion; Runny nose; Fatigue, unspecified type Discharge Disposition: Discharge to home or self care 05/18/2024 9:45 AM CDT Clinical Support [facility] at [address] [address] Encounter for screening for COVID-19 [Z11.52] (Primary Dx) 05/17/2024 1:00 PM CDT Telemedicine [facility] Psychiatry [address] [facility] 2nd Floor [address] [place] [id number] Leandra Yanez, JOSEPH Adjustment disorder with depressed mood in remission (Primary Dx) 05/10/2024 Telephone [facility] Cardiology [address] [facility] 8th [place] [address] [place] [address] Anand Portillo New Patient 05/03/2024 1:00 PM WATER SUPERINTENDENT Infusion [facility] Infusion Therapy [address] [facility] 5th [place] [address] [place] [address] Long-term current use of high risk medication other than anticoagulant (Primary Dx) 04/19/2024 9:00 AM WATER SUPERINTENDENT Office Visit [facility] Psychiatry [address] [facility] 2nd Floor [address] [place] [address] Leandra Yanez LCSW Adjustment disorder with depressed mood in remission (Primary Dx) 04/11/2024 10:15 AM WATER SUPERINTENDENT Lab [facility] Endocrinology Metabolism and Lipid [address] [facility] 5th [place] [address] [place] [address] Rheumatoid arthritis of multiple sites with negative rheumatoid factor (HCC) 04/11/2024 9:40 AM WATER SUPERINTENDENT Office Visit [facility] Rheumatology [address] [facility] 5th [place] [address] [place] [address] Denisa Izaguirre MD Rheumatoid arthritis of multiple [...] Noted Date Diagnosed Date [facility] with negative rheumatoid factor 12/24/2020 [...] 04/02/2020 Assessment & Plan (04/02/2020 1:35 PM WATER SUPERINTENDENT): Mild. Suspect was worse last 2 mornings. [...] 09/15/2017 Assessment & Plan (04/02/2020 1:34 PM WATER SUPERINTENDENT): Monitor. Mild ocular HTN, chronic. Has follow [...] on file Legal Sex Female 11:57 PM WATER SUPERINTENDENT Gender Identity Not on file Sexual Orientation Not on file Last Filed Vital Signs Vital Sign Reading Time Taken Comments Blood Pressure 130/83 06/14/2024 8:01 AM CDT Pulse 69 06/14/2024 8:01 AM CDT Temperature 36.4 C (97.6 F) 04/11/2024 9:37 AM WATER SUPERINTENDENT Respiratory Rate 14 06/14/2024 8:01 AM CDT Oxygen Saturation 100% 05/03/2024 1:13 PM WATER SUPERINTENDENT Inhaled Oxygen Concentration - - Weight 62.6 kg (138 lb) 05/03/2024 12:40 PM WATER SUPERINTENDENT Height 157.5 cm (5' 2 ) 04/11/2024 9:37 AM WATER SUPERINTENDENT Body Mass Index 25.24 04/11/2024 9:37 AM WATER SUPERINTENDENT Plan of Treatment Not on file Procedures Procedure Name Priority Date/Time Associated Diagnosis Comments INFLUENZA A/B, RSV, AND COVID-19 PCR Routine 05/18/2024 9:39 AM CDT Respiratory illness Fever, unspecified fever cause Cough, unspecified type Body aches Nonintractable headache, unspecified chronicity pattern, unspecified headache type Sore throat Nasal congestion Runny nose Fatigue, unspecified type COMPREHENSIVE METABOLIC PANEL Routine 04/11/2024 10:15 AM WATER SUPERINTENDENT Rheumatoid arthritis of multiple sites with negative rheumatoid factor (HCC) CBC WITH AUTO DIFFERENTIAL Routine 04/11/2024 10:15 AM WATER SUPERINTENDENT Rheumatoid arthritis of multiple sites with negative [...] PCR Nasopharyngeal (05/18/2024 9:39 AM CDT) Pathologist [facility] COVID-19 RNA Negative Negative Influenza A RNA Negative Negative [facility] Influenza B RNA Negative Negative [facility] RSV RNA Negative Negative [facility] Comment: Interpretive data: Testing performed by [facility]. This test is performed using the [employer] Xpert Xpress CoV-2/Flu/RSV plus assay. This is a multiplex, real-time reverse transcriptase PCR assay intended for the qualitative detection of nucleic acid from SARS-CoV-2, influenza A, influenza B, and respiratory syncytial virus. This assay has been cleared by the [place] Food and Drug administration. The performance characteristics have been verified by the [facility]. Results must be considered in the clinical context, and a negative result does not rule out infection. 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 Fever, cough, shortness of breath)?->Yes Reason for testing?->Symptomatic Is the Patient experiencing symptoms consistent with COVID?->Yes us Taras Rivera MD LAB MICROBIOLOGY - NERAL ORDERABLES Final Result [place] [address] Department [place] [address] * CBC with auto differential (04/11/2024 10:15 AM WATER SUPERINTENDENT) Pathologist [facility] White Blood Count 8.5 3.6 - 11.2 [...] - [facility] Blood 04/11/2024 10:1 5 AM WATER SUPERINTENDENT 04/11/2024 11:06 AM WATER SUPERINTENDENT us Denisa Izaguirre MD LAB BLOOD ORDERABLES Final Result [facility] * Comprehensive metabolic panel (04/11/2024 10:15 AM WATER SUPERINTENDENT) Total Protein 7.5 6.1 - 8.4 g/dL [...] - [facility] Blood 04/11/2024 10:1 5 AM WATER SUPERINTENDENT 04/11/2024 11:06 AM WATER SUPERINTENDENT Denisa Izaguirre MD LAB BLOOD ORDERABLES Final [...] compared to prior imaging studies performed at [facility] on 08/14/2020, 09/23/2021 and 08/13/2022. The breasts [...] compared to prior imaging studies performed at [facility] on 08/14/2020, 09/23/2021 and 08/13/2022. The breasts [...] GENER AL ORDERABLES Edited Result - Final [facility] [address] [facility] [place] [address] from Last 3 Months or Most Recently Relevant to Health Maintenance Insurance [facility] [employer] Care Teams Dry Transfer Worker Relationship Specialty Start Date End Date Gisele Medina PA PCP - General 09/16/16 Rosita Aguilera MD [address] [place] [address] Medical Oncologist/Engraver [facility] Hematology 04/30/20
--- NOTE | 2024-07-04 10:39 | ED_ITS ---
HPI - Nausea/Vomiting/Diarrhea General Chief complaint: Nausea/Vomiting/Diarrhea Stated complaint: VOMITING Time Seen by Provider: 07/04/24 09:45 Source: patient Mode of arrival: wheelchair Limitations: no limitations History of Present Illness HPI Narrative: This is a 48-year-old female that presents to the emergency department for nausea, vomiting and diarrhea. Ongoing since earlier this morning. Reports she feels lightheaded, weak. Denies fevers, dysuria, hematuria. Related Data Home Medications ?Medication ?Instructions ?Recorded ?Confirmed ?Last Taken ?Type infliximab-dyyb 100 mg intravenous See Rx Instructions IV .COMPLEX 10/06/21 12/04/21 Unknown History solution (Inflectra) levothyroxine 112 mcg capsule 112 mcg PO DAILY 10/06/21 12/04/21 10/20/21 History methotrexate sodium 10 mg tablet 20 mg PO WEEKLY 10/06/21 12/04/21 Unknown History Allergies Allergy/AdvReac Type Severity Reaction Status Date / Time ciprofloxacin Allergy Severe Anaphylaxis Verified 04/28/22 13:22 levofloxacin Allergy Intermediate Hives Verified 04/28/22 13:22 zolpidem Allergy Mild Rash Verified 04/28/22 13:22 Review of Systems 2 Review of Systems: CONSTITUTIONAL: Denies fever GASTROINTESTINAL: Reports abdominal pain, nausea, vomiting, and diarrhea. GENITOURINARY: Denies dysuria or hematuria. All systems reviewed & are unremarkable except as noted in HPI and below PMFSH Past Medical History Medical History Anemia, unspecified Yajaira's thyroiditis Hypothyroidism, unspecified Restless leg syndrome Rheumatoid arthritis Vitamin D deficiency Wears glasses Surgical History Surgical History History of section History of ear surgery History of kidney surgery History of tympanoplasty Family History Family History Mother Family history of diabetes mellitus in first degree relative Family history of type 2 diabetes mellitus Father Patient's father is in good health Grandparent Family history of type 2 diabetes mellitus Sibling Amyloidosis Other Diabetes mellitus Family history of cardiovascular disease Social History Social History Smoking status: Never smoker Alcohol intake: never Substance use: never Living arrangements: with family Gender identity (if verbalized by the patient): Female Spiritual care concerns: No Exam 2 Narrative: GENERAL: Well-appearing, well-nourished, and in no acute distress. HEAD: Normocephalic, atraumatic. EYES: EOMI. ENT: Nares clear, no rhinorrhea or epistaxis. Mucous membranes moist. CHEST: Clear to auscultation. No respiratory distress. No wheezes rales or rhonchi HEART: Regular rate and rhythm. No murmur heard. Normal peripheral pulses. ABDOMEN: Soft, nondistended, normal active bowel sounds. Mild tenderness to palpation in the epigastrium, without guarding EXTREMITIES: Normal range of motion. No edema. SKIN: Warm, dry, no rash. NEURO: No focal deficits. Alert and oriented x3. PSYCH: Normal mood and affect Course Course Emergency Course: patient updated on her workup and agrees with plan of care Vital Signs Vital signs: Vital Signs Temperature 97.9 F 07/04/24 10:04 Pulse Rate 84 07/04/24 10:04 Respiratory Rate 16 07/04/24 10:04 Blood Pressure 111/57 L 07/04/24 10:04 Pulse Oximetry 98 07/04/24 10:04 Oxygen Delivery Room Air 07/04/24 10:04 Temperature 97.9 F 07/04/24 10:04 Pulse Rate 84 07/04/24 10:04 Respiratory Rate 16 07/04/24 10:04 Blood Pressure 111/57 L 07/04/24 10:04 Pulse Oximetry 98 07/04/24 10:04 Oxygen Delivery Room Air 07/04/24 10:04 MDM - Nausea/Vomiting/Diarrhea MDM Narrative Medical decision making narrative: Patient presents the emergency department for nausea, vomiting and diarrhea. She is afebrile and nontoxic appearing. Her vitals are stable. Cbc without leukocytosis. Metabolic panel and lipase without concerning findings. Urine with trace leuk esterase, no white blood cells. Patient does not have any urinary symptoms. CT abdomen and pelvis is without acute intra-abdominal findings. Patient updated on her workup and agrees with plan of care. She is to follow up with primary provider. She was given warnings to return to the ER Differential Diagnosis Differential diagnosis: Likely food poisoning, gastroenteritis, drug-induced nausea and vomiting, dehydration and other (diverticulitis, UTI, kidney stone) Lab Data Attestation: I reviewed the patient's lab results. 07/04/24 10:02 07/04/24 10:02 Labs: Lab Results 07/04/24 07/04/24 07/04/24 Range/Units 10:02 11:43 11:44 WBC 8.7 (4.5-10.0) K/mm3 RBC 4.13 L (4.2-5.4) M/mm3 Hgb 12.4 (12.0-15.0) g/dL Hct 39.2 (37.0-47.0) % MCV 94.9 (80-100) fl MCH 30.0 (26-34) pg MCHC 31.6 L (32-36) g/dl RDW 14.6 H (11.5-14.5) % Plt Count 230 (150-375) k/mm3 MPV 10.2 (7.4-10.4) fl Immature Gran % (Auto) 0.3 (0-0.5) % Neut % (Auto) 91.6 H (45.5-73.1) % Lymph % (Auto) 3.4 L (18.3-44.2) % [place] % (Auto) 3.2 (2.6-8.5) % Eos % (Auto) 1.3 (0-4.4) % Baso % (Auto) 0.2 (0.2-1.2) % Lymph # (Auto) 0.30 L (0.9-3.2) K/mm3 [place] # (Auto) 0.3 (0.1-0.6) K/mm3 Eos # (Auto) 0.1 (0-0.3) K/mm3 Baso # (Auto) 0.0 (0.0-0.1) K/mm3 Abs Immat Gran (auto) 0.03 (0.00-0.031) K/mm3 Absolute Neuts (auto) 8.0 H (1.3-6.7) K/mm3 Absolute Nucleated RBC 0.000 (0.0-0.012) K/mm3 Nucleated RBC % 0.0 (0.0-0.2) % Sodium 138 (137-145) mmol/L Potassium 4.4 (3.4-5.0) mmol/L Chloride 104 (98-107) mmol/L Carbon Dioxide 26 (22-30) mmol/L Anion Gap 8 (4-12) mmol/L BUN 21 H (7-17) mg/dL Creatinine 0.70 (0.7-1.0) mg/dL Estim Creat Clear Calc 66 ml/min Estimated GFR > 60 (59 - ) Glucose 108 (65-110) mg/dL Calcium 8.9 (8.4-10.2) mg/dL Total Bilirubin 0.8 (0.2-1.3) mg/dL AST 23 (14-36) U/L ALT 20 (6-35) U/L Alkaline Phosphatase 63 (38-126) U/L Total Protein 8.0 (6.3-8.2) g/dL Albumin 4.3 (3.5-5.1) g/dL Lipase 60 (23-300) U/L Urine Color Yellow (Yellow) Urine Appearance Clear (Clear) Urine pH 6.0 (5.0-9.0) Ur Specific [place] 1.020 (1.001-1.035) Urine Protein Trace (Negative) mg/dL Urine Glucose (UA) Negative (Negative) mg/dL Urine Ketones 1+ H (Negative) mg/dL Ur Blood (Man) 3+ H (Negative) Urine Nitrate Negative (Negative) Urine Bilirubin Negative (Negative) Urine Urobilinogen 0.2 (<2.0) mg/dL Leukocyte Esterase Rfl Trace H (Negative) ALESHA/UL Urine RBC 6-10 H (0-2) /hpf Urine WBC 0-5 (0-3) /hpf Ur Squamous Epith Cells Few (Few) /hpf Urine Bacteria 1+ H /hpf Urine Casts 0-2 POC Urine HCG, Qual Negative (Negative) Imaging Data Radiologist's impression: ITS Impressions Abdomen/Pelvis CT 07/04/24 12:25 IMPRESSION: 1. Small amount of likely physiologic free fluid in the deep pelvis. No other acute intra-abdominal/pelvic process. 2. 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 Critical Care Time Critical Care Time Critical Care Time: No Discharge Plan Discharge Clinical Impression: Gastroenteritis Nausea and vomiting Qualifiers: Vomiting type: unspecified Qualified Code(s): R11.2 - Nausea with vomiting, unspecified Patient Disposition: Home Condition: Stable Instructions: Gastroenteritis (ED), Acute Nausea and Vomiting (ED), Abdominal Pain (ED) Additional Instructions: Return to the ER if you experience fever, abdominal pain with nausea and vomiting, you are unable to keep down liquids or solids, blood in the stool, pain or burning with urination, blood in the urine or any other symptoms that are concerning to you Small, frequent meals. [place] diet. Remain well hydrated. Ondansetron as needed for nausea Follow up with your primary care doctor Patient Language: Malawian Prescriptions: New ondansetron 4 mg tablet,disintegrating 4 mg PO Q8H PRN (Reason: nausea and vomiting) Qty: 10 0RF No Action methotrexate sodium 10 mg tablet 20 mg PO WEEKLY levothyroxine 112 mcg capsule 112 mcg PO DAILY Inflectra 100 mg recon soln See Rx Instructions IV .COMPLEX Rx Instructions: intravenously Every 8 Weeks; phenazopyridine [Pyridium] 100 mg tablet 100 mg PO TID PRN (Reason: pain) Qty: 6 0RF Follow-up/Referrals: Adam,CONRADO Jaquez [Primary Care Provider] -
--- OUTSIDE RECORDS SUMMARY | 2024-07-04 10:39 | XMS_ITS | Continuity of Care Document ---
Author Organization [facility] Address [address] [place] [address] [address] [place] [address] Phone Care Team Providers Care Mill Order Scheduler Name Role Phone Lawrence OD, Vic Unavailable Unavailable Procedures Procedure Date Eye Exam Established Pt Advance Directives Directive Yes / No Effective Date File Name No Information Encounters Encounter Description Practice Location Reason(s) For Visit Diagnoses Date Provider Providers Copied on Encounter [facility], [id number] [place] [address] [address], [place], [place], [id number], [place] tel:[phone] [facility] No Information 1-201 0 Lawrence OD Vic. [address] , [address], [place], [address], [place]. tel:[phone] Family History Family Member Type Diagnosis Age At Onset No Information Payers Payer name Insurance type Covered republican ID Authoriza corine(s) [facility] BL [id number] Social History Type Description Quantity Date Captured [...]
[2024-07-04] MEDS: SODIUM CHLORIDE 0.9% IV 1,000 ML 999 ML IV CONT (10:47)
[2024-07-04] MEDS: ONDANSETRON INJ 4 MG/2 ML VIAL IV PUSH (10:47)
[2024-07-04] MEDS: FAMOTIDINE 20 MG/2 ML VIAL IV PUSH (10:47)
[2024-07-04 11:01] VITALS: BP 110/80; PULSE 86; RESP 20; TEMP 36.6; O2SAT 100
[2024-07-04 11:46] LABS: BEDSIDEPREGUCG Negative (Negative)
[2024-07-04 11:58] LABS: Add Urine Microscopic? YES; Appearance Urine Clear (Clear); Bacteria Urine 1+ /hpf; Bilirubin Urine Negative (Negative); Blood Urine 3+ (Negative); Color Urine Yellow (Yellow); Glucose Urine UA Negative (Negative); Ketones Urine 1+ mg/dL (Negative); Leukocyte Esterase Ur Trace LEU/UL (Negative); Nitrate Urine Negative (Negative); Non Pathogenic Casts 0-2; Protein Urine Trace mg/dL (Negative); Squamous Epithelial Cell Urine Few /hpf (Few); Urobilinogen Urine 0.2 mg/dL (<2.0); WBC Urine 0-5 /hpf (0-3)
[2024-07-04 12:30] VITALS: BP 112/78; PULSE 81; RESP 14; TEMP 36.6; O2SAT 100
[2024-07-04 12:45] VITALS: BP 116/74; PULSE 83; RESP 17; TEMP 36.6; O2SAT 100
== END 2024-07-04 13:24 | disposition home or self-care (01) ==
PROVIDERS: Emergency Provider Physician Assistant; PCP Physician Assistant
DX: K52.9 Noninfective gastroenteritis and colitis, unspecified (principal); E06.3 Autoimmune thyroiditis; E55.9 Vitamin D deficiency, unspecified; M06.9 Rheumatoid arthritis, unspecified; G25.81 Restless legs syndrome; Z86.2 Personal history of diseases of the blood and blood-forming organs and certain disorders involving the immune mechanism; N26.1 Atrophy of kidney (terminal); Q62.5 Duplication of ureter
CPT/HCPCS: 36415; 74177; 80053; 81001; 81025; 83690; 85025; 96361; 96374; 96375; 99284; J2405; J7030; Q9967

== ENCOUNTER 2024-07-06 12:46 | Outpatient (CLI) | payer OTHER, SELFPAY ==
--- NOTE | ~2024-07-06 | XR_ITS ---
EXAMINATION: XR chest 2V 07/06/2024 12:59 INDICATION: Shortness of breath PROCEDURE: 2 view chest COMPARISON: Comparison to multiple prior studies sequentially, with oldest reviewed study dated 09/2011. FINDINGS: The lungs are clear. The cardiomediastinal silhouette is within normal limits. There are no pleural effusions. There is no pneumothorax suspected. IMPRESSION: 1: NO ACUTE CARDIOPULMONARY DISEASE. Reviewed, dictated and finalized at location A.
== END 2024-07-06 12:47 | disposition home or self-care (01) ==
PROVIDERS: PCP Physician Assistant; Visit Provider Physician Assistant
DX: R06.02 Shortness of breath (principal)
CPT/HCPCS: 71046